=== PATIENT | male | born 1945 | race Caucasian/White ===

== ENCOUNTER 2017-06-24 14:42 | Emergency (ER) | payer MEDICARE, BC ==
[2017-06-24 17:16] LABS: Urine Bacteria Absent (Absent); Urine Bilirubin Negative (Negative); Urine Glucose Negative (Negative); Urine Nitrite Negative (Negative)
--- NOTE | 2017-06-24 17:21 | RAD ---
Indication: Left lower quadrant pain. CT of the abdomen and pelvis was performed without oral or IV contrast administration. Coronal and sagittal reconstructed images were obtained. The lung bases demonstrate pleural thickening in the left lung base with left basilar atelectasis. No alveolar consolidation is noted. Chronic pleural changes likely due to prior lung carcinoma is noted. There is a small nodule in the right middle lobe measuring 3 mm which was present on prior exam of May 23, 2017. The liver is normal in size. Mild diffuse decreased density of the liver is present consistent with hepatic steatosis. More focal hepatic steatosis is noted in the posterior aspect of the medial segment of the left lobe of liver. The gallbladder demonstrates no calcified gallstones. No pericholecystic fluid or wall thickening is identified. The pancreas demonstrates no mass or pancreatic duct dilatation. The spleen is normal in size. No adrenal lesions are noted. The kidneys demonstrates no hydronephrosis. Aorta and inferior vena cava are unremarkable. No dilated loops of bowel are noted. CT of the pelvis demonstrates focal wall thickening at the junction between the descending colon and the sigmoid colon consistent with diverticulitis. Focal wall thickening is noted. Pericolonic infiltration of fat is noted. No evidence of peridiverticular abscess is noted. Urinary bladder is unremarkable. The prostate is otherwise unremarkable. IMPRESSION: DIVERTICULITIS OF THE JUNCTION BETWEEN THE DESCENDING COLON AND SIGMOID COLON WITHOUT EVIDENCE OF PERIDIVERTICULAR ABSCESS. NODULE IN THE RIGHT MIDDLE LOBE IS UNCHANGED FROM PREVIOUS EXAM.
[2017-06-24 17:25] LABS: Hematocrit 38 % (42-52); Hemoglobin 12.9 g/dl (14.0-18.0); Mean Corpuscular HGB Conc 34 g/dl (31-36); Mean Corpuscular Hemoglobin 29 pg (27-31); Mean Corpuscular Volume 87 fL (80-94); Mean Platelet Volume 8 um3 (7.4-10.4); Red Blood Count 4.41 10^6/ul (4.0-5.4); Red Cell Distribution Width 15 % (10.5-15)
[2017-06-24 17:37] LABS: ALT 22 U/L (7-52); AST 21 U/L (13-39); Albumin 4.2 g/dL (3.2-5.2); Alkaline Phosphatase 100 U/L (34-104); Anion Gap 7 mmol/L (2-11); BUN/Creatinine Ratio 11.6 (8-20); Blood Urea Nitrogen 20 mg/dL (6-24); C Reactive Protein 75.42 mg/L (< 5.00); CO2 Carbon Dioxide 29 mmol/L (22-32); Calcium 9.4 mg/dL (8.6-10.3); Chloride 100 mmol/L (101-111); EGFR African American 50.5 (>60); EGFR Non-African American 39.2 (>60); Globulin 2.9 g/dL (2-4); Glucose 114 mg/dL (70-100); Lipase < 10 U/L (11.0-82.0); Potassium 4.1 mmol/L (3.5-5.0); Sodium 136 mmol/L (133-145); Total Protein 7.1 g/dL (6.4-8.9)
[2017-06-24 17:48] VITALS: BP 127/69
--- NOTE | 2017-06-24 22:24 | ED ---
Camilla Novoa Alfonso, scribed for Mike Terrell MD on 06/24/17 at 1614 . Abdominal Pain/Male - HPI Summary HPI Summary: This patient is a 72 year old M presenting to [facility] with a chief complaint of LLQ abdominal pain since yesterday. The patient rates the pain 9/10 in severity. Symptoms aggravated by movement. Symptoms alleviated by nothing. Patient reports loss of appetite. His last BM was at 1100 today. He reports having diverticulitis 30 years ago and these symptoms are similar. - History of Current Complaint Chief Complaint: EDAbdPain Stated Complaint: ABD PAIN Time Seen by Provider: 06/24/17 15:52 Hx Obtained From: Patient Onset/Duration: Sudden Onset, Lasting Days - yesterday, Still Present Timing: Constant Severity Initially: Severe Severity Currently: Severe Pain Intensity: 9 Pain Scale Used: 0-10 Numeric Location: Discrete At: LLQ Aggravating Factor(s): Movement Alleviating Factor(s): Nothing Associated Signs And Symptoms: Positive: Decreased Appetite Similar Episode/Dx As:: diverticulitis 30 years ago - Allergies/Home Medications Allergies/Adverse Reactions: Allergies Allergy/AdvReac Type Severity Reaction Status Date / Time Sulfa Antibiotics Allergy Hives Verified 07/29/16 13:42 PMH/Surg Hx/FS Hx/Imm Hx Endocrine/Hematology History: Denies: Hx Diabetes Cardiovascular History: Reports: Hx Hypertension - ON MEDS Denies: Hx Pacemaker/ICD, Other Cardiovascular Problems/Disorders Respiratory History: Reports: Hx Chronic Obstructive Pulmonary Disease (COPD), Hx Sleep Apnea, Other Respiratory Problems/Disorders - LUNG MASS / COPD ACCORDING TO H&P 1/2 LEFT LUNG REMOVED GI History: Reports: Hx Gastroesophageal Reflux Disease, Hx Hiatal Hernia Denies: Other GI Disorders History: Reports: Other Problems/Disorders - ENLARGE PROSTATE, CONTROL WITH MEDS Denies: Hx Renal Disease Musculoskeletal History: Reports: Hx Arthritis - HANDS Sensory History: Denies: Hx Contacts or Glasses, Hx Hearing Aid Opthamlomology History: Denies: Hx Contacts or Glasses Psychiatric History: Denies: Hx Panic Disorder - Cancer History Cancer Type, Location and Year: lung Hx Chemotherapy: No - Surgical History Surgery Procedure, Year, and Place: 2011 T1, T2 LAMINOTOMY AND EXCISION OF HERNIATED DISC, [facility]. 2016 RIGHT TOE SURGERY, [facility]. LEFT FOOT REMOVED FIBROMATOSIS TUMORS 3084-9150. 1/2 LEFT LUNG REMOVED 05/27/16 Hx Anesthesia Reactions: No Infectious Disease History: No Infectious Disease History: Denies: Traveled Outside the [place] in Last 30 Days - Family History Known Family History: Negative: Cardiac Disease, Diabetes - Social History Alcohol Use: Occasionally Alcohol Amount: SOCIALLY Substance Use Type: Reports: None Smoking Status (MU): Former Smoker Amount Used/How Often: 2 PPD FOR 45 YEARS Have You Smoked in the Last Year: No Review of Systems Negative: Fever Positive: Abdominal Pain - LLQ pain, Other - loss of appetite All Other Systems Reviewed And Are Negative: Yes Physical Exam Triage Information Reviewed: Yes Vital Signs On Initial Exam: Initial Vitals Temp Pulse Resp BP Pulse Ox 98.3 F 107 20 136/94 96 06/24/17 14:46 06/24/17 14:46 06/24/17 14:46 06/24/17 14:46 06/24/17 14:46 Vital Signs Reviewed: Yes Appearance: Positive: Well-Appearing, No Pain Distress Skin: Positive: Warm, Skin Color Reflects Adequate Perfusion, Dry Head/Face: Positive: Normal Head/Face Inspection Eyes: Positive: Normal ENT: Positive: Normal ENT inspection Neck: Positive: Supple, Nontender Cardiovascular: Positive: RRR Abdomen Description: Positive: Soft, Other: - LLQ tenderness Bowel Sounds: Positive: Present Musculoskeletal: Positive: Normal, Strength/ROM Intact Neurological: Positive: Normal, Sensory/Motor Intact, Alert, Oriented to Person Place, Time, CN Intact II-III Psychiatric: Positive: Affect/Mood Appropriate - Kenn Coma Scale Coma Scale Total: 15 Diagnostics - Vital Signs Vital Signs Temp Pulse Resp BP Pulse Ox 06/24/17 16:00 98 93 06/24/17 15:55 98.3 F 109 20 130/65 98 06/24/17 15:51 107 97 06/24/17 15:49 130/65 06/24/17 14:46 98.3 F 107 20 136/94 96 - Laboratory Lab Results: Lab Results 06/24/17 06/24/17 06/24/17 Range/Units 16:54 17:10 17:10 WBC 10.0 (3.5-10.8) 10^3/ul RBC 4.41 (4.0-5.4) 10^6/ul Hgb 12.9 L (14.0-18.0) g/dl Hct 38 L (42-52) % MCV 87 (80-94) fL MCH 29 (27-31) pg MCHC 34 (31-36) g/dl RDW 15 (10.5-15) % Plt Count 166 (150-450) 10^3/ul MPV 8 (7.4-10.4) um3 Neut % (Auto) 75.7 (38-83) % Lymph % (Auto) 10.6 L (25-47) % [place] % (Auto) 12.3 H (1-9) % Eos % (Auto) 0.9 (0-6) % Baso % (Auto) 0.5 (0-2) % Absolute Neuts (auto) 7.5 (1.5-7.7) 10^3/ul Absolute Lymphs (auto) 1.1 (1.0-4.8) 10^3/ul Absolute Monos (auto) 1.2 H (0-0.8) 10^3/ul Absolute Eos (auto) 0.1 (0-0.6) 10^3/ul Absolute Basos (auto) 0.1 (0-0.2) 10^3/ul Absolute Nucleated RBC 0 10^3/ul Nucleated RBC % 0 Sodium 136 (133-145) mmol/L Potassium 4.1 (3.5-5.0) mmol/L Chloride 100 L (101-111) mmol/L Carbon Dioxide 29 (22-32) mmol/L Anion Gap 7 (2-11) mmol/L BUN 20 (6-24) mg/dL Creatinine 1.73 H (0.67-1.17) mg/dL Est GFR ( Amer) 50.5 (>60) Est GFR (Non-Af Amer) 39.2 (>60) BUN/Creatinine Ratio 11.6 (8-20) Glucose 114 H (70-100) mg/dL Lactic Acid (0.5-2.0) mmol/L Calcium 9.4 (8.6-10.3) mg/dL Total Bilirubin 0.80 (0.2-1.0) mg/dL AST 21 (13-39) U/L ALT 22 (7-52) U/L Alkaline Phosphatase 100 (34-104) U/L C-Reactive Protein 75.42 H (< 5.00) mg/L Total Protein 7.1 (6.4-8.9) g/dL Albumin 4.2 (3.2-5.2) g/dL Globulin 2.9 (2-4) g/dL Albumin/Globulin Ratio 1.4 (1-3) Lipase < 10 L (11.0-82.0) U/L Urine Color Yellow Urine Appearance Cloudy Urine pH 5.0 (5-9) Ur Specific [place] 1.020 (1.010-1.030) Urine Protein Negative (Negative) Urine Ketones Negative (Negative) Urine Blood 1+ H (Negative) Urine Nitrate Negative (Negative) Urine Bilirubin Negative (Negative) Urine Urobilinogen Negative (Negative) Ur Leukocyte Esterase Negative (Negative) Urine WBC (Auto) Absent (Absent) Urine RBC (Auto) 1+(3-5/hpf) H (Absent) Urine Bacteria Absent (Absent) Urine Glucose Negative (Negative) 06/24/17 Range/Units 17:10 WBC (3.5-10.8) 10^3/ul RBC (4.0-5.4) 10^6/ul Hgb (14.0-18.0) g/dl Hct (42-52) % MCV (80-94) fL MCH (27-31) pg MCHC (31-36) g/dl RDW (10.5-15) % Plt Count (150-450) 10^3/ul MPV (7.4-10.4) um3 Neut % (Auto) (38-83) % Lymph % (Auto) (25-47) % [place] % (Auto) (1-9) % Eos % (Auto) (0-6) % Baso % (Auto) (0-2) % Absolute Neuts (auto) (1.5-7.7) 10^3/ul Absolute Lymphs (auto) (1.0-4.8) 10^3/ul Absolute Monos (auto) (0-0.8) 10^3/ul Absolute Eos (auto) (0-0.6) 10^3/ul Absolute Basos (auto) (0-0.2) 10^3/ul Absolute Nucleated RBC 10^3/ul Nucleated RBC % Sodium (133-145) mmol/L Potassium (3.5-5.0) mmol/L Chloride (101-111) mmol/L Carbon Dioxide (22-32) mmol/L Anion Gap (2-11) mmol/L BUN (6-24) mg/dL Creatinine (0.67-1.17) mg/dL Est GFR ( Amer) (>60) Est GFR (Non-Af Amer) (>60) BUN/Creatinine Ratio (8-20) Glucose (70-100) mg/dL Lactic Acid 1.0 (0.5-2.0) mmol/L Calcium (8.6-10.3) mg/dL Total Bilirubin (0.2-1.0) mg/dL AST (13-39) U/L ALT (7-52) U/L Alkaline Phosphatase (34-104) U/L C-Reactive Protein (< 5.00) mg/L Total Protein (6.4-8.9) g/dL Albumin (3.2-5.2) g/dL Globulin (2-4) g/dL Albumin/Globulin Ratio (1-3) Lipase (11.0-82.0) U/L Urine Color Urine Appearance Urine pH (5-9) Ur Specific [place] (1.010-1.030) Urine Protein (Negative) Urine Ketones (Negative) Urine Blood (Negative) Urine Nitrate (Negative) Urine Bilirubin (Negative) Urine Urobilinogen (Negative) Ur Leukocyte Esterase (Negative) Urine WBC (Auto) (Absent) Urine RBC (Auto) (Absent) Urine Bacteria (Absent) Urine Glucose (Negative) Result Diagrams: 06/24/17 17:10 06/24/17 17:10 Lab Statement: Any lab studies that have been ordered have been reviewed, and results considered in the medical decision making process. - CT A/P CT Interpretation Completed By: Radiologist - DIVERTICULITIS OF THE JUNCTION BETWEEN THE DESCENDING COLON AND SIGMOID COLON WITHOUT EVIDENCE OF PERIDIVERTICULAR ABSCESS. NODULE IN THE RIGHT MIDDLE LOBE IS UNCHANGED FROM PREVIOUS EXAM. ED physician has reviewed this radiology report and agrees. Abdominal Pain Fem Course/Dx - Course Course Of Treatment: Mr. Pitts presented with LLQ pain and was found to have diverticulitis. - Diagnoses Provider Diagnoses: Diverticulitis Discharge - Discharge Plan Condition: Stable Disposition: HOME Prescriptions: Ciprofloxacin TAB* [Cipro Tab*] 500 mg PO BID #20 tab Metronidazole [Flagyl 500 MG TAB] 500 mg PO TID #30 tab Patient Education Materials: Diverticulitis (ED) Referrals: Mihaela Mota, SITE WORKER [Primary Care Provider] - 1 Week The documentation as recorded by the Camilla bailey Alfonso accurately reflects the service I personally performed and the decisions made by me, Mike Terrell MD.
== END 2017-06-24 18:21 | disposition home or self-care (01) ==
LOC: ED 14:42
DX: K57.92 Diverticulitis of intestine, part unspecified, without perforation or abscess without bleeding (principal); R10.32 Left lower quadrant pain; R63.0 Anorexia
CPT/HCPCS: 36415; 74176; 80053; 81003; 81015; 83605; 83690; 85025; 86140; 99282

== ENCOUNTER 2018-12-28 10:02 | Inpatient (IN) | payer MEDICARE, BC ==
[2018-12-28] MEDS ORDERED: oxyCODONE/Acetamin 5/325 MG* TAB PO PRN (10:35)
[2018-12-28] MEDS ORDERED: Al Hydrox/Mg Hydrox/Simet LIQ* 30 ML UDC PO PRN (10:35)
[2018-12-28] MEDS ORDERED: hydrOXYzine HCL TAB* 25 MG PO PRN (10:40)
--- OUTSIDE RECORDS SUMMARY | 2018-12-28 11:27 | XMS REPORT | Continuity of Care Document ---
:1945 External Reference #:[id number] Author Name Mihaela Mota N.P. Address [address] [place] [address] Care Team Providers Name Role Phone Mihaela Mota N.P. Care Team Information Material Control Analyst Unavailable Payers Date Identification Numbers Payment Provider Subscriber Effective: 2012 Policy Number: [id number] Medicare Xander Pitts Group Name: [facility] [address] PayID: [id number] [place] [address] Policy Number: [id number] [facility] Xander Pitts PayID: [id number] [address] [place] [address] Advance Directives Description No Information Available Problems Date Description Provider Status Onset: 04/20/2007 Peptic reflux disease Mihaela Mota N.PTim Active Onset: 04/20/2007 Allergic rhinitis due to pollen Mihaela Mota N.PTim Active Onset: 05/30/2015 Benign hypertension Mihaela Mota N.PTim Active Onset: 08/29/2015 Osteoarthritis Mihaela Mota, N.PTim Active Onset: 08/10/2016 Primary malignant neoplasm of lung Mihaela Mota, N.PTim Active Onset: 11/22/2016 History of malignant neoplasm of lung Mihaela Mota, N.PTim Active Onset: 02/17/2018 Foot joint pain Mihaela Mota N.Gonzalo Active Family History Date Family Member(s) Observation Comments Father Unknown Mother COPD Number of Siblings Siblings: 3 Order Patient is the oldest of four children Social History Type Date Description Comments Sex Unknown Marital Status Occupation Retired [employer] Tobacco Use Start: Unknown current cigarette smoker 2 ppd Cigarette Use Quit - Age 69 ETOH Use Occasionally consumes alcohol Recreational Drug Use Denies Drug Use Tobacco Use Start: Unknown Patient has never smoked Smoking Status Reviewed: 08/15/18 Patient has never smoked Sun Exposure moderate amount of sun exposure Sun Exposure Does not use sunscreen Seat Belt/Car Seat sometimes uses car seat Allergies, Adverse Reactions, Alerts Date Description Reaction Status Severity Comments Sulfa Active 02/21/2014 Guaifenesin rash Active Medications Medication Date Status Form Strength Qnty SIG Indications Ordering Provider Omeprazole 11/02 Active Capsules 40mg 90caps take one Nakul DR xu Chairez, by mouth N.P. every day Ciprofloxacin 08/29 Active Tablets 500mg 20tabs 1 by Nakul HCL mouth Maskrystinale, twice a N.P. day x 10 days Omeprazole 08/04 Active Capsules 20mg 180caps [address] eulalia Chairez, twice a N.P. day Montelukast 08/04 Active Tablets 10mg 90tabs take one Nakul Sodium tablet by Mascarmita, mouth N.P. every day in the evening Pneumovax 23 08/04 Active Injection 25mcg/0.5 [place] ML Mihaela, N.P. Fluocinonide 07/18 Active Cream 0.05% 30gm apply sparingly Mashelle, to itchy N.P. rash on head three times a day Metoprolol 01/25 Active Tablets ER 50mg 90tabs Take One Nakul, Succinate ER 24HR Tablet By Maskrystinale, Mouth N.P. Every Day Losartan 11/08 Active Tablets 100mg 90tabs Take One Nakul, Potassium Tablet By Mashelle, Mouth N.P. Every Day Cialis 04/13 Active Tablets 20mg 18tabs 1 po as Nakul directed Maskrystinale, N.P. Finasteride 10/26 Active Tablets 5mg 90tabs take one Nakul, tablet by Maskrystinale, mouth N.P. every day Valtrex 05/21 Active Tablets 500mg 90tabs 1 by Nakul mouth Mashelle, every day N.P. Amoxicillin/Clav 07/18 Hx Tablets 875-125mg 20tabs 1 by Nakul ule mouth Mashelle, Potassium - twice a N.P. 08/04 day x days Omeprazole 03/16 Hx Capsules 40mg 90caps take one DR capsule Mihaela, - by mouth N.P. 08/04 every Omeprazole 02/17 Hx Capsules 20mg 30caps Take One DR Capsule Mihaela, - By Mouth N.P. 03/16 Every Amoxicillin/Clav 11/29 Hx Tablets 875-125mg 28tabs 1 by Nakul mouth Mashelle, Potassium - twice a N.P. 12/13 day x days Augmentin 11/22 Hx Tablets 875-125mg 20tabs 1 by Nakul mouth Mashelle, - twice a N.P. 01/25 day x days Symbicort 02/24 Hx Aerosol 160-4.5mc sample inhale 2 g/Act puffs by Mihaela, - mouth 2 N.P. 08/04 times day Fluticasone 01/01 Hx Suspension 50mcg/Act 16units spray 2 sprays in [facility], - each N.P. 01/25 nostr every morning as needed Cefdinir 11/28 Hx Capsules 300mg 28caps 1 by mouth Mashelle, - twice a N.P. 01/04 day x days Diclofenac 11/[address] 50mg 180tabs 1 by Nakul mouth Mashelle, - twice a N.P. Augmentin 07/22 Hx Tablets 875-125mg 28tabs 1 by mouth Mashelle, - twice a N.P. 08/29 day x days Fluocinonide 05/30 Hx Cream 0.05% 30gm apply sparingly Mashelle, - three N.P. 02/24 times day Omeprazole 05/30 Hx Capsules 40mg 90caps take one DR capsule Lucinale, - by mouth N.P. 02/17 every Levocetirizine 01/13 Hx Tablets 5mg 90tabs Take One Nakul Dihydrochloride Tablet By Mihaela, - Mouth N.P. 08/04 Every Celecoxib 10/28 Hx Capsules 200mg 60caps 1 by mouth bid Mihaela, - N.P. 08/29 Omeprazole 10/21 Hx Capsules 20mg 180caps [address] eulalia Chairez, - twice a N.P. Omeprazole 10/11 Hx Capsules 40mg 30caps [address] eulalia Chairez, - every N.P. 10/21 night at bedtime Medrol (Preet) 07/29 Hx Tablets 4mg 1pk as directed Mihaela, - N.P. 12/26 Diflucan 07/29 Hx Tablets 100mg 16tabs 2 tabs on day one Mihaela, - then N.P. 05 every x 14 days Augmentin 07/16 Hx Tablets 875-125mg 28tabs 1 by mouth Mascarmita, - twice a N.P. 07/29 day x days Ciprofloxacin 07/11 Hx Tablets 500mg 20tabs 1 by Nakul, mouth Mihaela, - twice a N.P. 07/16 day x days Cefdinir 02/21 Hx Capsules 300mg 28caps 1 po bid x 14 days Mihaela, - N.P. 04/16 Fluocinolone 10/11 Hx Cream 0.01% 60gm apply to affected Mascarmita, - area bid N.P. 10/11 Fluocinonide 10/11 Hx Cream 0.05% 30gm apply sparingly Mihaela, - three N.P. /05 times day Augmentin 08/23 Hx Tablets 875-125mg 28tabs 1 po bid x 14 days Mihaela, - N.P. 02/21 Axiron 05/16 Hx Solution 30mg/Act 1bottle apply 2 capfuls Mihaela, - (60mg) N.P. 11/08 qd directed Benicar 04/13 Hx Tablets 40mg 90tabs 1 po qd Mashelle, - N.P. 11/08 Fortesta 04/13 Hx Gel 10mg/Act 60gm 1 pump (2%) one thigh Mashelle, - qd as N.P. 05/16 directed x 1 week then 1 pump each thigh qd Metoprolol 04/13 Hx Tablets ER 25mg 90tabs 1 by Nakul, Succinate ER 24HR mouth Mascarmita, - every day N.P. 01/25 Augmentin 12/15 Hx Tablets 875-125mg 28tabs 1 by Nakul mouth Mihaela, - twice a N.P. 07/11 day x days Benicar 08/23 Hx Tablets 20mg 90tabs 1 po qd Nakul Mashelle, - N.P. 04/13 Cipro 07/18 Hx Tablets 500mg 20tabs 1 po bid Nakul x 10 days Lucinale, - N.P. 08/23 Flagyl 07/18 Hx Tablets 500mg 21tabs 1 po tid Nakul x 7 days Mihaela, - N.P. 08/23 Amoxicillin/Clav 06/15 Hx Tablets 875-125mg 28tabs 1 po q 12 tita Mota h for 14 Mascarmita, Potassium - days N.P. 07/18 Celebrex 03/13 Hx Capsules 200mg 90caps 1 by Nakul mouth Mihaela, - every day N.P. 10/28 Oxycodone/Acetam 01/06 Hx Tablets 10-325mg 32tabs 1 po q 6 Nakul inophen hours prn [place], - pain N.P. 02/08 Hydrocodone 05 Hx Tablets 5-300mg 40tabs 1-2 po q Nakul Bitartrate/Aceta 4-6h prn Mascarmita, minophen - pain N.P. 12/26 Hydrocodone/Acet /05 Hx Tablets 5-325mg 40tabs 1-2 po q Nakul 4-6h prn Mashelle, - pain N.P. 01/06 Soma 12/22 Hx Tablets 350mg 40tabs 1 po qid Nakul Mashelle, - N.P. 06/15 Oxycodone HCL 12/22 Hx Tablets 5mg 40tabs 1-2 po q 4 hours Mashelle, - prn pain N.P. 12/26 Celebrex 12/22 Hx Capsules 200mg samples 1 po qd Nakul Mashelle, - N.P. 02/01 Celebrex 12/14 Hx Capsules 200mg 30caps 1 po qd [place] Mashelle, - N.P. 12/14 Mobic 12/14 Hx Tablets 15mg 90tabs 1 po qd Nakul Mashelle, - N.P. 03/13 Naproxen 11/11 Hx Tablets 500mg 60tabs 1 po bid [place] Mashelle, - N.P. 12/14 Vimovo 10/[address] 500-20mg 60tabs 1 po bid Mashelle, - N.P. 11/11 Cialis 10/26 Hx Tablets 10mg samples one as directed Maskrystinale, - N.P. 08/23 Augmentin 06/14 Hx Tablets 875-125mg 28tabs 1 po bid [place] x 14 days Mashelle, - N.P. 10/26 Keflex 06/04 Hx Capsules 500mg 40caps 1 po qid [place] x 10 days Mashelle, - N.P. 06/14 Xyzal 05/21 Hx Tablets 5mg 90tabs 1 by mouth Mashelle, - every day N.P. 05/30 Doxycycline 05/[address] 100mg 31caps 2 po x 1 [place], Part day then Mashelle, - 1 qd x 30 N.P. Keflex 04/28 Hx Capsules 500mg 28caps 1 po qid [place] x 7 days Mashelle, - N.P. 05/21 Biaxin XL 02/02 Hx Tablets ER 500mg 10tabs 1 po qd x [place] 24HR 10 days Maskrystinale, - N.P. 04/28 Cardura 01/21 Hx Tablets 1mg 30tabs 1 po qam Nakul, Mashelle, - N.P. 01/21 Avodart 01/21 Hx Capsules 0.5mg 90caps 1 po qd [place], Mashelle, - N.P. 10/26 Cardura 01/21 Hx Tablets 1mg 30tabs 1 po qam Nakul, Mashelle, - N.P. 09/14 Augmentin 01/21 Hx Tablets 875-125mg 20tabs 1 po bid Nakul, x 10 days Mashelle, - N.P. 02/02 Prednisone 01/21 Hx Tablets 50mg 3tabs 1 po qd x Nakul 3 days Maskrystinale, - N.P. 05/21 Augmentin 10/12 Hx Tablets 875-125mg 20tabs 1 po bid [place] x 10 days Maskrystinale, - N.P. 01/21 Princess-D 12 09/21 Hx Tablets ER 60-120mg 90tabs 1 po qd [place], 12HR Maskrystinale, - N.P. 05/21 Avelox 09/21 Hx Tablets 400mg samples 1 po qd x Nakul 10 days Maskrystinale, - N.P. 10/12 Clarinex-D 24 08/12 Hx Tablets ER 5-240mg 30tabs 1 po qd Nakul, 24HR Maskrystinale, - N.P. 09/21 Cipro 07/20 Hx Tablets 500mg 28tabs 1 po bid Nakul x 14 days Maskrystinale, - N.P. 09/21 Princess-D 24 07/20 Hx Tablets ER 180-240mg samples 1 po q am Nakul, 24HR Maskrystinale, - N.P. 08/12 Celebrex 04/20 Hx Capsules 200mg 90caps 1 po qd [place] Mashelle, - N.P. 10/26 Cipro 02/24 Hx Tablets 500mg 20tabs 1 po bid x 10 days Maskrystinale, - N.P. 07/20 Anaprox DS 11/25 Hx Tablets 550mg 60tabs 1 po q 12 hr with Mascarmita, - food N.P. 02/24 Valtrex 17 Hx Tablets 1gm 90tabs 1 po qd as Mihaela, - directed N.P. 09/21 Valtrex 09/09 Hx Tablets 1gm 90tabs 1 po qd [place], Maskrystinale, - N.P. 05/21 Zovirax 09/09 Hx Ointment 5% [facility]gm [facility] day to N.P. 02/17 sor Diflucan 09/03 Hx Tablets 100mg 7tabs 1 tabs qd x 7 days Mihaela, - N.P. 06/15 Cipro 08/19 Hx Tablets 750mg 20tabs 1 bid x , 10 days Maskrystinale, - N.P. 09/03 Princess 08/12 Hx Tablets 180mg 30tabs 1 po qd , Mihaela, - N.P. 09/21 Augmentin 02/26 Hx Tablets 875mg 20tabs 1 po q [address] [facility] 08/12 Xyzal 02/26 Hx Tablets 5mg samples 1 po qd , Maskrystinale, - N.P. 08/12 Omnicef 01/28 Hx Capsules 300mg 20caps 1 po bid , x 10 days Maskrystinale, - N.P. 02/26 Cipro 01/20 Hx Tablets 750mg 20tabs 1 bid x , 10 days Maskrystinale, - N.P. 01/28 Omeprazole 09/16 Hx Capsules 20mg 90caps [address] Chairez, - N.P. 10/11 Proscar 09/16 Hx Tablets 5mg 90tabs 1 po qd [place], /2008 Mashelle, - N.P. 10/26 Keflex 09/06 Hx Capsules 500mg 28caps 1 PO qid X 7 Days Mashelle, - N.P. 01/20 Avelox 07/23 Hx Tablets 400mg 14tabs 1 PO qd X Nakul 14 Days Mashelle, - N.P. 01/20 Guaifenesin-Pseu 01/09 Hx Tablets ER 12HR 462 [place], doephedrine 12HR Susan Farmer RN MS 01/09 Guaifenesin/Pseu 01/09 Hx Tablets ER 1200/120 60tabs 1 tab bid 2 [place], doephed 12HR Susan Farmer RN MS 08/12 Avelox 01/09 Hx Tablets 400mg 10tabs 1 po qd 2 Susan Farmer RN MS 01/29 No Work 01/09 Hx D/T out of [facility] work rest Susan - of week . Darian RN MS 08/12 return on tuesday01/15/08 to full duty. Prednisone 12/25 Hx Tablets 20mg 26tabs 2 po qd x 5, 1 1/2 Mashelle, - po qd x N.P. 01/20 5, 1 po qd x 5, 1/2 po qd x 5 Diflucan 12/25 Hx Tablets 200mg 1 po qd x [place] 3 days Mashelle, - N.P. 01/09 Duratuss GP 12/21 Hx Tablets ER 25-1200 60tabs 1 po 12 12HR hours Elaine Banegas MD 01/09 Avelox 12/21 Hx Tablets 400mg 14tabs 1 PO qd Trabout Elaine Banegas MD 01/09 Omnicef 10/30 Hx Capsules 300mg 28caps 1 PO bid X 14 Days Maskrystinale, - N.P. 12/21 Lidex-E 10/20 Hx Cream 0.05% 60gm apply sparingly Mashelle, - bid N.P. 10/20 Lidex 10/20 Hx Cream 0.05% 60gm Apply Sparingly Mashelle, - bid N.P. 06/15 Avelox 09/04 Hx Tablets 400mg 10tabs 1 PO qd X 10 Mashelle, - N.P. 10/30 Augmentin 08/07 Hx Tablets 875mg 20tabs 1 PO Q 12H With Bassam, - Food X 10 MD Diflucan 03/07 Hx Tablets 100mg 7tabs 1 tabs qd x 7 days Maskrystinale, - N.P. 07/13 Lotrisone 03/07 Hx Cream 60G apply bid x 14 days Mashelle, - N.P. 08/12 Ambien CR 02/03 Hx 12.5mg 30units 1 po q hs Mascarmita, - N.P. 07/13 Ibuprofen 02/03 Hx Tablets 800mg 40tabs 1 po qid with food Mihaela, - x 10 days N.P. 03/07 Physical Therapy 02/03 Hx iontophor Nakul, esis R Mihaela, - wrist N.P. 07/13 dx: tendoniti s Work Excuse 02/03 Hx no work 02/06-02/12 Mihaela, - N.P. 07/13 for medical reasons Ambien 01/17 Hx Tablets 5mg 60tabs 1-2 po q hs prn Mihaela, - N.P. 02/03 Singulair 01/05 Hx Tabs 5mg 30tabs 1 po q pm Elaine Banegas MD 07/13 Avelox 01/05 Hx Tablets 400mg 21tabs 1 PO qd Elaine Banegas MD 01/15 Medrol Dose Preet 01/05 Hx Tablets 4mg 1tabs as directete Elaine Banegas MD 02/03 Omnicef 12/23 Hx Capsules 300mg 20caps 1 po bid Nakul x 10 days Mashelle, - N.P. 01/02 Flagyl 09/27 Hx Tablets 500mg 30tabs 1 po tid Nakul x 10 days Mashelle, - N.P. 07/13 Zyrtec 09/19 Hx Tablets 10mg 90tabs 1 po qd Nakul Mashelle, - N.P. 01/09 Medrol Dose Preet 09/19 Hx Tablets 4mg 1PK as directed Mashelle, - N.P. 12/23 Lidex 09/19 Hx Cream 0.05% 60gm apply bid Nakul x 10 days Mashelle, - N.P. 07/13 Keflex 09/09 Hx Capsules 500mg 28caps 1 po qid [place] x 7 days Mashelle, - N.P. 09/19 Avodart 08/25 Hx Capsules 0.5mg 90caps 1 po qd Nakul Mashelle, - N.P. 09/16 Augmentin 08/18 Hx Tablets 875mg 28tabs 1 po q x 14 days Mashelle, - N.P. 09/01 Cipro 07/28 Hx Tablets 750mg 28tabs 1 bid X Nakul 14 Days Mashelle, - N.P. 08/11 Duratuss GP 07/28 Hx Tablets 1200mg;12 30tabs 1 po q 0 mg h Maskrystinale, - N.P. 12/21 Lab Request 07/28 Hx cbc, cm, lipids, Mas, - vit b12, N.P. 07/13 acid dx: fatigue, glossitis Princess 04/12 Hx Tablets 180mg 90tabs 1 po qd [place] Mashelle, - N.P. 09/19 Keflex 12/14 Hx Capsules 500mg 40caps 1 po qid [place] x 10 days Mashelle, - N.P. 04/12 Cipro 11/11 Hx Tablets 500mg 20tabs 1 po bid Nakul x 10 days Mihaela, - N.P. 04/12 Duratuss GP 11/11 Hx Tablets 1200mg;12 24tabs 1 po q 12 Nakul 0 mg h Mihaela, - N.P. 04/12 Nasonex 11/11 Hx Suspension 50mcg 1units 2 Sprays Nakul, Intranasal Blue Grass Ea Mihaela, - Nostril N.P. 07/13 qd Flomax 09/21 Hx Capsules 0.4mg 90caps one po qd [place] 30 Maskrystinale, - minutes N.P. 09/27 after meal Clarinex 03/19 Hx Tablets 5mg 90tabs 1 po qd Nakul prn Mihaela, - N.P. 04/12 Nexium 03/19 Hx Capsules 40mg 90caps 1 po [place] 1/2hour Mihaela, - prior to N.P. 09/16 dinner Celebrex 01/26 Hx Capsules 200mg 180caps 1 po bid [place] Mascarmita, - N.P. 11/25 Avelox 12/14 Hx Tablets 400mg 7tabs 1 po qd [place], Mihaela, - N.P. 11/11 Zithromax Z-preet 11/11 Hx Tablets 250mg take as Trabout directed Elaine Banegas MD 09/21 Singulair 00 Hx Tablets 10mg 90tabs Take One [place], /0000 Tablet By Mihaela, - Mouth N.P. 08/04 Every In The Evening Immunizations CPT Code Status Date Vaccine Lot # [id number] Given 08/15/2018 Pneumococcal 23 Immunization Adult Or Immunosuppressed Patient 00626 Given 08/04/2018 Influenza Vac, Quadrivalent, Split, 0.5mL Dosage, [id number] Im Use 02221 Given 07/18/2017 Influenza Vac, Quadrivalent, Split, 0.5mL Dosage, [id number] Im Use 31525 Given 07/26/2016 Influenza Vac, Quadrivalent, Split, 0.5mL Dosage, [id number] Im Use 13914 Given 08/08/2015 Influenza Vac, Quadrivalent, Split, 0.5mL Dosage, [id number] Im Use Q2038 Given 07/29/2014 Fluzone Trivalent Immunization [id number] Q2038 Given 10/12/2012 Fluzone Trivalent Immunization [id number] Q2038 Given 09/28/2011 Fluzone Trivalent Immunization [id number] Given 04/28/2011 Tdap (Adacel) Ages 7 And Above Only [id number] 20250 Given 08/21/2007 Afluria Or Fluvirin Flu Vac Intramuscular [id number] Vital Signs Date Vital Result Comment 12/11/2018 1:32pm Body Temperature 97.8 F Weight 234.00 lb Heart Rate 92 /min BP Systolic 130 mmHg BP Diastolic 76 mmHg O2 % BldC Oximetry 98 % 08/29/2018 11:52am Body Temperature 98.8 F Weight 237.38 lb Heart Rate 93 /min BP Systolic 118 mmHg BP Diastolic 66 mmHg O2 % BldC Oximetry 94 % 08/04/2018 9:28am Body Temperature 98.6 F Weight 238.38 lb Heart Rate 84 /min BP Systolic 158 mmHg manual BP Diastolic 90 mmHg manual O2 % BldC Oximetry 96 % 07/18/2018 9:46am Body Temperature 98.2 F Weight 241.00 lb Heart Rate 86 /min BP Systolic 120 mmHg BP Diastolic 84 mmHg O2 % BldC Oximetry 95 % 02/17/2018 10:04am Body Temperature 98.2 F Weight 247.12 lb Heart Rate 84 /min BP Systolic 152 mmHg BP Diastolic 88 mmHg O2 % BldC Oximetry 97 % 12/13/2017 1:21pm Body Temperature 98.1 F Weight 240.00 lb Heart Rate 102 /min BP Systolic 136 mmHg BP Diastolic 76 mmHg O2 % BldC Oximetry 96 % 11/29/2017 12:25pm Body Temperature 97.5 F Weight 244.00 lb Heart Rate 97 /min BP Systolic 140 mmHg BP Diastolic 92 mmHg Height 72 inches 6'0" O2 % BldC Oximetry 94 % BMI (Body Mass Index) 33.1 kg/m2 07/18/2017 10:30am Body Temperature 98.8 F Weight 230.38 lb Heart Rate 85 /min BP Systolic 117 mmHg BP Diastolic 70 mmHg O2 % BldC Oximetry 97 % 01/25/2017 9:57am Body Temperature 98.4 F Weight 235.12 lb Heart Rate 98 /min BP Systolic 128 mmHg BP Diastolic 77 mmHg Height 72 inches 6'0" O2 % BldC Oximetry 95 % BMI (Body Mass Index) 31.9 kg/m2 11/22/2016 2:04pm Body Temperature 98.1 F Weight 228.00 lb Heart Rate 94 /min BP Systolic 144 mmHg BP Diastolic 82 mmHg Height 74 inches 6'2" O2 % BldC Oximetry 96 % BMI (Body Mass Index) 29.3 kg/m2 08/10/2016 3:17pm Body Temperature 97.9 F Weight 229.38 lb Heart Rate 83 /min BP Systolic 154 mmHg BP Diastolic 78 mmHg O2 % BldC Oximetry 94 % 02/25/2016 9:21am Body Temperature 98.8 F Weight 247.00 lb with boot Heart Rate 103 /min BP Systolic 140 mmHg BP Diastolic 76 mmHg O2 % BldC Oximetry 95 % 01/05/2016 10:30am Body Temperature 97.7 F Weight 248.00 lb Heart Rate 103 /min BP Systolic 136 mmHg BP Diastolic 78 mmHg O2 % BldC Oximetry 97 % 12/03/2015 8:29am Body Temperature 97.9 F Weight 246.38 lb Heart Rate 85 /min BP Systolic 143 mmHg BP Diastolic 78 mmHg O2 % BldC Oximetry 97 % 11/13/2015 9:18am Body Temperature 98.6 F Weight 246.25 lb Heart Rate 84 /min BP Systolic 153 mmHg BP Diastolic 84 mmHg O2 % BldC Oximetry 96 % 10/06/2015 9:45am Body Temperature 98.6 F Weight 242.38 lb Heart Rate 86 /min BP Systolic 120 mmHg BP Diastolic 80 mmHg O2 % BldC Oximetry 95 % 08/29/2015 8:06am Body Temperature 98.4 F Weight 241.00 lb Heart Rate 88 /min BP Systolic 120 mmHg BP Diastolic 74 mmHg O2 % BldC Oximetry 96 % 07/22/2015 2:42pm Body Temperature 98.8 F Weight 236.38 lb Heart Rate 84 /min BP Systolic 128 mmHg BP Diastolic 69 mmHg O2 % BldC Oximetry 95 % 05/30/2015 8:23am Body Temperature 97.7 F Weight 236.25 lb Heart Rate 79 /min BP Systolic 128 mmHg BP Diastolic 68 mmHg O2 % BldC Oximetry 96 % 12/26/2014 8:27am Body Temperature 96.9 F Weight 245.00 lb Heart Rate 76 /min BP Systolic 143 mmHg BP Diastolic 88 mmHg Respiratory Rate 20 /min 07/29/2014 1:36pm Body Temperature 97.6 F Weight 227.00 lb Heart Rate 78 /min BP Systolic 130 mmHg BP Diastolic 76 mmHg O2 % BldC Oximetry 96 % 07/11/2014 1:43pm Body Temperature 98.4 F Weight 231.12 lb Heart Rate 73 /min BP Systolic 143 mmHg BP Diastolic 82 mmHg O2 % BldC Oximetry 97 % 04/16/2014 2:31pm Body Temperature 98.3 F Weight 231.25 lb Heart Rate 79 /min BP Systolic 140 mmHg BP Diastolic 70 mmHg O2 % BldC Oximetry 95 % 02/21/2014 2:14pm Body Temperature 98.2 F Weight 236.12 lb Heart Rate 85 /min BP Systolic 132 mmHg BP Diastolic 84 mmHg O2 % BldC Oximetry 98 % 01/08/2014 1:30pm Body Temperature 97.8 F Weight 238.50 lb Heart Rate 70 /min BP Systolic 140 mmHg BP Diastolic 80 mmHg O2 % BldC Oximetry 97 % 11/08/2013 8:07am Body Temperature 98.8 F Weight 233.00 lb Heart Rate 99 /min BP Systolic 138 mmHg BP Diastolic 72 mmHg O2 % BldC Oximetry 96 % 08/23/2013 1:19pm Body Temperature 98.4 F Weight 228.31 lb Heart Rate 81 /min BP Systolic 120 mmHg BP Diastolic 74 mmHg O2 % BldC Oximetry 96 % 05/16/2013 8:21am Body Temperature 96.1 F Weight 226.00 lb Heart Rate 80 /min BP Systolic 124 mmHg BP Diastolic 66 mmHg O2 % BldC Oximetry 97 % 04/13/2013 10:02am Body Temperature 98.4 F Weight 226.25 lb Heart Rate 69 /min BP Systolic 128 mmHg BP Diastolic 62 mmHg O2 % BldC Oximetry 94 % 02/08/2013 8:14am Body Temperature 98.3 F Weight 228.12 lb Heart Rate 83 /min BP Systolic 124 mmHg BP Diastolic 62 mmHg O2 % BldC Oximetry 98 % 12/15/2012 9:03am Body Temperature 96.7 F Weight 233.25 lb Heart Rate 78 /min BP Systolic 148 mmHg BP Diastolic 84 mmHg O2 % BldC Oximetry 96 % 08/23/2012 2:41pm Body Temperature 97.2 F Weight 229.12 lb Heart Rate 86 /min BP Systolic 158 mmHg BP Diastolic 90 mmHg 07/18/2012 10:41am Body Temperature 97.9 F Weight 229.00 lb Heart Rate 86 /min BP Systolic 150 mmHg BP Diastolic 80 mmHg O2 % BldC Oximetry 97 % 06/15/2012 10:18am Body Temperature 97.5 F Weight 227.12 lb Heart Rate 80 /min BP Systolic 138 mmHg BP Diastolic 72 mmHg 01/07/2012 9:34am Body Temperature 97.1 F Weight 226.00 lb Heart Rate 56 /min BP Systolic 178 mmHg BP Diastolic 91 mmHg O2 Saturation Level with Exercise 94 % 12/23/2011 8:45am Body Temperature 97.8 F Weight 228.00 lb Heart Rate 77 /min BP Systolic 163 mmHg BP Diastolic 92 mmHg O2 % BldC Oximetry 97 % 10/26/2011 10:11am Body Temperature 97.5 F Weight 228.00 lb Heart Rate 81 /min BP Systolic 146 mmHg BP Diastolic 87 mmHg O2 Saturation Level with Exercise 95 % 09/14/2011 10:25am Body Temperature 97.6 F Weight 218.00 lb Heart Rate 84 /min BP Systolic 153 mmHg BP Diastolic 89 mmHg O2 % BldC Oximetry 97 % 06/14/2011 10:15am Body Temperature 98.7 F Weight 214.00 lb Heart Rate 88 /min BP Systolic 138 mmHg BP Diastolic 78 mmHg O2 % BldC Oximetry 98 % 05/21/2011 11:42am Body Temperature 98.0 F Weight 209.00 lb Heart Rate 98 /min BP Systolic 126 mmHg BP Diastolic 72 mmHg O2 % BldC Oximetry 94 % 04/28/2011 1:04pm Weight 211.00 lb Heart Rate 105 /min BP Systolic 140 mmHg BP Diastolic 70 mmHg O2 % BldC Oximetry 97 % 01/21/2011 9:04am Body Temperature 97.7 F Weight 225.00 lb Heart Rate 101 /min BP Systolic 140 mmHg BP Diastolic 78 mmHg O2 % BldC Oximetry 99 % 09/21/2010 3:10pm Body Temperature 98.4 F Weight 210.00 lb Heart Rate 92 /min BP Systolic 132 mmHg BP Diastolic 80 mmHg Respiratory Rate 20 /min O2 % BldC Oximetry 98 % 07/20/2010 11:32am Body Temperature 98.4 F Weight 206.00 lb Heart Rate 79 /min BP Systolic 144 mmHg BP Diastolic 78 mmHg Height 71.50 inches 5'11.50" O2 % BldC Oximetry 97 % BMI (Body Mass Index) 28.3 kg/m2 02/24/2010 9:26am Body Temperature 98.4 F Weight 202.00 lb Heart Rate 77 /min BP Systolic 132 mmHg BP Diastolic 68 mmHg Height 71.50 inches 5'11.50" O2 % BldC Oximetry 96 % BMI (Body Mass Index) 27.8 kg/m2 11/25/2009 8:42am Body Temperature 98.3 F Weight 205.00 lb Heart Rate 80 /min BP Systolic 148 mmHg BP Diastolic 72 mmHg Height 71.50 inches 5'11.50" O2 % BldC Oximetry 98 % BMI (Body Mass Index) 28.2 kg/m2 10/06/2009 8:57am Body Temperature 98.6 F Weight 208.00 lb Heart Rate 88 /min BP Systolic 160 mmHg BP Diastolic 78 mmHg 09/09/2009 9:22am Body Temperature 97.7 F Weight 204.00 lb Heart Rate 78 /min BP Systolic 158 mmHg BP Diastolic 78 mmHg 09/03/2009 1:49pm Body Temperature 97.8 F Weight 205.00 lb Heart Rate 90 /min BP Systolic 152 mmHg BP Diastolic 88 mmHg Height 71.5 inches 5'11.50" BMI (Body Mass Index) 28.2 kg/m2 Left Visual Acuity Distance 97 08/12/2009 8:21am Body Temperature 98.5 F Weight 205.00 lb Heart Rate 70 /min BP Systolic 128 mmHg BP Diastolic 76 mmHg 02/26/2009 2:24pm Body Temperature 98.6 F Weight 229.00 lb Heart Rate 92 /min BP Systolic 152 mmHg BP Diastolic 80 mmHg O2 % BldC Oximetry 95 % 01/20/2009 10:54am Body Temperature 98.3 F Weight 234.00 lb Heart Rate 85 /min BP Systolic 158 mmHg BP Diastolic 72 mmHg Height 71.5 inches 5'11.50" O2 % BldC Oximetry 95 % BMI (Body Mass Index) 32.2 kg/m2 07/23/2008 2:46pm Body Temperature 98.0 F Weight 220.00 lb Heart Rate 91 /min BP Systolic 118 mmHg BP Diastolic 69 mmHg Height 71.5 inches 5'11.50" BMI (Body Mass Index) 30.3 kg/m2 01/30/2008 1:42pm Body Temperature 97.7 F Weight 229.00 lb Heart Rate 107 /min BP Systolic 135 mmHg BP Diastolic 77 mmHg Height 71.5 inches 5'11.50" BMI (Body Mass Index) 31.5 kg/m2 01/10/2008 11:29am Weight 233.00 lb Heart Rate 106 /min BP Systolic 153 mmHg BP Diastolic 96 mmHg Height 71.5 inches 5'11.50" BMI (Body Mass Index) 32.0 kg/m2 12/26/2007 1:42pm Body Temperature 97.6 F Weight 238.00 lb Heart Rate 94 /min BP Systolic 144 mmHg BP Diastolic 85 mmHg Height 71.5 inches 5'11.50" BMI (Body Mass Index) 32.7 kg/m2 12/21/2007 1:48pm Body Temperature 97.0 F Weight 224.00 lb Heart Rate 79 /min BP Systolic 138 mmHg BP Diastolic 81 mmHg Height 71.5 inches 5'11.50" BMI (Body Mass Index) 30.8 kg/m2 10/30/2007 1:40pm Body Temperature 98.2 F Weight 230.00 lb Heart Rate 101 /min BP Systolic 139 mmHg BP Diastolic 83 mmHg Height 71.5 inches 5'11.50" BMI (Body Mass Index) 31.6 kg/m2 08/21/2007 10:24am Body Temperature 97.0 F Weight 226.00 lb Heart Rate 93 /min BP Systolic 144 mmHg BP Diastolic 90 mmHg Height 71.5 inches 5'11.50" BMI (Body Mass Index) 31.1 kg/m2 07/13/2007 1:17pm Weight 228.00 lb Heart Rate 100 /min BP Systolic 142 mmHg BP Diastolic 87 mmHg Height 71.5 inches 5'11.50" BMI (Body Mass Index) 31.4 kg/m2 Urine Dipstick - Blood NEGATIVE Urine Dipstick - Protein NEGATIVE Urine Dipstick - Glucose NEGATIVE 03/07/2007 11:15am Body Temperature 98.1 F Weight 228.00 lb Heart Rate 100 /min BP Systolic 136 mmHg BP Diastolic 86 mmHg 02/03/2007 8:18am Weight 230.00 lb Heart Rate 84 /min BP Systolic 134 mmHg BP Diastolic 80 mmHg 01/17/2007 1:49pm Body Temperature 97.7 F Weight 232.00 lb Heart Rate 92 /min BP Systolic 142 mmHg BP Diastolic 74 mmHg 01/05/2007 3:32pm Body Temperature 98.2 F Weight 235.00 lb Heart Rate 88 /min BP Systolic 150 mmHg BP Diastolic 86 mmHg 12/23/2006 9:54am Weight 233.00 lb Heart Rate 80 /min BP Systolic 160 mmHg BP Diastolic 84 mmHg 09/27/2006 2:08pm Body Temperature 98.1 F Weight 230.00 lb Heart Rate 88 /min BP Systolic 128 mmHg BP Diastolic 74 mmHg 09/19/2006 10:08am Body Temperature 97.9 F Weight 227.00 lb Heart Rate 80 /min BP Systolic 140 mmHg BP Diastolic 80 mmHg 09/09/2006 8:47am Weight 229.00 lb Heart Rate 80 /min BP Systolic 140 mmHg BP Diastolic 78 mmHg 08/18/2006 2:16pm Body Temperature 97.3 F Weight 226.00 lb Heart Rate 80 /min BP Systolic 130 mmHg BP Diastolic 70 mmHg 07/28/2006 3:46pm Body Temperature 97.8 F Weight 228.00 lb Heart Rate 76 /min BP Systolic 130 mmHg BP Diastolic 80 mmHg 04/12/2006 3:56pm Weight 226.00 lb Heart Rate 74 /min BP Systolic 130 mmHg BP Diastolic 80 mmHg 10/05/2005 3:52pm Body Temperature 98.0 F Weight 226.00 lb Heart Rate 88 /min BP Systolic 130 mmHg BP Diastolic 78 mmHg 09/21/2005 2:57pm Body Temperature 99.2 F Weight 224.00 lb Heart Rate 88 /min BP Systolic 122 mmHg BP Diastolic 70 mmHg 01/26/2005 3:35pm Body Temperature 97.8 F Weight 226.00 lb Heart Rate 92 /min BP Systolic 122 mmHg BP Diastolic 74 mmHg Results Test Date Facility Test Result H/L Range Note Throat PO Culture 08/18/2018 [facility] Th[facility]at PO Culture SEE NOTE 1 -RL Laboratory test 12/30/2017 [facility] PSA 0.490 ng/mL 0.000-4.000 2 finding Lipid 12/30/2017 [facility] Cholesterol 179 mg/dL 50-199 Triglycerides 245 mg/dL High 30-200 HDL 33 mg/dL 29-71 3 Chol/ HDL Ratio 5.4 ratio 4.0-6.7 VLDL 49 mg/dL High 2-29 LDL (Calc) 97 mg/dL 20-99 4 Comprehensive Met Panel-[facility] 12/30/2017 [facility] Sodium 139 mmol/L 135- 146 5 Potassium 4.7 mmol/L 3.5-5.2 Chloride# 103 mmol/L 97-110 6 Carbon Dioxide 26 mmol/L 24-34 Glucose 104 mg/dL 70-105 BUN 22 mg/dL 6-26 Creatinine 1.6 mg/dL High 0.5-1.4 Calcium 9.3 mg/dL 8.5-10.2 Total Protein 6.5 g/dL 6.0-8.0 Albumin 4.5 g/dL 3.6-4.9 Globulin 2.0 g/dL 2.0-3.5 A/G Ratio 2.3 Ratio High 1.0-2.2 Total Bilirubin 0.6 mg/dL 0.1-1.3 Alkaline Phosphatase 115 U/L 24-140 Alt 35 U/L 3-42 Ast 26 U/L 8-42 Cat Egfr 51 Low >60 7 Non Cat Egfr 43 Low >60 8 Anion Gap 10 mmol/L 5-15 9 Lipid 07/18/2017 [facility] Cholesterol 159 mg/dL 50-199 10 Triglycerides 237 mg/dL High 30-200 HDL 32 mg/dL 29-71 11 Chol/ HDL Ratio 4.9 ratio 4.0-6.7 VLDL 47 mg/dL High 2-29 LDL (Calc) 79 mg/dL 20-99 12 Laboratory test 07/18/2017 [facility] Hepatitis C 0.10 NONREACTIVE Nonreactive 13 finding Virus Antibody S/CORatio([facility] Laboratory test 01/05/2016 [facility] Throat PO SEE NOTE 14 finding Culture Laboratory test 09/09/2015 [facility] Uric Acid 5.2 mg/dL 2.6-8.4 15 finding CRP (C-Reactive) 0.28 mg/dL 0.00-0.75 Comprehensive Metabolic (CMP) 05/30/2015 [facility] Sodium 138 mmol/L 134- 142 16 Potassium 5.5 No visible h <SEE NOTE> mmol/L High 3.5-5.2 17 Chloride 102 mmol/L 97-109 Carbon Dioxide 33 mmol/L 24-34 Glucose 122 mg/dL High 70-105 BUN 25 mg/dL 6-26 Creatinine 1.1 mg/dL 0.5-1.4 Calcium 9.6 mg/dL 8.5-10.2 Total Protein 6.4 g/dL 6.0-8.0 Albumin 4.3 g/dL 3.6-4.9 Globulin 2.1 g/dL 2.0-3.5 A/G Ratio 2.0 Ratio 1.0-2.2 Total Bilirubin 0.6 mg/dL 0.1-1.3 Alkaline Phosphatase 97 U/L 24-140 Alt 23 U/L 3-42 Ast 22 U/L 8-42 Anion Gap 9 mmol/L 6-14 Cat Egfr >60 >60 18 Non Cat Egfr >60 >60 19 Laboratory test finding 12/26/2014 [facility] Hemoglobin A1c 5.6 % 4.1-5.9 20 TSH 2.53 uIU/mL 0.34-5.60 Comprehensive Metabolic (CMP) 12/26/2014 [facility] Sodium 138 mmol/L 134- 142 Potassium 4.5 mmol/L 3.5-5.2 Chloride 102 mmol/L 97-109 Carbon Dioxide 30 mmol/L 24-34 Glucose 93 mg/dL 70-105 BUN 20 mg/dL 6-26 Creatinine 1.0 mg/dL 0.5-1.4 Calcium 9.6 mg/dL 8.5-10.2 Total Protein 6.6 g/dL 6.0-8.0 Albumin 4.5 g/dL 3.6-4.9 Globulin 2.1 g/dL 2.0-3.5 A/G Ratio 2.1 Ratio 1.0-2.2 Total Bilirubin 0.5 mg/dL 0.1-1.3 Alkaline Phosphatase 95 U/L 24-140 Alt 32 U/L 3-42 Ast 21 U/L 8-42 Anion Gap 11 mmol/L 6-14 Cat Egfr >60 >60 21 Non Cat Egfr >60 >60 22 CBC With Auto Diff 12/26/2014 [facility] WBC 6.5 K/uL 4.1-11.0 RBC 5.14 M/uL 4.60-6.10 Hemoglobin 14.8 gm/dL 13.5-18.0 Hematocrit 44.6 % 41.0-53.0 MCV 86.6 fL 80.0-97.0 MCH 28.8 pg 27.0-32.0 MCHC 33.3 g/dL 32.0-36.0 RDW 13.9 % 11.5-14.5 PLT Count 183 K/ul 140-400 Neutrophil 43.9 % 35.0-75.0 Lymphocyte 41.0 % 16.0-52.0 Monocyte 10.6 % High 2.0-10.0 Eosinophil 3.7 % 0.0-5.0 Basophil 0.8 % 0.0-4.0 Abs Neutrophils 2.9 K/uL 2.1-8.0 Abs Lymphocytes 2.7 K/uL 0.8-5.5 Abmon 0.7 K/uL 0.1-1.0 Abs Eosinophils 0.2 K/uL 0.0-0.5 Abs Basophils 0.1 K/uL 0.0-0.3 Testosterone,Free & 05/16/2013 [facility] Testosterone Total 382 ng/dL 285- 650 Total-Male Adult Male Sex Hormone Binding Globulin 25.4 nmol/L 13.3-89.5 Testosterone Free Adult Male 89 pg/mL 50-247 Testosterone Percent Free 2.3 % 1.8-3.2 Laboratory test finding 05/16/2013 [facility] Hemoglobin A1c 5.6 % 4.1-5.9 Basic (BMP) 03/14/2013 [facility] Sodium 138 mmol/L 134-142 Potassium 4.3 mmol/L 3.5-5.2 Chloride 105 mmol/L 97-109 Carbon Dioxide 27 mmol/L 24-34 Glucose 127 mg/dL High 70-105 BUN 22 mg/dL 6-26 Creatinine 0.9 mg/dL 0.5-1.4 Calcium 9.1 mg/dL 8.5-10.2 Anion Gap 10 mmol/L 6-14 Non Cat Egfr >60 >60 23 Cat Egfr >60 >60 24 Laboratory test finding 02/08/2013 [facility] TSH 1.02 uIU/mL 0.34-5.60 CBC With Auto Diff 02/08/2013 [facility] WBC 5.3 K/uL 4.1-11.0 RBC 4.74 M/uL 4.60-6.10 Hemoglobin 14.8 gm/dL 13.5-18.0 Hematocrit 42.8 % 41.0-53.0 MCV 90.3 fL 80.0-97.0 MCH 31.1 pg 27.0-32.0 MCHC 34.5 g/dL 32.0-36.0 RDW 13.5 % 11.5-14.5 PLT Count 188 K/ul 140-400 Neutrophil 49.7 % 35.0-75.0 Lymphocyte 30.5 % 16.0-52.0 Monocyte 10.5 % High 2.0-10.0 Eosinophil 8.3 % High 0.0-5.0 Basophil 1.0 % 0.0-4.0 Abs Neutrophils 2.6 K/uL 2.1-8.0 Abs Lymphocytes 1.6 K/uL 0.8-5.5 Abs Monocytes 0.6 K/uL 0.1-1.0 Abs Eosinophils 0.4 K/uL 0.0-0.5 Abs Basophils 0.1 K/uL 0.0-0.3 Laboratory test finding 02/08/2013 [facility] Vitamin B12 287 pg/mL 180- 914 Folate >25.6 ng/ml High 5.9-24.8 Vit D,25 Hydroxy 35 ng/mL 31-100 Comprehensive Metabolic (CMP) 02/08/2013 [facility] Sodium 140 mmol/L 134- 142 Potassium 4.3 mmol/L 3.5-5.2 Chloride 104 mmol/L 97-109 Carbon Dioxide 29 mmol/L 24-34 Glucose 110 mg/dL High 70-105 BUN 21 mg/dL 6-26 Creatinine 0.9 mg/dL 0.5-1.4 Calcium 9.3 mg/dL 8.5-10.2 Total Protein 6.5 g/dL 6.0-8.0 Albumin 4.5 g/dL 3.6-4.9 Globulin 2.0 g/dL 2.0-3.5 A/G Ratio 2.3 Ratio High 1.0-2.2 Total Bilirubin 0.6 mg/dL 0.1-1.3 Alkaline Phosphatase 95 U/L 24-140 Alt 26 U/L 3-42 Ast 20 U/L 8-42 Anion Gap 11 mmol/L 6-14 Cat Egfr >60 >60 25 Non Cat Egfr >60 >60 26 Lipid 02/08/2013 [facility] Cholesterol 152 mg/dL 50-199 Triglycerides 141 mg/dL 30-200 HDL 40 mg/dL 29-71 27 Chol/ HDL Ratio 3.8 ratio Low 4.0-6.7 VLDL 28 mg/dL 2-29 LDL (Calc) 84 mg/dL 20-129 28 Testosterone,Free & 02/08/2013 [facility] Testosterone Total 190 ng/dL Low 285-650 Total-Male Adult Male Sex Hormone Binding Globulin 23.2 nmol/L 13.3-89.5 Testosterone Free Adult Male 43 pg/mL Low 50-247 Testosterone Percent Free 2.2 % 1.8-3.2 CBC With Auto Diff 01/07/2012 [facility] WBC 7.1 K/uL 4.1-11.0 29 RBC 5.18 M/uL 4.60-6.10 Hemoglobin 15.6 gm/dL 13.5-18.0 Hematocrit 44.9 % 41.0-53.0 MCV 86.5 fL 80.0-97.0 MCH 30.1 pg 27.0-32.0 MCHC 34.7 g/dL 32.0-36.0 RDW 13.5 % 11.5-14.5 PLT Count 204 K/ul 140-400 Neutrophil 43.1 % 35.0-75.0 Lymphocyte 39.2 % 16.0-52.0 Monocyte 12.3 % High 2.0-10.0 Eosinophil 4.6 % 0.0-5.0 Basophil 0.8 % 0.0-4.0 Abs Neutrophils 3.0 K/uL 2.1-8.0 Abs Lymphocytes 2.8 K/uL 0.8-5.5 Abs Monocytes 0.9 K/uL 0.1-1.0 Abs Eosinophils 0.3 K/uL 0.0-0.5 Abs Basophils 0.1 K/uL 0.0-0.3 Comprehensive Metabolic (CMP) 01/07/2012 [facility] Sodium 140 mmol/L 134- 142 Potassium 4.8 mmol/L 3.5-5.2 Chloride 100 mmol/L 97-109 Carbon Dioxide 34 mmol/L 24-34 Glucose 106 mg/dL High 70-105 BUN 23 mg/dL 6-26 Creatinine 0.9 mg/dL 0.5-1.4 Calcium 9.6 mg/dL 8.5-10.2 BUN/CR 27 ratio High 12-20 Total Protein 6.7 g/dL 6.0-8.0 Albumin 4.6 g/dL 3.6-4.9 Globulin 2.1 g/dL 2.0-3.5 A/G Ratio 2.2 Ratio 1.0-2.2 Total Bilirubin 0.5 mg/dL 0.1-1.3 Alkaline Phosphatase 89 U/L 24-140 Alt 24 U/L 3-42 Ast 16 U/L 8-42 Anion Gap 11 mmol/L 6-14 Cat Egfr >60 >60 30 Non Cat Egfr >60 >60 31 Laboratory test 09/03/2009 [facility] HSV Culture SPECIMEN 32 finding [phone] DESCRIP <SEE NOTE> Laboratory test 09/03/2009 [facility] (Do not Use) Herpes Viral (SEE NOTE ) 33 finding [facility] Culture ([place] [address] Iraz)-PA [phone] Laboratory test 01/24/2009 [facility] (Do not Use) Hemoglobin A1c 5.8 % 4.1-6 34 finding [facility] .[address] [place] [address] [phone] Lipid Panel 01/20/2009 [facility] (Do not Use) Cholesterol 196 mg/dL 50 -19 35 [facility] [address] [place] [address] [phone] Triglycerides 368 mg/dL High 10-150 36 HDL 32 mg/dL 29-71 37 Chol/HDL Ratio 6.1 Ratio 4.0-6.7 38 VLDL 74 mg/dL High 2-29 LDL (Calc) Triglyceride roosevelt <SEE NOTE> mg/dL 39 CBC With Auto Diff 01/20/2009 [facility] (Do not Use) WBC 6.3 K/ul 4.0- 10.9 [facility] [place] [address] [phone] RBC 5.26 M/ul 4.70-6.10 Hemoglobin 16.0 GM/dl 13.5-18.0 Hematocrit 46.2 % 42.0-52.0 MCV 87.9 FL 80.0-97.0 MCH 30.5 pg 27.0-31.0 MCHC 34.7 g/dL 32.0-36.0 RDW 13.2 % 11.5-14.5 Platelet Count 235 K/ul 140-440 Neutrophils 47.8 % Low 50-70 Lymphocytes 34.8 % 20-44 Monocytes 11.9 % High 2-9 Eosinophil 4.6 % High 0-4 Basophil 0.9 % 0-2 Absolute Neutrophils 3.0 K/ul 2.05-7.63 Absolute Lymphocytes 2.2 K/ul 0.8-4.8 Absolute Monocytes 0.7 K/ul 0.1-1.0 Absolute Eosinophils 0.3 K/ul 0.1-0.5 Absolute Basophils 0.1 K/ul 0.0-0.3 Hematology Comment (Comm2) N/A Laboratory test 01/20/2009 [facility] (Do not Use) PSA 0.70 ng/ml 0.00- 4.00 40 finding [facility] [place] [address] [phone] Vitamin D, 25 Hydroxy 21 ng/mL Low 31-100 Direct LDL 129 mg/dL 20-129 [facility] 01/20/2009 [facility] (Do not Use) Sodium 142 mmol/L 135-144 [facility] [place] [address] [phone] Potassium 4.4 mmol/L 3.6-5.2 41 Chloride 105 mmol/L 97-110 Carbon Dioxide 27 mmol/L 23-33 Glucose 120 mg/dL High 70-105 BUN 13 mg/dL 6-22 Creatinine 0.9 mg/dL 0.5-1.3 BUN/CR 14 Ratio 12.0-20.0 Calcium 9.9 mg/dL 8.6-10.2 42 Total Protein 6.4 g/dL 5.8-7.8 Albumin 4.3 g/dL 3.5-4.8 Globulin 2.1 g/dL 2.0-3.5 A/G Ratio 2.1 Ratio 1.0-2.2 Total Bilirubin 0.6 mg/dL 0.3-1.2 Alkaline Phosphatase 96 U/L 24-140 Alt 44 U/L 4-45 Ast 30 U/L 12-40 Anion Gap 14 mmol/L 8-16 GFR Calculation > 60 mL/min 60-175 43 GFR For > 60 mL/min 60-175 44 [facility] 07/13/2007 [facility] (Do not Use) Sodium 138 mmol/L 135-144 [facility] [place] [address] [phone] Potassium 3.8 mmol/L 3.6-5.2 Chloride 102 mmol/L 97-110 Carbon Dioxide 28 mmol/L 23-33 Glucose 113 mg/dL High 70-105 BUN 15 mg/dL 6-22 Creatinine 1.0 mg/dL 0.5-1.3 BUN/CR 15 Ratio 12.0-20.0 Calcium 9.2 mg/dL 8.6-10.2 Total Protein 6.5 g/dL 5.8-7.8 Albumin 4.2 g/dL 3.5-4.8 Globulin 2.3 g/dL 2.0-3.5 A/G Ratio 1.8 Ratio 1.0-2.2 Total Bilirubin 0.6 mg/dL 0.3-1.2 Alkaline Phosphatase 97 U/L 24-140 Alt 31 U/L 4-45 Ast 29 U/L 12-40 Anion Gap 12 mmol/L 8-16 GFR Calculation > 60 mL/min 45 GFR For > 60 mL/min 46 CBC With Auto Diff 07/13/2007 [facility] (Do not Use) WBC 8.9 K/ul 4.0- 10.9 [facility] [place] [address] [phone] RBC 4.62 M/ul Low 4.70-6.10 Hemoglobin 14.5 GM/dl 13.5-18.0 Hematocrit 42.2 % 42.0-52.0 MCV 91.3 FL 80.0-97.0 MCH 31.3 pg High 27.0-31.0 MCHC 34.3 g/dL 32.0-36.0 RDW 12.1 % 11.5-14.5 Platelet Count 311 K/ul 140-440 Neutrophils N/A % 50-70 Lymphocytes N/A % 20-44 Monocytes N/A % 2-9 Eosinophil N/A % 0-4 Basophil N/A % 0-2 Absolute Neutrophils N/A K/ul 2.05-7.63 Absolute Lymphocytes N/A K/ul 0.8-4.8 Absolute Monocytes N/A K/ul 0.1-1.0 Absolute Eosinophils N/A K/ul 0.1-0.5 Absolute Basophils N/A K/ul 0.1-0.3 Lipid Panel 07/13/2007 [facility] (Do not Use) Cholesterol 192 mg/dL 50 -199 [place] [address] [phone] Triglycerides 276 mg/dL High 10-150 HDL 36 mg/dL Abnormal (>40) Chol/HDL Ratio 5.3 Ratio VLDL 55 mg/dL LDL (Calc) 101 mg/dL 20-129 Laboratory test 07/13/2007 [facility] (Do not Use) PSA 0.64 ng/ml 0.00- 4.00 47 finding [facility] [place] [address] [phone] TSH 0.95 uIU/ml 0.34-5.60 Diff For Manual CBC 07/13/2007 [facility] (Do not Use) Blast N/A % [place] [address] [phone] Promyelocyte N/A % Myelocyte N/A % Metamyelocyte N/A % Band 2 % 2-6 Neutrophil 65 % 50-70 Lymphocyte 25 % 20-44 Monocyte 6 % 2-9 Eosinophil 2 % 0-4 Basophil N/A % 0-2 Platelet Estimate NORMAL RBC Morphology NORMAL Anisocytosis N/A Poikilocytosis N/A Macrocytosis N/A Microcytosis N/A Hypochromasia N/A Atypical Lymphs N/A % Hyperchromia N/A Polychromasia N/A Abnormal Cells N/A Laboratory test 09/21/2005 [facility] (Do not Use) PSA 1.33 ng/ml 0.00- 4.00 48, 49 finding [facility] [place] [address] [phone] SPECIMEN DESCRIPTION THROAT SWAB CULTURE RESULTS NORMAL THROAT JENNIFER NEGATIVE FOR BETA HEMOLYTIC STREPTOCOCCI GROUPS A,C OR G. REPORT STATUS FINAL 08/20/2018 Unless otherwise specified, testing performed by [facility] [address] [place] [id number] 2 Beginning 12/19/06 PSA values assayed at [facility] uses chemiluminescence methodology manufactured by [employer] for use on the DXI analyzer. Values obtained with different assay methods or kits can not be used interchangeably. Serum PSA measurement is not an absolute test for malignancy. The PSA value should be used in conjunction with information available from clinical evaluation and other diagnostic procedures. 3 Per NCEP ATP III Guidelines: Results lower than 40 mg/dL are suggestive of increased risk for coronary artery disease. Results > or=to 60 mg/dL are considered a negative risk factor. 4 Per NCEP ATP III Guidelines: Normal Population <130 Patients with medical conditions: CHD/DM Optimal: <100 Borderline high: 130-159 High: 160-189 Very high: >189 5 Updated reference range on new analyzer 6 Updated reference range on new analyzer 7 Concerning GFR Guidelines for Americans: Normal function or mild renal disease, if clinically at risk: >/=60 mL/min Moderately decreased: 30-59 Severely decreased: 15-29 Renal failure: <15 8 Concerning GFR Guidelines: Normal function or mild renal disease, if clinically at risk: >/=60 mL/min Moderately decreased: 30-59 Severely decreased: 15-29 Renal failure: <15 Glomerular Filtration Rate (GFR) is estimated based on the MDRD equation, which assumes a steady state for creatinine as recommended by the National Kidney Disease Education Program in conjunction with the National Institutes of Health and the National Kidney Foundation. Clinical conditions in which it may be necessary to measure GFR by using clearance methods include extremes of age and body size, severe malnutrition or obesity, diseases of skeletal muscle, paraplegia or quadriplegia, vegetarian diet, rapidly changing kidney function, and calculation of the dose of potentially toxic drugs that are excreted by the kidneys. 9 Updated Reference Range -2017 10 This sample is drawn by: NIGEL ZAFAR 11 Per NCEP ATP III Guidelines: Results lower than 40 mg/dL are suggestive of increased risk for coronary artery disease. Results > or=to 60 mg/dL are considered a negative risk factor. 12 Per NCEP ATP III Guidelines: Normal Population <130 Patients with medical conditions: CHD/DM Optimal: <100 Borderline high: 130-159 High: 160-189 Very high: >189 13 0.10 NONREACTIVE S/CO Ratio >/=1.0 is REACTIVE. S/CO <5.0 is Low Reactive. S/CO >/= 5.0 is High Reactive. Effective Jun 17, 2017 all anti-HCV reactive samples are sent for quantitative PCR confirmation. 14 SPECIMEN DESCRIPTION THROAT SWAB CULTURE RESULTS NORMAL THROAT JENNIFER NO BETA HEMOLYTIC STREPTOCOCCI ISOLATED REPORT STATUS FINAL 01/07/2016 Unless otherwise specified, testing performed by [facility] [address] [place] [id number] 15 This sample is drawn by:[email or web address]/vy 16 This sample is drawn by:MARLA/VY 17 5.5 No visible hemolysis. 18 Concerning GFR Guidelines for Americans: Normal function or mild renal disease, if clinically at risk: >/=60 mL/min Moderately decreased: 30-59 Severely decreased: 15-29 Renal failure: <15 19 Concerning GFR Guidelines: Normal function or mild renal disease, if clinically at risk: >/=60 mL/min Moderately decreased: 30-59 Severely decreased: 15-29 Renal failure: <15 Glomerular Filtration Rate (GFR) is estimated based on the MDRD equation, which assumes a steady state for creatinine as recommended by the National Kidney Disease Education Program in conjunction with the National Institutes of Health and the National Kidney Foundation. Clinical conditions in which it may be necessary to measure GFR by using clearance methods include extremes of age and body size, severe malnutrition or obesity, diseases of skeletal muscle, paraplegia or quadriplegia, vegetarian diet, rapidly changing kidney function, and calculation of the dose of potentially toxic drugs that are excreted by the kidneys. 20 This sample is drawn by:TISH/TYESHA 21 Concerning GFR Guidelines for Americans: Normal function or mild renal disease, if clinically at risk: >/=60 mL/min Moderately decreased: 30-59 Severely decreased: 15-29 Renal failure: <15 22 Concerning GFR Guidelines: Normal function or mild renal disease, if clinically at risk: >/=60 mL/min Moderately decreased: 30-59 Severely decreased: 15-29 Renal failure: <15 Glomerular Filtration Rate (GFR) is estimated based on the MDRD equation, which assumes a steady state for creatinine as recommended by the National Kidney Disease Education Program in conjunction with the National Institutes of Health and the National Kidney Foundation. Clinical conditions in which it may be necessary to measure GFR by using clearance methods include extremes of age and body size, severe malnutrition or obesity, diseases of skeletal muscle, paraplegia or quadriplegia, vegetarian diet, rapidly changing kidney function, and calculation of the dose of potentially toxic drugs that are excreted by the kidneys. 23 Concerning GFR Guidelines: Normal function or mild renal disease, if clinically at risk: >/=60 mL/min Moderately decreased: 30-59 Severely decreased: 15-29 Renal failure: <15 Glomerular Filtration Rate (GFR) is estimated based on the MDRD equation, which assumes a steady state for creatinine as recommended by the National Kidney Disease Education Program in conjunction with the National Institutes of Health and the National Kidney Foundation. Clinical conditions in which it may be necessary to measure GFR by using clearance methods include extremes of age and body size, severe malnutrition or obesity, diseases of skeletal muscle, paraplegia or quadriplegia, vegetarian diet, rapidly changing kidney function, and calculation of the dose of potentially toxic drugs that are excreted by the kidneys. 24 Concerning GFR Guidelines for Americans: Normal function or mild renal disease, if clinically at risk: >/=60 mL/min Moderately decreased: 30-59 Severely decreased: 15-29 Renal failure: <15 25 Concerning GFR Guidelines for Americans: Normal function or mild renal disease, if clinically at risk: >/=60 mL/min Moderately decreased: 30-59 Severely decreased: 15-29 Renal failure: <15 26 Concerning GFR Guidelines: Normal function or mild renal disease, if clinically at risk: >/=60 mL/min Moderately decreased: 30-59 Severely decreased: 15-29 Renal failure: <15 Glomerular Filtration Rate (GFR) is estimated based on the MDRD equation, which assumes a steady state for creatinine as recommended by the National Kidney Disease Education Program in conjunction with the National Institutes of Health and the National Kidney Foundation. Clinical conditions in which it may be necessary to measure GFR by using clearance methods include extremes of age and body size, severe malnutrition or obesity, diseases of skeletal muscle, paraplegia or quadriplegia, vegetarian diet, rapidly changing kidney function, and calculation of the dose of potentially toxic drugs that are excreted by the kidneys. 27 Per NCEP ATP III Guidelines: Results lower than 40 mg/dL are suggestive of increased risk for coronary artery disease. Results > or=to 60 mg/dL are considered a negative risk factor. 28 Per NCEP ATP III Guidelines: Optimal: <100 Near optimal: 100-129 Borderline high: 130-159 High: 160-189 Very high: >189 29 This sample is drawn by:MARLA/VY 30 Concerning GFR Guidelines for Americans: Normal function or mild renal disease, if clinically at risk: >/=60 mL/min Moderately decreased: 30-59 Severely decreased: 15-29 Renal failure: <15 31 Concerning GFR Guidelines: Normal function or mild renal disease, if clinically at risk: >/=60 mL/min Moderately decreased: 30-59 Severely decreased: 15-29 Renal failure: <15 Glomerular Filtration Rate (GFR) is estimated based on the MDRD equation, which assumes a steady state for creatinine as recommended by the National Kidney Disease Education Program in conjunction with the National Institutes of Health and the National Kidney Foundation. Clinical conditions in which it may be necessary to measure GFR by using clearance methods include extremes of age and body size, severe malnutrition or obesity, diseases of skeletal muscle, paraplegia or quadriplegia, vegetarian diet, rapidly changing kidney function, and calculation of the dose of potentially toxic drugs that are excreted by the kidneys. 32 SPECIMEN DESCRIPTION LEFT GROIN SPECIAL REQUESTS NONE CULTURE RESULTS HERPES SIMPLEX VIRUS TYPE 2 ISOLATED, IDENTIFIE D BY IMMUNOFLUORESCENCE. CULTURE [place]IGINALLY [place] ON 09/05/09 [place] [id number] REPORT STATUS FINAL 04/30/2010 33 SPECIMEN DESCRIPTION LEFT GROIN AREA SPECIAL REQUESTS NONE Unless otherwise specified, testing performed by [facility] [address] [place] [id number] 34 LAB DRAW [place] 35 FASTING This sample is drawn by:TYESHA LUCIO 36 SPECIMEN SLIGHTLY LIPEMIC 37 PER NCEP ATP III GUIDELINES: RESULTS LOWER THAN 40 MG/DL ARE SUGGESTIVE OF INCREASED RISK FOR CORONARY ARTERY DISEASE. RESULTS > OR=TO 60 MG/DL ARE CONSIDERED A NEGATIVE RISK FACTOR. 38 INTERPRETATION OF CHOL-HDL RATIO CHD RISK FEMALE MALE VERY HIGH >8.3 >14.3 HIGH 5.6 - 8.3 6.7 - 14.3 AVERAGE 3.7 - 5.6 4.0 - 6.7 BELOW AVERAGE 2.5 - 3.7 2.7 - 4.0 PROTECTED <2.5 <2.7 39 Triglyceride value>300mg/dl, see Direct LDL result PER NCEP ATP III GUIDELINES: OPTIMAL: <100 NEAR OPTIMAL: 100 - 129 BORDERLINE HIGH: 130 - 159 HIGH: 160 - 189 VERY HIGH: >189 40 BEGINNING 12/19/06, PSA VALUES ASSAYED AT [facility] USES AN EIA METHODOLOGY MANUFACTURED BY [employer] FOR USE ON THE DXI ANALYZER. VALUES OBTAINED WITH DIFFERENT ASSAY METHODS OR KITS CAN NOT BE USED INTERCHANGEABLY. SERUM PSA MEASUREMENT IS NOT AN ABSOLUTE TEST FOR MALIGNANCY, THE PSA VALUE SHOULD BE USED IN CONJUNCTION WITH INFORMATION AVAILABLE FROM CLINICAL EVALUATION AND OTHER DIAGNOSTIC PROCEDURES. 41 The difference between the most recent result of 3.8 and the current result of 4.4 exceeds the absolute delta value of 0.5 as defined for this test. 42 The difference between the most recent result of 9.2 and the current result of 9.9 exceeds the absolute delta value of 0.3 as defined for this test. 43 Concerning GFR GUIDELINES: Normal Function or Mild Renal Disease, if clinically at risk: >/=60mL/min Moderately decreased: 30-59 Severely decreased: 15-29 Renal Failure: <15 Glomerular Filtration Rate (GFR) is estimated based on the MDRD equation, which assumes a steady state for creatinine as recommended by the National Kidney Disease Education Program in conjunction with the National Institutes of Health and the National Kidney Foundation. Clinical conditions in which it may be necessary to measure GFR by using clearance methods include extremes of age and body size, severe malnutrition or obesity, diseases of skeletal muscle, paraplegia or quadriplegia, vegetarian diet, rapidly changing kidney function, and calculation of the dose of potentially toxic drugs that are excreted by the kidneys. 44 Concerning GFR GUIDELINES: Normal Function or Mild Renal Disease, if clinically at risk: >/=60mL/min Moderately decreased: 30-59 Severely decreased: 15-29 Renal Failure: <15 45 Concerning GFR GUIDELINES: Normal Function or Mild Renal Disease, if clinically at risk: >/=60mL/min Moderately decreased: 30-59 Severely decreased: 15-29 Renal Failure: <15 Glomerular Filtration Rate (GFR) is estimated based on the MDRD equation, which assumes a steady state for creatinine as recommended by the National Kidney Disease Education Program in conjunction with the National Institutes of Health and the National Kidney Foundation. Clinical conditions in which it may be necessary to measure GFR by using clearance methods include extremes of age and body size, severe malnutrition or obesity, diseases of skeletal muscle, paraplegia or quadriplegia, vegetarian diet, rapidly changing kidney function, and calculation of the dose of potentially toxic drugs that are excreted by the kidneys. 46 Concerning GFR GUIDELINES: Normal Function or Mild Renal Disease, if clinically at risk: >/=60mL/min Moderately decreased: 30-59 Severely decreased: 15-29 Renal Failure: <15 47 BEGINNING 12/19/06, PSA VALUES ASSAYED AT [facility] USES AN EIA METHODOLOGY MANUFACTURED BY [employer] FOR USE ON THE DXI ANALYZER. VALUES OBTAINED WITH DIFFERENT ASSAY METHODS OR KITS CAN NOT BE USED INTERCHANGEABLY. SERUM PSA MEASUREMENT IS NOT AN ABSOLUTE TEST FOR MALIGNANCY, THE PSA VALUE SHOULD BE USED IN CONJUNCTION WITH INFORMATION AVAILABLE FROM CLINICAL EVALUATION AND OTHER DIAGNOSTIC PROCEDURES. 48 SERG 645 49 PSA VALUES ASSAYED AT [facility] USES AN EIA METHODOLOGY MANUFACTURED BY [employer], [employer] FOR USE ON THE NEXIA ANALYZER. VALUES OBTAINED WITH DIFFERENT ASSAY METHODS OR KITS CAN NOT BE USED INT ERCHANGEABLY. SERUM PSA MEASUREMENT IS NOT AN ABSOLUTE TEST FOR MALIGNANCY, THE PSA VALUE SHOULD BE USED IN CONJUNCTION WITH INFORMATION AVAILABLE FROM CLINICAL EVALUATION AND OTHER DIAGNOSTIC PROCEDURES. Procedures Date Code Description Status 08/04/2018 61245 Admin Of Inj (Therapeutic Phrophylactic Or Diagnostic Completed Subq Inj 08/16/2017 [id number] Colonoscopy Completed 02/25/2016 35968 Measure Blood Oxygen Level Single Determination Completed 01/05/2016 31766 Measure Blood Oxygen Level Single Determination Completed 12/03/2015 52790 Measure Blood Oxygen Level Single Determination Completed 08/23/2012 14169 Electrocardiogram Complete Completed 01/07/2012 71131 Electrocardiogram Complete Completed 12/23/2011 01842 Electrocardiogram Complete Completed 09/14/2011 30704 Measure Blood Oxygen Level Single Determination Completed 08/07/2010 31505396 Colonoscopy Completed 07/20/2010 74496 Measure Blood Oxygen Level Single Determination Completed 07/13/2007 03935 Electrocardiogram Complete Completed 11/17/2004 27807 Measure Blood Oxygen Level Single Determination Completed 11/17/2004 13968 Airway Inhalation Treatment Completed Encounters Type Date Location Provider Dx Diagnosis Office Visit 08/29/2018 Mihaela Ferraro R05 Cough 11:45a N.P. Office Visit 08/04/2018 Mihaela Ferraro, K21.9 Gastro-esophageal 9:45a N.P. reflux disease without esophagitis J30.89 Other allergic rhinitis J32.9 Chronic sinusitis, unspecified Z23 Encounter for immunization Z00.00 Encntr for general adult medical exam w/o abnormal findings Office Visit 07/18/2018 9:45a Vicki Ferraro1.9 Gastro-esophageal reflux Mihaela, N.P. disease without esophagitis J01.00 Acute maxillary sinusitis, unspecified Z28.21 Immunization not carried out because of patient refusal Office Visit 02/17/2018 10:00a Mihaela Ferraro, R20.2 Paresthesia of skin N.P. K21.9 Gastro-esophageal reflux disease without esophagitis Office Visit 12/13/2017 1:45p Mihaela Ferraro J30.89 Other allergic N.P. rhinitis Office Visit 11/29/2017 12:30p Mihaela Ferraro, J01.00 Acute maxillary N.P. sinusitis, unspecified Office Visit 07/18/2017 10:15a Mihaela Ferraro, Z13.220 Encounter for N.P. screening for lipoid disorders Z11.59 Encounter for screening for other viral diseases Z00.8 Encounter for other general examination B35.9 Dermatophytosis, unspecified Z23 Encounter for immunization Z72.89 Other problems related to lifestyle Office Visit 01/25/2017 10:00a Mihaela Ferraro Z01.818 Encounter for other N.P. preprocedural examination Office Visit 11/22/2016 2:15p Mihaela Ferraro, J01.00 Acute maxillary N.P. sinusitis, unspecified Office Visit 08/10/2016 3:30p Mihaela Ferraro J30.1 Allergic rhinitis due N.P. to pollen Office Visit 02/25/2016 9:30a Mihaela Ferraro, R05 Cough N.P. J32.9 Chronic sinusitis, unspecified Office Visit 01/05/2016 10:45a Mihaela Ferraro, N.P. R05 Cough J32.9 Chronic sinusitis, unspecified J01.00 Acute maxillary sinusitis, unspecified Office Visit 12/03/2015 8:45a Mihaela Ferraro, J01.00 Acute maxillary N.P. sinusitis, unspecified R05 Cough Office Visit 11/13/2015 9:30a Mihaela Ferraro, Z01.818 Encounter for other N.P. preprocedural examination Office Visit 10/06/2015 9:45a Mihaela Ferraro, H93.11 Tinnitus, RIGHT ear N.P. Office Visit 08/29/2015 8:15a Mihaela Ferraro, M19.90 Unspecified N.P. osteoarthritis, unspecified site Office Visit 07/22/2015 3:15p Mihaela Ferraro, J01.00 Acute maxillary N.P. sinusitis, unspecified M19.91 Primary osteoarthritis, unspecified site Office Visit 05/30/2015 8:45a Mihaela Ferraro, 401.1 Hypertension Benign N.P. 054.79 Herpes Simplex Other 719.46 Pain Joint Lower Leg Office Visit 12/26/2014 8:15a Mihaela Ferraro, 401.1 Hypertension Benign N.P. 780.79 Malaise And Fatigue Other 790.6 Abnormal Blood Chemistry Other Office Visit 07/29/2014 1:45p Mihaela Ferraro, 461.0 Sinusitis Acute N.P. Maxillary V04.81 Need For Prophylactic Vaccination & Inoculation/Influenza Office Visit 07/11/2014 1:45p Mihaela Ferraro, 461.0 Sinusitis Acute N.P. Maxillary Office Visit 04/16/2014 2:45p Mihaela Ferraro, 461.0 Sinusitis Acute N.P. Maxillary Office Visit 02/21/2014 2:30p Mihaela Ferraro, 461.0 Sinusitis Acute N.P. Maxillary Office Visit 01/08/2014 1:45p Mihaela Ferraro, 461.0 Sinusitis Acute N.P. Maxillary Office Visit 11/08/2013 8:15a Mihaela Ferraro, 461.0 Sinusitis Acute N.P. Maxillary 401.1 Hypertension Benign Office Visit 08/23/2013 1:15p Mihaela Ferraro, 461.0 Sinusitis Acute N.P. 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 Hypofunction Other 790.6 Abnormal Blood Chemistry Other Office Visit 04/13/2013 10:00a Mihaela Ferraro, 401.1 Hypertension Benign N.P. 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 Maxillary Office Visit 08/23/2012 2:45p Mihaela Ferraro, 786.50 Pain Chest Unspec N.P. Office Visit 07/18/2012 10:45a Mihaela Ferraro, 562.11 Diverticulitis Colon N.P. W/O Hemorrhage Office Visit 06/15/2012 10:30a Mihaela Ferraro, 461.0 Sinusitis Acute N.P. Maxillary Office Visit 01/07/2012 9:45a Mihaela Ferraro, 723.1 Cervicalgia N.P. V72.84 Examination Preoperative Unspec Office Visit 12/23/2011 8:30a Mihaela Ferraro, 723.1 Cervicalgia N.P. Office Visit 10/26/2011 10:15a Mihaela Ferraro, 600.00 Hypertrophy Prostate N.P. W/O Urinary Obstruction & Other Luts 782.3 Edema 302.72 Psychosexual Dysfunction W/ Inhibited Sexual Excitement Office Visit 09/14/2011 10:45a Mihaela Ferraro, 461.0 Sinusitis Acute N.P. Maxillary 786.2 Cough Office Visit 06/14/2011 10:00a Mihaela Ferraro, 461.0 Sinusitis Acute N.P. Maxillary Office Visit 05/21/2011 11:45a Mihaela Ferraro, 054.79 Herpes Simplex N.P. Other 461.0 Sinusitis Acute Maxillary 995.3 Allergy Unspec Office Visit 04/28/2011 1:00p Mihaela Ferraro, 883.0 Open Wound Finger(S) N.P. W/O Complication Office Visit 01/21/2011 9:00a Mihaela Ferraro, 461.0 Sinusitis Acute N.P. Maxillary 600.00 Hypertrophy Prostate W/O Urinary Obstruction & Other Luts Office Visit 09/21/2010 3:15p Mihaela Ferraro, 461.0 Sinusitis Acute N.P. Maxillary Office Visit 07/20/2010 11:15a Mihaela Ferraro, 461.0 Sinusitis Acute N.P. Maxillary Office Visit 02/24/2010 9:30a Mihaela Ferraro, 461.0 Sinusitis Acute N.P. Maxillary Office Visit 11/25/2009 8:30a Mihaela Ferraro, 054.79 Herpes Simplex N.P. 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 Other 530.11 Esophagitis Reflux Office Visit 09/09/2009 9:30a Mihaela Ferraro, 054.79 Herpes Simplex Other N.P. Office Visit 09/03/2009 1:45p Mihaela Ferraro, 782.9 Skin & Integumentary N.P. Tissue Other Symptoms Office Visit 08/12/2009 8:15a Mihaela Ferraro, 477.0 Rhinitis Allergic Due N.P. To Pollen Office Visit 02/26/2009 2:15p Mihaela Ferraro, 461.0 Sinusitis Acute N.P. Maxillary Office Visit 01/20/2009 11:00a Mihaela Ferraro, 461.0 Sinusitis Acute N.P. Maxillary 381.01 Otitis Media Serous Acute V77.91 Screening For Lipoid Disorders V76.44 Screening For Malig Caleb Prostate Office Visit 07/23/2008 3:00p Mihaela Ferraro, 461.0 Sinusitis Acute N.P. Maxillary Office Visit 01/30/2008 1:45p Mihaela Ferraro, 473.9 Sinusitis Chronic N.P. Unspec 530.81 Esophageal Reflux Office Visit 01/10/2008 11:30a Susan Nguyen, RN MS 462 Pharyngitis Acute PI/[employer] 465.9 URI Upper Respiratory Infections Acute Unspec Sites Office Visit 12/26/2007 1:30p Mihaela Ferraro, 461.0 Sinusitis Acute N.P. Maxillary Office Visit 12/21/2007 1:55p Bassam Felix, 462 Pharyngitis Acute MD Office Visit 10/30/2007 1:30p Mihaela Ferraro, 461.0 Sinusitis Acute N.P. Maxillary 782.9 Skin & Integumentary Tissue Other Symptoms Office Visit 08/21/2007 Dolores Mota, v04.81 Need For Prophylactic 10:15a Mihaela N.P. 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 Site Office Visit 02/03/2007 8:00a Mihaela Ferraro, 727.05 Tenosynovitis Hand & N.P. Wrist Other Office Visit 01/17/2007 1:45p Mihaela Ferraro, 465.8 Upper Respiratory N.P. Infections Acute Other Multiple Sites 307.49 Sleep Disorder Other Office Visit 01/05/2007 3:25p Dolores Villalobos, 461.0 Sinusitis Acute MD Bassam Maxillary Office Visit 12/23/2006 9:45a Mihaela Ferraro, 461.0 Sinusitis Acute N.P. Maxillary Office Visit 09/27/2006 2:00p Mihaela Ferraro, 562.11 Diverticulitis Colon N.P. W/O Hemorrhage Office Visit 09/19/2006 10:45a Mihaela Ferraro, 782.9 Skin & Integumentary N.P. Tissue Other Symptoms Office Visit 09/09/2006 9:00a Mihaela Ferraro, 600.00 Hypertrophy Prostate N.P. W/O Urinary Obstruction & Other Luts 782.9 Skin & Integumentary Tissue Other Symptoms Office Visit 08/18/2006 2:15p Mihaela Ferraro, 461.0 Sinusitis Acute N.P. Maxillary 477.0 Rhinitis Allergic Due To Pollen 529.0 Glossitis Tongue Office Visit 07/28/2006 3:45p Mihaela Ferraro, N.P. 529.0 Glossitis Tongue 461.0 Sinusitis Acute Maxillary Office Visit 04/12/2006 4:15p Mihaela Ferraro, 477.0 Rhinitis Allergic N.P. Due To Pollen 715.10 Osteoarthrosis Localized Prim Site Unspec 600.00 Hypertrophy Prostate W/O Urinary Obstruction & Other Luts Office Visit 11/11/2005 1:30p Mihaela Ferraro, 461.0 Sinusitis Acute N.P. Maxillary Office Visit 10/05/2005 4:00p Mihaela Ferraro, 600.00 Hypertrophy Prostate N.P. W/O Urinary Obstruction & Other Luts Office Visit 09/21/2005 2:45p Mihaela Ferraro, 788.41 Urinary Frequency N.P. 599.7 Hematuria Office Visit 01/26/2005 3:15p Mihaela Ferraro, 477.0 Rhinitis Allergic N.P. Due To Pollen 715.10 Osteoarthrosis Localized Prim Site Unspec 780.79 Malaise And Fatigue Other Office Visit 11/17/2004 10:45a Mihaela Ferraro, N.P. 466.0 Bronchitis Acute 786.2 Cough 780.6 Fever 461.0 Sinusitis Acute Maxillary Office Visit 11/11/2004 1:45p Sara Mcmahon MD 466.0 Bronchitis Acute 487.1 Influenza W/ Other Respiratory Manifestations Office Visit 11/02/2004 1:30p Mihaela Ferraro, 995.2 Adverse Effect Of N.P. Drug Medicinal & Biological Substance Unsp Office Visit 10/22/2004 2:30p Mihaela Ferraro, 789.00 Pain Abdominal N.P. Unspec Site 461.0 Sinusitis Acute Maxillary Office Visit 09/30/2004 10:45a Mihaela Ferraro N.P. 786.2 Cough 461.0 Sinusitis Acute Maxillary Office Visit 02/24/2004 1:30p Mihaela Ferraro, N.P. 462 Pharyngitis Acute 461.0 Sinusitis Acute Maxillary Office Visit 06/25/2003 2:30p Mihaela Ferraro, 461.0 Sinusitis Acute N.P. Maxillary 382.00 Otitis Media Suppurative Acute Office Visit 08/01/2002 3:45p Mihaela Ferraro, 461.0 Sinusitis Acute N.P. Maxillary Plan of Treatment 12/11/2018 - Mihaela Mota N.PTimJ01.00 Acute maxillary sinusitis, unspecifiedComments:ciproOTC mucinex,sudafed, increase fluids, rest, ibuprofen
--- OUTSIDE RECORDS SUMMARY | 2018-12-28 11:28 | XMS REPORT | Continuity of Care Document ---
:1945 External Reference #:[id number] Author Name Alaina Huitron Care Team Providers Name Role Phone Mihaela Mota NP Primary Care Physician Unavailable Payers Date Identification Numbers Payment Provider Subscriber Policy Number: [id number] Medicare Xander Irving PayID: [id number] [address] [place] [address] Policy Number: [id number] [facility] Xander Irving Group Name: [id number] [address] PayID: [id number] [place] [address] Advance Directives Description No Information Available Problems Date Description Provider Status Onset: 05/30/2018 Cervical disc disorder Saúl Coley MD Active Onset: 05/30/2018 Idiopathic peripheral neuropathy Saúl Coley MD Active Onset: 04/28/2016 Chronic obstructive lung disease Lizy Bennett MD Active Onset: 04/28/2016 Malignant neoplasm of lower lobe, 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 Onset: 03/23/2016 Obesity Lizy Bennett MD Active Onset: 03/23/2016 Disorder of lung Lizy Bennett MD Active Onset: 03/16/2016 Encounter for screening for malignant Lizy Bennett MD Active neoplasm of respiratory organs Onset: 03/16/2016 Disturbance in sleep behavior Lizy Bennett MD Active Onset: 03/16/2016 Allergic rhinitis Lizy Bennett MD Active Onset: 03/16/2016 Gastroesophageal reflux disease Lizy Bennett MD Active Onset: 03/16/2016 Cough Lizy Bennett MD Active Onset: 03/16/2016 Dyspnea Lizy Bennett MD Active Family History Date Family Member(s) Observation Comments General noncontribitory Social History Type Date Description Comments Sex Unknown Occupation Retired [employer] Hand Dominance Right-handed Cigarette Use Quit 2 Years Ago ETOH Use Occasionally consumes alcohol Tobacco Use Start: Unknown Patient is a former End: Unknown smoker Smoking Status Reviewed: 11/29/18 Patient is a former smoker Exercise Does not exercise Type/Frequency Allergies, Adverse Reactions, Alerts Date Description Reaction Status Severity Comments 03/16/2016 Sulfa Antibiotics Active Medications Medication Date Status Form Strength Qnty SIG Indications Ordering Provider Nebulizer 04/07/20 Active Kit 1unit use as R06.02 Lizy Compressor/Dualf 16 s directed keven Bennett/7' Tubing/Aerosol T/Mthpiece Omeprazole 03/30/20 Active Capsules 40mg [address] mouth every day Losartan 03/30/20 Active Tablets 100mg 1 by Unknown Potassium 16 mouth every day Finasteride 01/28/20 Active Tablets 5mg 1 by Unknown 16 mouth every day Levocetirizine 01/27/20 Active Tablets 5mg 1 by Unknown Dihydrochloride 16 mouth every day Metoprolol Active Tablets ER 50mg 1 by Unknown Succinate ER 00 24HR mouth every day Multi For Him Active Capsules 1 by Unknown 00 mouth every day Krill Oil Active Capsules 350mg take one Unknown [place]-3 00 capsule/t ablet daily by mouth Move Free Joint Active Tablets once Unknown Health Advanced 00 daily glucosami ne-condro itinn Levaquin 06/08/20 Hx Tablets 500mg 7tabs 1 by R06.02 Lizy 16 - mouth Donald, Unknown every day Amiodarone HCL 06/07/20 Hx Tablets 100mg 1 by Unknown 16 - mouth Unknown every day Duoneb 04/07/20 Hx Solution 0.5-2.5(3 2unit 1 unit R06.02 Lizy 16 - )mg/3ML s nebl Donald, Unknown every 6 MD hours as needed Benzonatate 04/02/20 Hx Capsules 100mg 120ca 1 capsule Lizy 16 - ps 2-3 times Donald, 05/30/20 a day as MD 18 needed Prednisone 04/02/20 Hx Tablets 20mg 30tab 3 tabs Lizy 16 - s daily for Donald, 06/07/20 3 days, 2 MD 16 tabs daily for 3 days, 1 tab daily for 7 days, 1/2 tab for 14 days Symbicort 03/30/20 Hx Aerosol 160-4.5mc 2 puff Unknown 16 - g/Act twice a Unknown day ( Not Using ) Fluticasone 03/30/20 Hx Suspension 50mcg/Act 2 sprays Unknown Propionate 16 - each Unknown nostril daily as needed Azelastine HCL 03/25/20 Hx Solution 0.1% 60ml 1 spray Lizy (Nasal) 16 - both Donald, Unknown nostrils twice daily Montelukast 03/25/20 Hx Tablets 10mg 90tab 1 by Lizy Sodium 16 - s mouth Donald, 05/30/20 every day MD Desai Dymista 03/23/20 Hx Suspension 137-50mcg 46gm 1-2 spray Lizy 16 - /Act twice a Donald, Unknown day MD Naik 03/23/20 Hx Tablets 10mg 90tab 1 by Lizy 16 - s mouth Donald, 07/11/20 every day MD Desai Cialis 02/25/20 Hx Tablets 20mg one tab Unknown 16 - 30 Unknown minutes prior to intercour se Diclofenac 01/27/[address] 50mg take one Unknown Sodium 16 - tablet by Unknown mouth twice a day as needed Valtrex 01/27/20 Hx Tablets 500mg 1 by Unknown 16 - mouth Unknown twice a day Zovirax 01/27/20 Hx Cream 5% apply 5 Unknown 16 - times Unknown daily prn Metoprolol 03/06/20 Hx Tablets ER 25mg 90tab 1 tab by Neptali Succinate ER 13 - 24HR s mouth Stefek, Unknown every day M.D., [facility] Benicar 03/06/20 Hx Tablets 40mg 90tab 1 tab by Neptali 13 - s mouth Stefek, Unknown every day M.D., [facility] Percocet 12/30/19 Hx Tablets 5-325mg 40tab 1-2 po Ruben MTim 12 - s q4h prn Zupruk, 01/06/20 pain M.D. 12 Medrol Dosepak 12/30/19 Hx Tablets 4mg 1tabs follow Ruben MTim 12 - package Zupruk, 06/07/20 direction M.DTim 16 s take with food Percocet 12/30/19 Hx Tablets 10-325mg 40tab 1 po q Ruben MTim 12 - s 4hrs prn Zupruk, Unknown pain M.DTim Osteo Bi-Flex Hx Tablets 250-200mg 1 by Unknown Regular Strength 00 - mouth 11/27/19 every day 19 [place] 3 500 Hx Capsules 2 by Unknown 00 - mouth two 07/11/20 times a 18 day Medications Administered in Office Medication Date Status Form Strength Qnty SIG Indications Ordering Provider Technetium TC Administered Injection Neptali 99M 013 Ezekiel Keita M.D., FACC, Per Unit Dose FSCAI Up To 40 Millicuries Inj, Administered Injection Mark Howard Regadenoson, 012 Ac Cohen 0.1 MG Thallium Administered Injection Mark Howard 012 Ac Cohen Technetium TC Administered Injection Mark Howard 99M 012 Ac Cohen Tetrofsherylin, Per Unit Dose Up To 40 Millicuries Immunizations Description No Information Available Vital Signs Date Vital Result Comment 11/29/2018 10:09am Height 69 inches 5'9" Weight 236.00 lb Heart Rate 91 /min BP Systolic Sitting 138 mmHg large adult cuff left arm BP Diastolic Sitting 82 mmHg large adult cuff left arm Respiratory Rate 16 /min O2 % BldC Oximetry 98 % at rest on room air BMI (Body Mass Index) 34.8 kg/m2 07/11/2018 9:59am Height 69 inches 5'9" Weight 243.00 lb Heart Rate 84 /min BP Systolic Sitting 110 mmHg BP Diastolic Sitting 78 mmHg BMI (Body Mass Index) 35.9 kg/m2 05/30/2018 8:15am Height 69 inches 5'9" Weight 242.00 lb Heart Rate 84 /min BP Systolic Sitting 114 mmHg BP Diastolic Sitting 70 mmHg BMI (Body Mass Index) 35.7 kg/m2 12/15/2016 2:28pm Heart Rate 84 /min BP Systolic 136 mmHg BP Diastolic 84 mmHg Respiratory Rate 18 /min Body Temperature 98.7 F 07/28/2016 3:29pm Height 72 inches 6'0" Weight 230.00 lb Heart Rate 88 /min BP Systolic 142 mmHg BP Diastolic 78 mmHg Respiratory Rate 18 /min Body Temperature 98.6 F BMI (Body Mass Index) 31.2 kg/m2 06/08/2016 1:54pm Height 72 inches 6'0" Weight 240.00 lb Heart Rate 104 /min BP Systolic 108 mmHg BP Diastolic 70 mmHg Respiratory Rate 18 /min O2 % BldC Oximetry 94 % BMI (Body Mass Index) 32.5 kg/m2 04/28/2016 10:04am Height 72 inches 6'0" Weight 240.00 lb Heart Rate 112 /min BP Systolic 134 mmHg BP Diastolic 68 mmHg Respiratory Rate 14 /min O2 % BldC Oximetry 98 % BMI (Body Mass Index) 32.5 kg/m2 04/07/2016 11:54am Height 72 inches 6'0" Weight 240.00 lb Heart Rate 104 /min BP Systolic Sitting 152 mmHg BP Diastolic Sitting 89 mmHg Respiratory Rate 16 /min O2 % BldC Oximetry 98 % BMI (Body Mass Index) 32.5 kg/m2 03/31/2016 9:06am Height 72 inches 6'0" Weight 240.00 lb Heart Rate 102 /min BP Systolic Sitting 142 mmHg BP Diastolic Sitting 84 mmHg Respiratory Rate 18 /min O2 % BldC Oximetry 95 % BMI (Body Mass Index) 32.5 kg/m2 03/23/2016 11:29am Height 72 inches 6'0" Weight 240.00 lb Heart Rate 111 /min BP Systolic Sitting 144 mmHg BP Diastolic Sitting 84 mmHg Respiratory Rate 14 /min O2 % BldC Oximetry 96 % BMI (Body Mass Index) 32.5 kg/m2 03/16/2016 8:27am Height 72 inches 6'0" Weight 240.00 lb Heart Rate 76 /min Respiratory Rate 14 /min O2 % BldC Oximetry 98 % BMI (Body Mass Index) 32.5 kg/m2 Neck Circumference in inches 18 Results Test Date Facility Test Result H/L Range Note Laboratory test 07/11/2018 [facility] Vitamin B12 662 pg/mL N 180-914 [address] [place] [address] [phone] Folic Acid (Folate) > 20.00 ng/mL >3.99 Hemoglobin A1c (Glyco HGB) 5.7 % High 4.0-5.6 2 Protein 07/11/2018 [facility] Total 6.7 g/dL 6.3 - Electrophoresis [address] Protein(Pep) 7.9 [place] [address] [phone] Albumin 3.5 g/dL 3.4-4.7 Alpha-1 Globulin 0.3 g/dL 0.1-0.3 Alpha-2 Globulin 1.0 g/dL 0.6-1.0 Beta Globulin 0.8 g/dL 0.7-1.2 Gamma Globulin 1.2 g/dL 0.6-1.6 Albumin/Globulin Ratio 1.09 Impression See Comment 3 Laboratory test 07/11/2018 [facility] TSH (Thyroid Stim 1.57 N 0.34-5.[address] Horm) mcIU/mL [place] [address] [phone] Paraneoplastic 07/11/2018 [facility] Paraneoplastic Ab See [address] Interp Comment [place] [address] [phone] Anti-Neuronal Nuclear Ab Type1 Negative titer <1:240 Reflex Added None. 5 Anti-Neuronal Nuclear Ab Type2 Negative titer <1:240 6 Anti-Neuronal Nuclear Ab Type3 Negative titer <1:240 7 Anti-Glial/Neuronal Nuc Ab-1 A Negative titer <1:240 8 Purkinje Cell Cytoplasm Type 1 Negative titer <1:240 9 Purkinje Cell Cytoplasm Type 2 Negative titer <1:240 10 Purkinje Cell Cytoplasm Typ Tr Negative titer <1:240 11 Amphiphysin Antibody Negative titer <1:240 12 CRMP-5 IgG Antibody Negative titer <1:240 13 Anti-Striated Muscle Antibody Negative titer <1:120 14 Calcium Channel Binding Ab P/Q 0.00 nmol/L <=0.02 15 N Type Calcium Channel Binding 0.00 nmol/L <=0.03 16 ACh Receptor Muscle Binding Ab 0.00 nmol/L <=0.02 17 AChR Ganglionic Neuronal Ab 0.00 nmol/L <=0.02 18 Voltage-Gated Potassium Chann 0.00 nmol/L <=0.02 19 Laboratory test 07/11/2018 [facility] Manganese 1.2 ng/mL < 2.[address] [place] [address] [phone] CBC Auto Diff 06/08/2016 [facility] White Blood 15.5 High 3.5- 10.8 DRIVE Count 10^3/uL [place] [address] [phone] Red Blood Count 4.15 10^6/uL N 4.0-5.4 Hemoglobin 11.9 g/dL Low 14.0-18.0 Hematocrit 35 % Low 42-52 Mean Corpuscular Volume 85 fL N 80-94 Mean Corpuscular Hemoglobin 29 pg N 27-31 Mean Corpuscular HGB Conc 34 g/dL N 31-36 Red Cell Distribution Width 15 % N 10.5-15 Platelet Count 436 10^3/uL N 150-450 Mean Platelet Volume 8 um3 N 7.4-10.4 Abs Neutrophils 11.8 10^3/uL High 1.5-7.7 21 Abs Lymphocytes 1.5 10^3/uL N 1.0-4.8 Abs Monocytes 2.0 10^3/uL High 0-0.8 22 Abs Eosinophils 0.1 10^3/uL N 0-0.6 Abs Basophils 0.1 10^3/uL N 0-0.2 Abs Nucleated RBC 0 10^3/uL N Granulocyte % 75.9 % N 38-83 Lymphocyte % 9.8 % Low 25-47 Monocyte % 12.9 % High 1-9 Eosinophil % 0.5 % N 0-6 Basophil % 0.9 % N 0-2 Nucleated Red Blood Cells % 0 N Comp Metabolic Panel 06/08/2016 [facility] Sodium 132 mmol/L Low 133-[address] [place], [place] [id number] [phone] Potassium 3.8 mmol/L N 3.5-5.0 Chloride 93 mmol/L Low 101-111 Co2 Carbon Dioxide 30 mmol/L N 22-32 Anion Gap 9 mmol/L N 2-11 Glucose 166 mg/dL High 70-100 Blood Urea Nitrogen 9 mg/dL N 6-24 Creatinine 0.89 mg/dL N 0.67-1.17 BUN/Creatinine Ratio 10.1 N 8-20 Calcium 8.5 mg/dL Low 8.6-10.3 Total Protein 5.4 g/dL Low 6.4-8.9 Albumin 2.8 g/dL Low 3.2-5.2 Globulin 2.6 g/dL N 2-4 Albumin/Globulin Ratio 1.1 N 1-3 Total Bilirubin 0.80 mg/dL N 0.2-1.0 Alkaline Phosphatase 103 U/L N 34-104 Alt 46 U/L N 7-52 Ast 42 U/L High 13-39 Egfr Non- 84.8 N >60 Egfr 109.0 N >60 23 Body Fluid C&S 04/02/2016 [facility] Body Fluid Cult SEE RESULT 24, [address] [place] [address] [phone] Laboratory test 04/02/2016 [facility] Surgical SEE RESULT [address] [place] [address] [phone] Laboratory test 04/02/2016 [facility] Fungal Cult SEE RESULT [address] [place] [address] [phone] Mycobacterial Culture See Comment N 28 Laboratory test 04/02/2016 [facility] Cytology SEE RESULT [address] Non-Resource [employer] Teacher BELOW [place], [place] [address] [phone] Fungal Cult Other Sources SEE RESULT BELOW 30 Laboratory test 03/29/2016 [facility] Point of Care 98 mg/dL N 74-106 [address] [place] [address] [phone] Surgical 01/18/2012 [facility] Surgical -------- [address] Pathology -------- [place] [address] <OJG [phone] NOTE> International 01/12/2012 [facility] Inr 0.85 Low 0.88-1.13 33 , Normalized Ratio [address] 34 [place] [address] [phone] Protime 10.0 SEC Low 10.3-13.5 35 Laboratory test 01/12/2012 [facility] PTT (Aptt) 27.8 SEC 25.1-38.[address] [place], [place] [id number] [phone] Type And Screen 01/12/2012 [facility] Patient O POSITIVE (Pre-Adm) [address] [place] [address] [phone] Antibody Screen NEGATIVE Specimen Discard Date 01/26/12 36 1 Normal Range 180 to 914 Indeterminate Range 145 to 180 Deficient Range <145 2 Therapeutic target for the treatment of diabetes mellitus patients is <7% HBA1C, and in selective patients <6.0%. Please refer to [place] [employer] diabetic care guidelines for further information. 3 RESULT: No apparent monoclonal protein on serum electrophoresis. Test Performed by: [facility] - [address] [address] 4 No informative autoantibodies were detected in the Paraneoplastic Evaluation. However, a negative result does not exclude neurological autoimmunity with or without associated neoplasia. Sensitivity and specificity of antibody testing are enhanced by testing both serum and CSF. 5 ADDITIONAL INFORMATION This test was developed and its performance characteristics determined by [facility] in a manner consistent with CLIA requirements. This test has not been cleared or approved by the U.S. Food and Drug Administration. 6 ADDITIONAL INFORMATION This test was developed and its performance characteristics determined by [facility] in a manner consistent with CLIA requirements. This test has not been cleared or approved by the U.S. Food and Drug Administration. 7 ADDITIONAL INFORMATION This test was developed and its performance characteristics determined by [facility] in a manner consistent with CLIA requirements. This test has not been cleared or approved by the U.S. Food and Drug Administration. 8 ADDITIONAL INFORMATION This test was developed and its performance characteristics determined by [facility] in a manner consistent with CLIA requirements. This test has not been cleared or approved by the U.S. Food and Drug Administration. 9 ADDITIONAL INFORMATION This test was developed and its performance characteristics determined by [facility] in a manner consistent with CLIA requirements. This test has not been cleared or approved by the U.S. Food and Drug Administration. 10 ADDITIONAL INFORMATION This test was developed and its performance characteristics determined by [facility] in a manner consistent with CLIA requirements. This test has not been cleared or approved by the U.S. Food and Drug Administration. 11 ADDITIONAL INFORMATION This test was developed and its performance characteristics determined by [facility] in a manner consistent with CLIA requirements. This test has not been cleared or approved by the U.S. Food and Drug Administration. 12 ADDITIONAL INFORMATION This test was developed and its performance characteristics determined by [facility] in a manner consistent with CLIA requirements. This test has not been cleared or approved by the U.S. Food and Drug Administration. 13 ADDITIONAL INFORMATION This test was developed and its performance characteristics determined by [facility] in a manner consistent with CLIA requirements. This test has not been cleared or approved by the U.S. Food and Drug Administration. 14 ADDITIONAL INFORMATION This test was developed and its performance characteristics determined by [facility] in a manner consistent with CLIA requirements. This test has not been cleared or approved by the U.S. Food and Drug Administration. 15 ADDITIONAL INFORMATION This test was developed and its performance characteristics determined by [facility] in a manner consistent with CLIA requirements. This test has not been cleared or approved by the U.S. Food and Drug Administration. 16 ADDITIONAL INFORMATION This test was developed and its performance characteristics determined by [facility] in a manner consistent with CLIA requirements. This test has not been cleared or approved by the U.S. Food and Drug Administration. 17 ADDITIONAL INFORMATION This test was developed and its performance characteristics determined by [facility] in a manner consistent with CLIA requirements. This test has not been cleared or approved by the U.S. Food and Drug Administration. 18 ADDITIONAL INFORMATION This test was developed and its performance characteristics determined by [facility] in a manner consistent with CLIA requirements. This test has not been cleared or approved by the U.S. Food and Drug Administration. 19 ADDITIONAL INFORMATION This test was developed and its performance characteristics determined by [facility] in a manner consistent with CLIA requirements. This test has not been cleared or approved by the U.S. Food and Drug Administration. Test Performed by: [facility] [employer] - [address] [address] 20 ADDITIONAL INFORMATION This test was developed and its performance characteristics determined by [facility] in a manner consistent with CLIA requirements. This test has not been cleared or approved by the U.S. Food and Drug Administration. Test Performed by: [facility] [employer] - [facility] [address] [place] [address] 21 Consistent with previous results on 06/06/16. 22 Consistent with previous results on 06/06/16. 23 Because ethnic data is not always readily available, this report includes an eGFR for both -Americans and non- Americans. The National Kidney Disease Education Program (NKDEP) does not endorse the use of the MDRD equation for patients that are not between the ages of 18 and 70, are , have extremes of body size, muscle mass, or nutritional status, or are non- or non-. According to the National Kidney Foundation, irrespective of diagnosis, the stage of the disease is based on the level of kidney function: Stage Description GFR(mL/min/1.73 m(2)) 1 Kidney damage with normal or decreased GFR 90 2 Kidney damage with mild decrease in GFR 60-89 3 Moderate decrease in GFR 30-59 4 Severe decrease in GFR 15-29 5 Kidney failure <15 (or dialysis) 24 LEFT LOWER LOBE 25 SEE RESULT BELOW Name: XANDER IVRING : [address]: Lizy Bennett MD Acct: [id number] Unit: [id number] AGE: 70 Location: OR Re04/02/16 SEX: M Status: REG SDC SPEC: [id number] JESUS: 04/02/16-1432 [facility] DR: Lizy Bennett MD REQ: [id number] RECD: 04/02/16 STATUS: ALYSA OAKLEY DR: Mihaela Mota OPERATIONS SUPERVISOR 2ND SHIFT _ SOURCE: BODY FLUID SPDESC:BRONCH WAS ORDERED: BF Cult/GS, AFB Cult Smear COMMENTS: LEFT LOWER LOBE Procedure Result Reported Site Body Fluid Gram Stain Final 04/02/16- 1616 ML 4+ Neutrophils No Organisms Seen Preparation By Cytospin Smear Body Fluid Culture Final 04/06/16- 44 ML Organism 1 NORMAL JENNIFER Quantity 1+ Acid Fast Stain - Direct Final 04/02/16- 1616 ML AFB Smear Result No Acid Fast Bacillus Present (Negative) Preparation By Cytospin Smear Due to limited sensitivity of the smear, results should be used as an adjunct in evaluating the patient's status and cultural examination is highly recommended for diagnosis. * ML - MAIN LAB ([facility]) . END OF REPORT * ML=Testing performed at Main Lab DEPARTMENT OF PATHOLOGY, [address] [place] [address] Abilio Smith M.D. Director [facility] # [id number] 26 SEE RESULT BELOW Name: XANDER IRVING : [address]: Lizy Bennett MD Acct: [id number] Unit: [id number] AGE: 70 Location: OR Re04/02/16 SEX: M Status: REG [facility] [place]C: [id number] JESUS: 04/02/16-1348 [facility] DR: Lizy Bennett MD REQ: [id number] RECD: 04/02/161516 STATUS: SOUT _ ORDERED: LEVEL IV FINAL DIAGNOSIS Lung, left lower lobe, biopsy: -- Benign pulmonary respiratory mucosa and alveolar parenchyma with nonspecific reactive changes. -- No evidence of neoplasia identified. CLINICAL HISTORY Smoker with cough, hemoptysis, lung mass PRE-OPERATIVE DIAGNOSIS Lung mass on left side GROSS DESCRIPTION The specimen is received in formalin labeled, Left Lower Lobe Biopsy, and consists of a 0.8 x 0.6 x 0.1 cm aggregate of eugene-pink irregular soft tissue fragments, which is submitted entirely in one cassette. Signed (signature on file) Abilio Smith MD 0951 END OF REPORT * ML=Testing performed at Main Lab DEPARTMENT OF PATHOLOGY, [address] [place] [address] Abilio Smith M.D. Director [facility] # [id number] 27 SEE RESULT BELOW Name: XANDER IRVING : [address]: Lizy Bennett MD Acct: [id number] Unit: [id number] AGE: 71 Location: OR Re04/02/16 SEX: M Status: REG SDC SPEC: [id number] JESUS: 04/02/16-1432 [facility] DR: Lizy Bennett MD REQ: [id number] RECD: 04/02/16643 STATUS: ALYSA OAKLEY DR: Mihaela Mota OPERATIONS SUPERVISOR 2ND SHIFT _ SOURCE: RESP SPDESC:BRONCH WAS ORDERED: Fungal - Other COMMENTS: LEFT LOWER LOBE Procedure Result Reported Site Fungal Cult - Other Sources Final 05/03/16- 923 ML Fungal Culture No Growth of Mycotic Organisms 4 weeks * ML - MAIN LAB ([facility]) . END OF REPORT * ML=Testing performed at Main Lab DEPARTMENT OF PATHOLOGY, [address] [place] [address] Abilio Smith M.D. Director [facility] # [id number] 28 SOURCE: BRONCHIAL WASHING, BRONCIAL WASHING MYCOBACTERIAL CULTURE FINAL No growth after 60 days of incubation. Test Performed by: [address] [address] Communications Programmer: Sanchez Palomares II, M.D., Ph.D. 29 SEE RESULT BELOW Name: XANDER IRVING : [address]: Lizy Bennett MD Acct: [id number] Unit: [id number] AGE: 70 Location: OR Re04/02/16 SEX: M Status: REG SDC SPEC: [id number] JESUS: 04/02/16-1432 [facility] DR: Lizy Bennett MD REQ: [id number] RECD: 04/02/16 STATUS: SOUT _ ORDERED: LEVEL IV, THIN PREP NON G FINAL DIAGNOSIS Bronchial lavage, left lower lobe: --Benign -ciliated bronchial cells, lymphocytes and macrophages. A cell block was prepared in the evaluation of this specimen. Smears and cell block reveal similar findings. BRONCHIAL LAVAGE LEFT - LEFT LOWER LOBE BRONCHIAL LAVAGE CLINICAL HISTORY Lung mass, smoker. GROSS DESCRIPTION 15 mls of cloudy blood red lavage fluid. Signed (signature on file) Abilio Smiht MD 1420 END OF REPORT * ML=Testing performed at Main Lab DEPARTMENT OF PATHOLOGY, [address] [place] [address] Abilio Smith M.D. Director [facility] # [id number] 30 SEE RESULT BELOW Name: XANDER IRVING : [address]: Lizy Bennett MD Acct: [id number] Unit: [id number] AGE: 70 Location: OR Re04/02/16 SEX: M Status: REG SDC SPEC: [id number] JESUS: 04/02/16-[address]: Lizy Bennett MD REQ: [id number] RECD: 04/02/16-1518 STATUS: RES CELE DR: Mihaela Mota OPERATIONS SUPERVISOR 2ND SHIFT _ SOURCE: RESP SPDESC:BRONCH WAS ORDERED: Fungal - Other COMMENTS: LEFT LOWER LOBE Procedure Result Reported Site Fungal Cult - Other Sources Preliminary 04/11/16- 1243 ML No Growth Week 1 * ML - [facility] ([facility]) . END OF REPORT * ML=Testing performed at Main Lab DEPARTMENT OF PATHOLOGY, [address] [place] [address] Abilio Smith M.D. Director [facility] # [id number] 31 Real Estate Transaction Coordinator: [id number] CHELLE CASTILLO 32 ---- RUN DATE: 01/20/12 [facility] NMI LIVE PAGE 1 RUN TIME: 1441 Specimen Inquiry RUN USER: INTERFACE -- Name: XANDER IRVING Status: [facility] Re01/18/12 Age/Sex: 66/M Unit#: [id number] Location: [facility] : 47 -- Specimen: [id number] SOUT Spec Date:01/18/12- Subm Dr: Ruben holm MD Spec Type: SURGICAL P Received:01/19/12 Copies to: SPECIMEN T1-T2 DISC HISTORY PRE-OP DIAGNOSIS: Left T1-T2 disc herniation GROSS DESCRIPTION The specimen is received in formalin labelled Xander Madrigaly, T1-2 Disc, and consists of a eugene-moran fibrous connective tissue fragments measuring 1.4 x 1.0 x 0.3 cm. in aggregate. Submitted entirely, one cassette. 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 Signed Electronically by: ABILIO SMITH MD 01/20/12 1442 -- -- DEPARTMENT OF PATHOLOGY, [address] [place] [address] [facility] Permit #[id number] Abilio Smith M.D. Director Connie Jauregui M.D. Mine Environmental Engineer Dir heltonor -- 33 SDS 01/17 34 Recommended INR for Patients on Oral Anticoagulants Prophylaxis 2.0 - 3.0 Treatment of thrombosis 2.0 - 3.0 Prevention of embolism 2.0 - 3.0 Prevention of embolism from prosthetic heart valves 2.5 - 3.5 35 DIAGNOSIS,TREATMENT,AND THERAPY MUST BE BASED ON THE INR VALUE ALONE. 36 PREADMISSION TESTING SAMPLES FOR BLOOD BANK WILL BE HELD FOR 14 DAYS FROM THE DATE OF COLLECTION *IF* THE FOLLOWING CRITERIA ARE MET: 1) THE PATIENT HAS *NOT* BEEN IN THE LAST 3 MONTHS. 2) THE PATIENT HAS *NOT* BEEN TRANSFUSED IN THE LAST 3 MONTHS. PREADMISSION TESTING SAMPLES WILL *NOT* BE HELD FOR 14 DAYS FROM PATIENTS WHO IN THE LAST 3 MONTHS: 1) HAVE BEEN 2) HAVE BEEN TRANSFUSED THESE PATIENTS *MUST* BE COLLECTED WITHIN 3 DAYS OF THE SURGERY DATE. Procedures Date Code Description Status 07/04/2018 98028 Nerve Conduction 07-03 Studies Completed 07/04/2018 27402 Needle Electromyography Complete, Five Or More Muscles Completed Studied 12/15/2016 81675 Removal Tunneled Central Venous Access Dev W/Sub Port/Pump Completed 08/02/2016 37944 Fluoroscopic Guidance For Cent Completed 08/02/2016 05785 Insertion Tunneled Cent Venous Cathr W Subcut Port 5 Yrs Completed Or Oldr 05/11/2016 93886 Sleep Study Unattended,HRT Rate,Oxygen Sat,Resp Completed Effort/Airflow 04/08/2016 22395 Diffusing Capacity Completed 04/08/2016 18753 Plethysmography Determination Lung Volumes & Per Airway Completed Resist 04/08/2016 87282 Pulmonary Function><Bronchodil Completed 04/02/2016 39048 Bronchoscopy With Bronchial Alveolar Lavage Completed 04/02/2016 76110 Bronchoscopy W/Transbronchial Lung Biopsy Completed 03/26/2013 95953 ECHO Transthoracic, Real-Time 2D With Doppler And Color Completed Flow 02/20/2013 54465 Stress Test Completed 02/20/2013 73947 Myocardial Perfusion Imaging Tomographic (Spect) Multiple Completed Studies 02/15/2013 67975 EKG Tracing & Interpretation Completed 09/01/2012 62174 Stress Test Completed 09/01/2012 87612 Myocardial Perfusion Imaging Tomographic (Spect) Multiple Completed Studies 01/18/2012 02861 Carrillo/Facet/Foraminotomy;Vertical Segement; Thoracic Completed Encounters Type Date Location Provider Dx Diagnosis Office Visit 07/11/2018 [facility] Sa[facility]l Coley, 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, unspecified M50.90 Cervical disc disorder, unsp, unspecified cervical region Office Visit 05/30/2018 Neurohospitalist Saúl G60.9 Hereditary and 8:30a Clinic MD Brijesh idiopathic neuropathy, unspecified M50.90 Cervical disc disorder, unsp, unspecified cervical region R20.0 Anesthesia of skin Office Visit 07/28/2016 2:45p Surgical Joao STim 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, left bronchus or lung Office Visit 06/08/2016 2:15p Pulmonology And Lizy Donald C34.32 [facility] neoplasm of Estimate Clerk lower lobe, left bronchus or lung R06.02 Shortness of breath Office Visit 04/28/2016 11:45a Pulmonology And Lizy C34.32 [facility] MD Donald neoplasm of Estimate Clerk lower lobe, left bronchus or lung J44.9 Chronic obstructive pulmonary disease, unspecified J30.9 Allergic rhinitis, unspecified K21.9 Gastro-esophageal reflux disease without esophagitis Office Visit 04/07/2016 12:00p Pulmonology And Lizy J98.4 Other disorders [facility] MD Donald of lung [facility] R06.02 Shortness of breath K21.9 Gastro-esophageal reflux disease without esophagitis G47.9 Sleep disorder, unspecified Office Visit 03/31/2016 9:15a Pulmonology And Lizy J98.4 Other disorders [facility] MD Donald of lung [facility] R06.02 Shortness of breath R05 Cough Office Visit 03/23/2016 12:00p Pulmonology And Lizy J98.4 Other disorders [facility] MD Donald of lung [facility] R06.02 Shortness of breath R05 Cough K21.9 Gastro-esophageal reflux disease without esophagitis J30.9 Allergic rhinitis, unspecified E66.09 Other obesity due to excess calories Office Visit 03/16/2016 8:00a Pulmonology And Lizy R06.02 Shortness of [facility] MD Donald breath [facility] R05 Cough K21.9 Gastro-esophageal reflux disease without esophagitis J30.9 Allergic rhinitis, unspecified G47.9 Sleep disorder, unspecified Z12.2 Encntr screen for malignant neoplasm of respiratory organs Office Visit 03/27/2013 2:15p [facility] Neptali Keita, 401.9 Hypertension Of Anu Shen, FACC, Unspec FSCAI Office Visit 03/06/2013 8:45a [facility] Neptali Keita, 401.9 Hypertension Of Anu Shen, FACC, Unspec FSCAI Office Visit 02/15/2013 11:00a [facility] Neptali Keita, 786.50 Pain Chest Unspec Of Anu Shen, FACC, FSCAI 401.9 Hypertension Unspec Office Visit 01/06/2012 Neurosurgery Ruben Cadena 722.11 Intervertebral Disc 1:00p Services Of Anu Echavarria M.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 Recommended a right afo but he is declining adn he says he is not in danger of falling. Reviewed blood work with him- no serologic etiology on blood work. Most likely much of his neuropathy was related to his chemotherapy.Follow up:1 YEAR
--- OUTSIDE RECORDS SUMMARY | 2018-12-28 11:28 | XMS REPORT | Continuity of Care Document ---
:1945 External Reference #:[id number] Author Name Mihaela Mota N.P. Address [address] [place] [address] Care Team Providers Name Role Phone Mihaela Mota N.P. Care Team Information Certified Nurse Unavailable Payers Date Identification Numbers Payment Provider Subscriber Effective: 2012 Policy Number: [id number] Medicare Xander Pitts Group Name: [facility] [address] PayID: [id number] [place] [address] Policy Number: [id number] [facility] Xander Pitts PayID: [id number] [address] [place] [address] Advance Directives Description No Information Available Problems [...] evening Pneumovax 23 08/04 Active Injection 25mcg/0.5 [place] ML Mihaela, N.P. Fluocinonide 07/18 Active Cream [...] Suspension 50mcg/Act 16units spray 2 sprays in [facility], - each N.P. 01/25 nostr [...] Hx Capsules 200mg 30caps 1 po qd [place] Mashelle, - N.P. 12/14 Mobic 12/14 Hx Tablets 15mg 90tabs 1 po qd Nakul Mashelle, - N.P. 03/13 Naproxen 11/11 Hx Tablets 500mg 60tabs 1 po bid [place] Mashelle, - N.P. 12/14 Vimovo 10/[address] 500-20mg 60tabs 1 po bid Mashelle, - N.P. 11/11 Cialis 10/26 Hx Tablets 10mg samples one as directed Maskrystinale, - N.P. 08/23 Augmentin 06/14 Hx Tablets 875-125mg 28tabs 1 po bid [place] x 14 days Mashelle, - N.P. 10/26 Keflex 06/04 Hx Capsules 500mg 40caps 1 po qid [place] x 10 days Mashelle, - N.P. 06/14 Xyzal 05/21 Hx Tablets 5mg 90tabs 1 by mouth Mashelle, - every day N.P. 05/30 Doxycycline 05/[address] 100mg 31caps 2 po x 1 [place], Part day then Mashelle, - 1 qd x 30 N.P. Keflex 04/28 Hx Capsules 500mg 28caps 1 po qid [place] x 7 days Mashelle, - N.P. 05/21 Biaxin XL 02/02 Hx Tablets ER 500mg 10tabs 1 po qd x [place] 24HR 10 days Maskrystinale, - N.P. 04/28 Cardura 01/21 Hx Tablets 1mg 30tabs 1 po qam Nakul, Mashelle, - N.P. 01/21 Avodart 01/21 Hx Capsules 0.5mg 90caps 1 po qd [place], Mashelle, - N.P. 10/26 Cardura 01/21 Hx Tablets 1mg 30tabs 1 po qam Nakul, Mashelle, - N.P. 09/14 Augmentin 01/21 Hx Tablets 875-125mg 20tabs 1 po bid Nakul, x 10 days Mashelle, - N.P. 02/02 Prednisone 01/21 Hx Tablets 50mg 3tabs 1 po qd x Nakul 3 days Maskrystinale, - N.P. 05/21 Augmentin 10/12 Hx Tablets 875-125mg 20tabs 1 po bid [place] x 10 days Maskrystinale, - N.P. 01/21 Princess-D 12 09/21 Hx Tablets ER 60-120mg 90tabs 1 po qd [place], 12HR Maskrystinale, - N.P. 05/21 Avelox 09/21 [...] Hx Capsules 200mg 90caps 1 po qd [place] Mashelle, - N.P. 10/26 Cipro 02/24 Hx Tablets 500mg 20tabs 1 po bid x 10 days Maskrystinale, - N.P. 07/20 Anaprox DS 11/25 Hx Tablets 550mg 60tabs 1 po q 12 hr with Mascarmita, - food N.P. 02/24 Valtrex 17 Hx Tablets 1gm 90tabs 1 po qd as Mihaela, - directed N.P. 09/21 Valtrex 09/09 Hx Tablets 1gm 90tabs 1 po qd [place], Maskrystinale, - N.P. 05/21 Zovirax 09/09 Hx Ointment 5% 15gm [facility] day to N.P. 02/17 sor Diflucan [...] 1 po q 12 hrs x [facility] 08/12 Xyzal 02/26 Hx [...] Hx Tablets 5mg 90tabs 1 po qd [place], /2008 Mashelle, - N.P. 10/26 Keflex 09/06 Hx Capsules 500mg 28caps 1 PO qid X 7 Days Mashelle, - N.P. 01/20 Avelox 07/23 Hx Tablets 400mg 14tabs 1 PO qd X Nakul 14 Days Mashelle, - N.P. 01/20 Guaifenesin-Pseu 01/09 Hx Tablets ER 12HR 462 [place], doephedrine 12HR Susan Farmer RN MS 01/09 Guaifenesin/Pseu 01/09 Hx Tablets ER 1200/120 60tabs 1 tab bid 2 [place], doephed 12HR Susan Farmer RN MS 08/12 [...] Hx Tablets 200mg 1 po qd x [place] 3 days Mashelle, - N.P. 01/09 Duratuss [...] Hx Capsules 500mg 28caps 1 po qid [place] x 7 days Mashelle, - N.P. 09/19 [...] Hx Tablets 180mg 90tabs 1 po qd [place] Mashelle, - N.P. 09/19 Keflex 12/14 Hx Capsules 500mg 40caps 1 po qid [place] x 10 days Mashelle, - N.P. 04/12 Cipro 11/11 Hx Tablets 500mg 20tabs 1 po bid Nakul x 10 days Mihaela, - N.P. 04/12 Duratuss GP 11/11 Hx Tablets 1200mg;12 24tabs 1 po q 12 Nakul 0 mg h Mihaela, - N.P. 04/12 Nasonex 11/11 Hx Suspension 50mcg 1units 2 Sprays Nakul, Intranasal [place] Ea Mihaela, - Nostril N.P. 07/13 qd Flomax 09/21 Hx Capsules 0.4mg 90caps one po qd [place] 30 Maskrystinale, - minutes N.P. 09/27 after meal Clarinex 03/19 Hx Tablets 5mg 90tabs 1 po qd Nakul prn Mihaela, - N.P. 04/12 Nexium 03/19 Hx Capsules 40mg 90caps 1 po [place] 1/2hour Mihaela, - prior to N.P. 09/16 dinner Celebrex 01/26 Hx Capsules 200mg 180caps 1 po bid [place] Mascarmita, - N.P. 11/25 Avelox 12/14 Hx Tablets 400mg 7tabs 1 po qd [place], Mihaela, - N.P. 11/11 Zithromax Z-preet 11/11 Hx Tablets 250mg take as Trabout directed Elaine Banegas MD 09/21 Singulair 00 Hx Tablets 10mg 90tabs Take One [place], /0000 Tablet By Mihaela, - Mouth N.P. 08/04 Every In The Evening Immunizations CPT Code Status Date Vaccine Lot # [id number] Given 08/15/2018 Pneumococcal 23 Immunization Adult Or Immunosuppressed Patient 82195 Given 08/04/2018 Influenza Vac, Quadrivalent, Split, 0.5mL Dosage, [id number] Im Use 83204 Given 07/18/2017 Influenza Vac, Quadrivalent, Split, 0.5mL Dosage, [id number] Im Use 42511 Given 07/26/2016 Influenza Vac, Quadrivalent, Split, 0.5mL Dosage, [id number] Im Use 04355 Given 08/08/2015 Influenza Vac, Quadrivalent, Split, 0.5mL Dosage, [id number] Im Use Q2038 Given 07/29/2014 Fluzone Trivalent Immunization [id number] Q2038 Given 10/12/2012 Fluzone Trivalent Immunization [id number] Q2038 Given 09/28/2011 Fluzone Trivalent Immunization [id number] 49639 Given 04/28/2011 Tdap (Adacel) Ages 7 And Above Only [id number] 87348 Given 08/21/2007 Afluria Or Fluvirin Flu Vac Intramuscular [id number] Vital Signs Date Vital Result Comment 12/11/2018 [...] 0.10 NONREACTIVE Nonreactive 13 finding Virus Antibody S/CORatio([facility] Laboratory test 01/05/2016 [place] Th[facility]at PO [...] >60 >60 31 Laboratory test 09/03/2009 [facility] HSV Culture SPECIMEN 32 finding [phone] DESCRIP <SEE NOTE> Laboratory test 09/03/2009 [facility] (Do not Use) Herpes Viral (SEE NOTE ) 33 finding [facility] Culture ([place] [address] Riaz)-[place] [phone] Laboratory test 01/24/2009 [facility] (Do not Use) Hemoglobin A1c 5.8 % 4.1-6 34 finding [facility] .[address] [place] [address] [phone] Lipid Panel 01/20/2009 [facility] (Do not Use) Cholesterol 196 mg/dL 50 -19 35 [facility] [address] [place] [address] [phone] Triglycerides 368 mg/dL High 10-150 36 HDL 32 mg/dL 29-71 37 Chol/HDL Ratio 6.1 Ratio 4.0-6.7 38 VLDL 74 mg/dL High 2-29 LDL (Calc) Triglyceride roosevelt <SEE NOTE> mg/dL 39 CBC With Auto Diff 01/20/2009 [facility] (Do not Use) WBC 6.3 K/ul 4.0- 10.9 [facility] [place] [address] [phone] RBC 5.26 M/ul 4.70-6.10 Hemoglobin 16.0 GM/dl [...] PSA 0.70 ng/ml 0.00- 4.00 40 finding [facility] [place] [address] [phone] Vitamin D, 25 Hydroxy 21 ng/mL Low 31-100 Direct LDL 129 mg/dL 20-129 [facility] 01/20/2009 [facility] (Do not Use) Sodium 142 mmol/L 135-144 [facility] [place] [address] [phone] Potassium 4.4 mmol/L 3.6-5.2 41 Chloride 105 [...] GFR For > 60 mL/min 60-175 44 [facility] 07/13/2007 [facility] (Do not Use) Sodium 138 mmol/L 135-144 [facility] [place] [address] [phone] Potassium 3.8 mmol/L 3.6-5.2 Chloride 102 mmol/L [...] not Use) WBC 8.9 K/ul 4.0- 10.9 [facility] [place] [address] [phone] RBC 4.62 M/ul Low 4.70-6.10 Hemoglobin 14.5 [...] not Use) Cholesterol 192 mg/dL 50 -199 [place] [address] [phone] Triglycerides 276 mg/dL High 10-150 HDL 36 mg/dL Abnormal (>40) Chol/HDL Ratio 5.3 Ratio VLDL 55 mg/dL LDL (Calc) 101 mg/dL 20-129 Laboratory test 07/13/2007 [facility] (Do not Use) PSA 0.64 ng/ml 0.00- 4.00 47 finding [facility] [place] [address] [phone] TSH 0.95 uIU/ml 0.34-5.60 Diff For Manual CBC 07/13/2007 [facility] (Do not Use) Blast N/A % [place] [address] [phone] Promyelocyte N/A % Myelocyte N/A % Metamyelocyte [...] 1.33 ng/ml 0.00- 4.00 48, 49 finding [facility] [place] [place] [address] [phone] 1 SPECIMEN DESCRIPTION THROAT SWAB CULTURE RESULTS NORMAL THROAT JENNIFER NEGATIVE FOR BETA HEMOLYTIC STREPTOCOCCI GROUPS A,C OR G. REPORT STATUS FINAL 08/20/2018 Unless otherwise specified, testing performed by [facility] [address] [place] [address] 11151 2 Beginning 12/19/06 PSA values assayed at [facility] uses chemiluminescence methodology manufactured by [employer] for use on the DXI analyzer. Values [...] Unless otherwise specified, testing performed by [facility] [address] [place] [address] 20039 15 This sample is drawn by:marla/vy 16 [...] IMMUNOFLUORESCENCE. CULTURE ORIGINALLY FINALED ON 09/05/09 [place] [address] REPORT STATUS FINAL 04/30/2010 33 SPECIMEN DESCRIPTION LEFT GROIN AREA SPECIAL REQUESTS NONE Unless otherwise specified, testing performed by [facility] [address] [place] [address] 14901 34 LAB DRAW KS 35 FASTING This [...] 40 BEGINNING 12/19/06, PSA VALUES ASSAYED AT [facility] USES AN EIA METHODOLOGY MANUFACTURED BY [employer] FOR USE ON THE DXI ANALYZER. VALUES [...] 47 BEGINNING 12/19/06, PSA VALUES ASSAYED AT [facility] USES AN EIA METHODOLOGY MANUFACTURED BY [employer] FOR USE ON THE DXI ANALYZER. VALUES OBTAINED WITH DIFFERENT ASSAY METHODS OR KITS CAN NOT BE USED INTERCHANGEABLY. SERUM PSA MEASUREMENT IS NOT AN ABSOLUTE TEST FOR MALIGNANCY, THE PSA VALUE SHOULD BE USED IN CONJUNCTION WITH INFORMATION AVAILABLE FROM CLINICAL EVALUATION AND OTHER DIAGNOSTIC PROCEDURES. 48 SERG 645 49 PSA VALUES ASSAYED AT [facility] USES AN EIA METHODOLOGY MANUFACTURED BY [employer] FOR USE ON THE NEXIA ANALYZER. VALUES OBTAINED WITH DIFFERENT ASSAY METHODS OR KITS CAN NOT BE USED INT ERCHANGEABLY. SERUM PSA MEASUREMENT IS NOT AN ABSOLUTE TEST FOR MALIGNANCY, THE PSA VALUE SHOULD BE USED IN CONJUNCTION WITH INFORMATION AVAILABLE FROM CLINICAL EVALUATION AND OTHER DIAGNOSTIC PROCEDURES. Procedures Date Code Description Status 08/04/2018 60061 Admin Of Inj (Therapeutic Phrophylactic Or Diagnostic Completed Subq Inj 08/16/2017 [id number] Colonoscopy Completed 02/25/2016 76716 Measure Blood Oxygen Level Single Determination Completed 01/05/2016 97628 Measure Blood Oxygen Level Single Determination Completed 12/03/2015 98441 Measure Blood Oxygen Level Single Determination Completed 08/23/2012 90914 Electrocardiogram Complete Completed 01/07/2012 68013 Electrocardiogram Complete Completed 12/23/2011 13591 Electrocardiogram Complete Completed 09/14/2011 98847 Measure Blood Oxygen Level Single Determination Completed 08/07/2010 68678454 Colonoscopy Completed 07/20/2010 28500 Measure Blood Oxygen Level Single Determination Completed 07/13/2007 41803 Electrocardiogram Complete Completed 11/17/2004 48119 Measure Blood Oxygen Level Single Determination Completed 11/17/2004 35370 Airway Inhalation Treatment Completed Encounters Type Date [...] allergic N.P. rhinitis Office Visit 11/29/2017 12:30p Miahela Ferraro, J01.00 Acute maxillary N.P. sinusitis, unspecified [...] Susan Nguyen, RN MS 462 Pharyngitis Acute FOREIGN DIPLOMAT 465.9 URI Upper Respiratory Infections Acute Unspec [...]
[2018-12-28] MEDS: Enoxaparin(*) 40 MG/0.4 ML SYR SUBCUT SCH (13:02)
[2018-12-28] MEDS: NS 0.9% 1000 ML** 1,000 ML IV SCH ×2 (13:03→21:50)
[2018-12-28 14:08] LABS: INR 1.01 (0.77-1.02)
[2018-12-28 14:17] LABS: Albumin 3.3 g/dL (3.2-5.2); Albumin/Globulin Ratio 1.4 (1-3); BUN/Creatinine Ratio 19.7 (8-20); Calcium 9.2 mg/dL (8.6-10.3); EGFR African American 40.5 (>60); EGFR Non-African American 33.5 (>60); Globulin 2.4 g/dL (2-4); Potassium 4.4 mmol/L (3.5-5.0); Total Protein 5.7 g/dL (6.4-8.9); Troponin I 0.03 ng/mL (<0.04)
[2018-12-28 14:20] LABS: Total Bilirubin 17.5 mg/dL (0.2-1.0)
[2018-12-29 06:19] LABS: Hematocrit 38 % (42-52); Hemoglobin 12.9 g/dl (14.0-18.0); Mean Corpuscular HGB Conc 34 g/dl (31-36); Mean Corpuscular Hemoglobin 30 pg (27-31); Mean Corpuscular Volume 90 fL (80-94); Mean Platelet Volume 9.2 fL (7.4-10.4); Platelet Count 213 10^3/ul (150-450); Red Blood Count 4.24 10^6/ul (4.00-5.40); Red Cell Distribution Width 16 % (10.5-15); White Blood Count 6.2 10^3/ul (3.5-10.8)
[2018-12-29 06:27] LABS: ALT 137 U/L (7-52); Albumin 3.3 g/dL (3.2-5.2); Albumin/Globulin Ratio 1.4 (1-3); Alkaline Phosphatase 503 U/L (34-104); BUN/Creatinine Ratio 19.1 (8-20); Blood Urea Nitrogen 31 mg/dL (6-24); CO2 Carbon Dioxide 22 mmol/L (22-32); Chloride 104 mmol/L (101-111); EGFR African American 51.1 (>60); EGFR Non-African American 42.2 (>60); Globulin 2.4 g/dL (2-4); Glucose 100 mg/dL (70-100); Sodium 136 mmol/L (135-145); Total Protein 5.7 g/dL (6.4-8.9)
[2018-12-29 06:47] LABS: Anion Gap 10 mmol/L (2-11)
[2018-12-29 06:53] LABS: ABS Basophils 0.1 10^3/ul (0-0.2); ABS Eosinophils 0.1 10^3/ul (0-0.6); ABS Lymphocytes 2.5 10^3/ul (1.0-4.8); ABS Monocytes 0.7 10^3/ul (0-0.8); ABS Neutrophils 2.8 10^3/ul (1.5-7.7); ABS Nucleated RBC 0 10^3/ul; Eosinophil % 0.8 %; Lymphocyte % 40.2 %; Nucleated Red Blood Cells % 0.1
[2018-12-29] MEDS: NS 0.9% 1000 ML** 1,000 ML IV SCH (07:11)
[2018-12-29] MEDS ORDERED: Finasteride TAB* 5 MG PO SCH (09:00)
[2018-12-29] MEDS ORDERED: Pantoprazole TAB * 40 MG TAB PO SCH (09:00)
[2018-12-29 09:13] VITALS: BP 94/81
[2018-12-29] MEDS: Enoxaparin(*) 40 MG/0.4 ML SYR SUBCUT SCH (11:04)
--- NOTE | 2018-12-29 23:43 | DS ---
CC: Mihaela Mota NP; Dr. Ceron, [facility] * DISCHARGE SUMMARY: DATE OF ADMISSION: 12/28/18 DATE OF DISCHARGE: 12/29/18 PRIMARY CARE PROVIDER: Mihaela Mota NP PRIMARY ONCOLOGIST AND ATTENDING PHYSICIAN: Dr. Jan Ramos.* (DICTATED BY RENETTA TALLEY) DISCHARGING PROVIDER: RENETTA Talley CONSULTING GASTROENTEROLOGY INTERVENTIONALIST: Dr. Ceron at [facility]. PRIMARY DISCHARGE DIAGNOSIS: Jaundice secondary to large central obstructing liver mass representing carcinoma of unclear origin, but radiologically consistent with a primary cholangiocarcinoma. DISCHARGE MEDICATIONS: 1. Finasteride 5 mg p.o. daily. 2. Hydroxyzine 25 mg p.o. 4 times daily as needed for itching. 3. Singulair 10 mg p.o. daily. 4. Omeprazole 40 mg p.o. daily. HOSPITAL IMAGING: MRCP, 12/28/18. Findings consistent with type 4 cholangiocarcinoma, large hepatic lesion with nonspecific imaging characteristics, and distal colonic diverticulosis per radiology report. HOSPITAL COURSE: This is a 73-year-old gentleman with a history of lung cancer , status post resection, who had a recent discovery of a new liver mass and progressive hyperbilirubinemia, who presented to the oncology office for routine followup and subsequently directly admitted to the hospital. The patient had undergone outpatient biopsy on 12/25/18 and MRCP had been ordered, but not yet scheduled at the time that he saw Dr. Ramos. The patient's bilirubin had climbed from 9.9 measured on to 17.5 when measured on 12/28/18 and of note was normal at 0.70 on 12/06/18. The patient was obviously jaundiced with complaints of fatigue, nausea, and progressive pruritus. The patient subsequently received IV hydration and underwent MRCP for further characterization of the liver mass. Primary reason for MRCP was to determine whether there appeared to be a significant obstructive component which would explain his rise in bilirubin or was his rise in bilirubin more consistent with generalized liver failure secondary to metastatic disease. MRCP revealed a large central mass with imaging characteristics consistent with a cholangiocarcinoma. The mass measuring approximately 6.5 cm in diameter centrally at the confluence of the right and left hepatic duct. Secondary radiology review with Dr. Cunningham, who reported that the left hepatic ducts were severely dilated with mild to moderate dilation of the right hepatic duct and collapse of the proximal common bile duct and normal caliber more distally consistent with an obstructive process. Case was briefly reviewed with district resource officer, Dr. Aguilera, to discuss possible ERCP and subsequent biliary stenting. Dr. Aguilera suggested the case should handled at a tertiary facility. Primary oncologist, Dr. Ramos, had been in touch with interventional district resource officer, Dr. Ceron, at [place] regarding this case earlier this week. Contacted Dr. Ceron regarding MRCP findings who agreed that the patient should be evaluated for urgent stent and/or percutaneous drain. Following IV hydration , the patient reported that he was generally feeling well. He had no abdominal pain, nausea, or vomiting. His labs did not demonstrate any evidence of synthetic liver dysfunction with normal INR of 1.0, normal platelets, and normal albumin. Ammonia was just slightly elevated at 54, but the patient had no encephalopathy symptoms. Seeing this patient was asymptomatic, he elected for discharge to home and the discs for his MRCP was overnighted to [facility] for review by Dr. Ceron for appropriate intervention. DISPOSITION AND FOLLOWUP PLAN: The patient is being discharged to home in stable condition where he lives with his . Dr. Ceron will review imaging and plan will be for the patient to present to [facility] on an outpatient basis early next week for ERCP with biliary stenting versus percutaneous drainage. The patient will subsequently follow up with Dr. Ramos following the procedure for further review of final pathology and treatment recommendations at that time. RENETTA TALLEY [id number]/[facility] #: [id number] [facility]ENTER[facility]
== END 2018-12-29 13:24 | disposition home or self-care (01) | DRG 436 ==
LOC: MEDTELE 11:23
PROVIDERS: ADMIT Internal Medicine Hematology & Oncology; ATTEND Internal Medicine Hematology & Oncology
DX: C22.1 Intrahepatic bile duct carcinoma (principal); C79.9 Secondary malignant neoplasm of unspecified site; K72.90 Hepatic failure, unspecified without coma; N40.0 Benign prostatic hyperplasia without lower urinary tract symptoms; K21.9 Gastro-esophageal reflux disease without esophagitis; I10 Essential (primary) hypertension; Z66 Do not resuscitate; Z51.5 Encounter for palliative care; K57.30 Diverticulosis of large intestine without perforation or abscess without bleeding; G47.30 Sleep apnea, unspecified; Z85.46 Personal history of malignant neoplasm of prostate; Z88.2 Allergy status to sulfonamides; Z87.891 Personal history of nicotine dependence; Z72.89 Other problems related to lifestyle; Z90.2 Acquired absence of lung [part of]; Z85.118 Personal history of other malignant neoplasm of bronchus and lung; Z92.3 Personal history of irradiation; Z92.21 Personal history of antineoplastic chemotherapy
CPT/HCPCS: 36415; 74181; 76376; 80053; 82140; 84484; 85025; 85610; 99223; 99239; A9270-GY; J1650

== ENCOUNTER 2019-01-04 15:20 | Inpatient (IN) | payer MEDICARE, BC ==
--- NOTE | 2019-01-04 15:51 | ED ---
HPI Febrile Illness - HPI Summary HPI Summary: A 73 y/o M presents to ED with fever of 104 F which has since resolved after taking Tylenol. Patient had 3 biliary stents placed on 01/02/[address] Ceron at [facility]. 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 Patient's lab work on 01/02 showed LFT: 21.8, AP: 395, AST: 104, ALT: 100. Associated sx: chills, abd pain. Patient states that might be due to a muscle strain. He lifted a 40 lb suitcase after surgery. - History of Current Complaint Chief Complaint: EDGeneral Time Seen by Provider: 01/04/19 15:40 Hx Obtained From: Patient, Family/Loom Starter, Medical Records Onset/Duration: Resolved Temperature: 104 F - resolved Initial Severity: Moderate Current Severity: Moderate Pain Intensity: 6 Pain Scale Used: 0-10 Numeric Alleviating Factors: OTC Medicine - Tylenol Associated Signs and Symptoms: Chills, Recent Surgery, Other: - pos: abd pain - Allergy/Home Medications Allergies/Adverse Reactions: Allergies Allergy/AdvReac Type Severity Reaction Status Date / Time Sulfa (Sulfonamide Allergy Hives Verified 01/04/19 15:30 Antibiotics) Home Medications: Home Medications LevoCETirizine TAB (NF) [Xyzal TAB (NF)] 5 mg PO DAILY 01/04/19 [History Confirmed 01/04/19] Omeprazole CAP (NF) [Prilosec CAP* 20 MG] 20 mg PO BID 01/04/19 [History Confirmed 01/04/19] PMH/Surg Hx/FS Hx/Imm Hx Previously Healthy: No Endocrine/Hematology History: Denies: Hx Diabetes Cardiovascular History: Reports: Hx Hypertension - ON MEDS Denies: Hx Pacemaker/ICD, Other Cardiovascular Problems/Disorders Respiratory History: Reports: Hx Chronic Obstructive Pulmonary Disease (COPD), Hx Sleep Apnea, Other Respiratory Problems/Disorders - LUNG MASS / COPD ACCORDING TO H&P 1/2 LEFT LUNG REMOVED GI History: Reports: Hx Gastroesophageal Reflux Disease, Hx Hiatal Hernia Denies: Other GI Disorders History: Reports: Other Problems/Disorders - ENLARGE PROSTATE, CONTROL WITH MEDS Denies: Hx Renal Disease Musculoskeletal History: Reports: Hx Arthritis - HANDS Sensory History: Reports: Hx Contacts or Glasses Denies: Hx Hearing Aid Opthamlomology History: Reports: Hx Contacts or Glasses Psychiatric History: Denies: Hx Panic Disorder - Cancer History Cancer Type, Location and Year: lung - Lt LOWER LOBE REMOVED Hx Chemotherapy: Yes - ENDED 08/2016 Hx Radiation Therapy: Yes - ENDED 08/2016 - Surgical History Surgery Procedure, Year, and Place: 2011 T1, T2 LAMINOTOMY AND EXCISION OF HERNIATED DISC, [facility]. 2015 RIGHT TOE SURGERY, [facility]. LEFT FOOT REMOVED FIBROMATOSIS TUMORS [id number]. 10/25 LEFT LUNG REMOVED 05/27/16 Hx Anesthesia Reactions: No Infectious Disease History: No Infectious Disease History: Denies: Traveled Outside the [place] in Last 30 Days - Family History Known Family History: Negative: Cardiac Disease, Diabetes - Social History Occupation: Retired Lives: With Family Alcohol Use: None Alcohol Amount: SOCIALLY Hx Substance Use: No Substance Use Type: Reports: None Hx Tobacco Use: Yes Smoking Status (MU): Former Smoker Amount Used/How Often: 2 PPD FOR 45 YEARS Have You Smoked in the Last Year: No Review of Systems Positive: Fever - resolved, Chills Positive: Abdominal Pain Skin: Other - pos: jaundiced All Other Systems Reviewed And Are Negative: Yes Physical Exam - Summary Physical Exam Summary: Appearance: The patient is well-nourished in no acute distress and in no acute pain. Skin: The skin is warm and dry and jaundiced. HEENT: The head is normocephalic and atraumatic. The pupils are equal and reactive. The conjunctivae are icteric and without drainage. Nares are patent and without drainage. Mouth reveals moist mucous membranes and the throat is without erythema and exudate. The external ears are intact. The ear canals are patent and without drainage. The tympanic membranes are intact. Neck: the neck is supple with full range of motion and non-tender. There are no carotid bruits. There is no neck vein distension. Respiratory: Chest is non-tender. Lungs are clear to auscultation and breath sounds are symmetrical and equal. Cardiovascular: Heart is regular rate and rhythm. There is no murmur or rub auscultated. There is no peripheral edema and pulses are symmetrical and equal. Abdomen: The abdomen is soft and mildly tender in RUQ. There are normal bowel sounds heard in all four quadrants and there is no organomegaly palpated. Musculoskeletal: There is no back tenderness noted. Extremities are non-tender with full range of motion. There is good capillary refill. There is no peripheral edema or calf tenderness elicited. Neurological: Patient is alert and oriented to person, place and time. The patient has symmetrical motor strength in all four extremities. Cranial nerves are grossly intact. Deep tendon reflexes are symmetrical and equal in all four extremities. Psychiatric: The patient has an appropriate affect and does not exhibit any anxiety or depression. Triage Information Reviewed: Yes Vital Signs On Initial Exam: Initial Vitals Temp Pulse Resp BP Pulse Ox 97.6 F 128 16 94/63 96 01/04/19 15:23 01/04/19 15:23 01/04/19 15:23 01/04/19 15:23 01/04/19 15:23 Vital Signs Reviewed: Yes Diagnostics - Vital Signs Vital Signs Temp Pulse Resp BP Pulse Ox 01/04/19 15:23 97.6 F 128 16 94/63 96 - Laboratory Result Diagrams: 01/05/19 06:41 01/05/19 06:41 Lab Statement: Any lab studies that have been ordered have been reviewed, and results considered in the medical decision making process. - Radiology CXR Radiology Interpretation Completed By: Radiologist Summary of Radiographic Findings: IMPRESSION: LEFT LUNG INFILTRATE RECOMMEND FOLLOW-UP CHEST X-RAYS TO RESOLUTION. ED provider has reviewed this report. Re-Evaluation - Re-Evaluation 1 Re-Evaluation Time: 17:13 Change: Unchanged Comment: Discussing results with pt and plans for admission. Course/Dx - Course Course Of Treatment: Mr. Pitts presented 2 days after 3 biliary stents were placed to relieve biliary obstruction from a small liver mass. He was doing fine until today when he developed increased right upper quadrant pain and fever. His feels that his jaundice has improved after the procedure. His bilirubin was 21 reportedly just prior to the procedure. He presents obviously jaundiced, afebrile and tachycardic. He was given IV fluids while labs were obtained. His white count was 11.5. I spoke with Dr. Ramos who came in and admitted him to the hospital. At no point did he meet sepsis criteria however he was given Zosyn IV. - Diagnoses Provider Diagnoses: Post-op pain - Provider Notifications Discussed Care Of Patient With: Jan Ramos - oncology Time Discussed With Above Provider: 17:11 Instructed by Provider To: Admit As Inpatient Discharge - Sign-Out/Discharge Documenting (check all that apply): Patient Departure - ADMIT All imaging exams completed and their final reports reviewed: No Studies Patient Received Moderate/Deep Sedation with Procedure: No - Discharge Plan Condition: Stable Disposition: ADMITTED TO [facility] - Billing Disposition and Condition Condition: STABLE Disposition: Admitted to [facility] - Attestation Statements Document Initiated by Patrickibe: Yes Documenting Scribe: Caitlyn Pace Provider For Whom Rhoda is Documenting (Include Credential): Dr. Mike Terrell MD Scribe Attestation: Caitlyn Novoa, scribed for Dr. Mike Terrell MD on 01/05/19 at 0959. Scribe Documentation Reviewed: Yes Provider Attestation: The documentation as recorded by the Caitlyn bailey accurately reflects the service I personally performed and the decisions made by , Dr. Mike Terrell MD Status of Scribe Document: Viewed
[2019-01-04 16:22] LABS: INR 1.29 (0.77-1.02)
[2019-01-04] MEDS: NS 0.9% 1000 ML** 2,000 ML IV ONE (16:24)
[2019-01-04 16:30] LABS: Hematocrit 35 % (36-46); Mean Corpuscular HGB Conc 34 g/dL (31-36); Mean Corpuscular Hemoglobin 30 pg (27-31); Mean Corpuscular Volume 89 fL (80-94); Mean Platelet Volume 9.5 fL (7.4-10.4); Platelet Count 207 10^3/uL (150-450); Red Blood Count 3.99 10^6 /uL (4.18-5.48); Red Cell Distribution Width 17 % (10.5-15); White Blood Count 11.5 10^3/uL (3.5-10.8)
[2019-01-04 16:34] LABS: ALT 77 U/L (7-52); AST 86 U/L (13-39); Albumin 3.1 g/dL (3.2-5.2); Albumin/Globulin Ratio 1.3 (1-3); Alkaline Phosphatase 349 U/L (34-104); Anion Gap 13 mmol/L (2-11); BUN/Creatinine Ratio 17.8 (8-20); Blood Urea Nitrogen 34 mg/dL (6-24); CO2 Carbon Dioxide 22 mmol/L (22-32); Calcium 8.6 mg/dL (8.6-10.3); Chloride 95 mmol/L (101-111); EGFR African American 42.2 (>60); EGFR Non-African American 34.9 (>60); Globulin 2.3 g/dL (2-4); Glucose 116 mg/dL (70-100); Potassium 3.2 mmol/L (3.5-5.0); Sodium 130 mmol/L (135-145); Total Protein 5.4 g/dL (6.4-8.9)
[2019-01-04 16:38] LABS: Troponin I 0.09 ng/mL (<0.04)
[2019-01-04 17:03] LABS: Immature Granulocytes 8 % (0-9); Lymphocytes % 4 %; Monocytes % 6 %; Neutrophil % 80 %
[2019-01-04] MEDS ORDERED: Piperacillin/Tazobac ADVAN(*) 3.375 GM in NS 0.9% 100 ML* 100 ML IVPB ONE ×2 (17:13→19:11)
[2019-01-04 17:16] LABS: ABS Basophils 0.1 10^3/ul (0-0.2); ABS Eosinophils 0.1 10^3/ul (0-0.6); ABS Neutrophils 10.1 10^3/ul (1.5-7.7)
[2019-01-04 17:17] LABS: ABS Nucleated RBC 0 10^3/ul; Nucleated Red Blood Cells % 0
[2019-01-04] MEDS ORDERED: oxyCODONE/Acetamin 5/325 MG* TAB PO PRN (19:09)
[2019-01-04] MEDS ORDERED: Piperacillin/Tazobac (*) 3.375 GM BAG ONE (19:31)
[2019-01-04 19:34] LABS: Urine Appearance Cloudy; Urine Bacteria Absent (Absent); Urine Bilirubin 2+ (Negative); Urine Blood 1+ (Negative); Urine Color Amber; Urine Glucose Negative (Negative); Urine Ketones Negative (Negative); Urine Nitrite Negative (Negative); Urine Protein Negative (Negative); Urine Red Blood Cell Trace(0-2/hpf) (Absent); Urine Urobilinogen Positive (Negative); Urine White Blood Cell 1+(6-10/hpf) (Absent)
[2019-01-04] MEDS ORDERED: Zosyn per Pharmacy* NOTE FOLLOW UP SCH (20:00)
--- NOTE | 2019-01-04 21:08 | HP ---
HISTORY AND PHYSICAL: DATE OF ADMISSION: 01/04/19 REASON FOR ADMISSION: Fever, status post biliary stents. HISTORY OF PRESENT ILLNESS: Mr. Pitts is a 73-year-old male with recently recurrent squamous cell lung cancer and a large central liver lesion. He presented with marked increase in his bilirubin and on MRCP was found to be obstructed. He was seen by Dr. Ceron at [facility] and had ERCP with bilateral biliary stents placed on 01/02/19. He had a 7-Pu[place] x 5 cm long double-pigtail plastic biliary stent passed into the left, a 7-[place] x 15 cm long duodenal plastic biliary stent into the straight right segment, and a 7-[place]ican x 7 cm long double-pigtail plastic biliary stent into the angulated right. Procedure went without complications. procedure, he felt reasonably well. [place] like his tests were improving. He has had right-sided pain since having the stents placed. Yesterday, he did fine during the day. Last night, he developed chills. He had 5 more episodes of chills through last night and this morning. The shaking would be so bad that he could not use the phone or hold anything. He vomited times once around midnight, but has not vomited since, he has not been eating much. This afternoon, he had a temperature of 100.4 and called [facility] and was instructed to come to the emergency room. Since being in the emergency room, he has had a temperature low at 97.6, he does say he took Tylenol. He was tachycardic on presentation, pulse rate of 128, blood pressure was 87/57, O2 sat 97%, respirations 27. He received 1 dose of Zosyn antibiotics and IV fluids. At this time, his blood pressure is 113/73 and his pulse is 98. He had blood cultures sent twice. Blood work shows a white count 11.5 which is elevated, hemoglobin 12, platelets 207,000, and he has a left shift. His bilirubin is 23.5, increased by 20 from 21.8 at the time of the procedure 2 days ago. His creatinine is 1.91, which is slightly increased from his baseline. He had a chest x-ray that showed left lung infiltrate. PAST MEDICAL HISTORY: 1. Non-small cell lung cancer. Squamous cell cancer diagnosed in 2004 after he presented with 4 months of a cough. On PET scan, a solitary lesion and it was biopsied up at [facility]. He had a lobectomy on 05/27/[address] Paredes at [facility]. Pathology showed a 2.3 cm squamous cell cancer, moderately differentiated with 1 of 2 peribronchial nodes and negative mediastinal lymph nodes. He received adjuvant radiation followed by chemotherapy with cisplatin and etoposide. Completed adjuvant chemotherapy in August 2016. Followup PET scan in November 2016 was negative. Came into clinic in November 2018 with new increase in LFTs. CT scan showed large central liver lesion. 2. Biliary obstruction. He had a bilirubin that was normal 12/06/18, then 9.9 on 12/22/18, rising to 19.3 on 12/29/18 and 23.5 today. Alkaline phosphatase was mildly elevated at 320 on 12/06/18, then jose elias up to 503 on 12/29/18 and is now 349, similar with AST and ALT. Stents placed 2 days ago. 3. Chronic renal insufficiency. 4. Disk disease, status post surgery. 5. Enlarged prostate. 6. GERD. 7. Hypertension. 8. History of prostate cancer. 9. Sleep apnea. PAST SURGICAL HISTORY: He had the lobectomy done in 2015. He had surgery on his foot and herniated disk in 2012. MEDICATIONS: 1. Finasteride 5 mg a day. 2. Hydroxyzine 25 mg q.6 p.r.n. 3. Singulair 10 mg daily. 4. Omeprazole 20 mg b.i.d. 5. Levocetirizine 5 mg daily. ALLERGIES: SULFA. FAMILY HISTORY: No cancer. SOCIAL HISTORY: Quit smoking almost 3 years ago, but had over a [id number] history. Retired from [employer]. He has 3 children and 2 grandchildren. REVIEW OF SYSTEMS: General: Fevers, chills at home. HEENT: Jaundice. Lungs : He has sternal chest pain since the procedure, but no shortness of breath. Cardiac: Negative. GI: Eating some since the procedure, not in the last 12 hours. Some right upper quadrant pain. Bowel movements were yellow to white and now they are brown. : Urinating a lot. Musculoskeletal: No complaints. Skin: Jaundice, otherwise negative. Neurologic: Alert and oriented. PHYSICAL EXAMINATION VITAL SIGNS: BP 113/73, pulse 98, respirations 22, O2 sat 96% on room air, last temperature was about 97.6. HEENT: Markedly jaundiced, slightly edematous. No oral lesions. No lymphadenopathy. LUNGS: Clear to auscultation bilaterally. HEART: Regular rate and rhythm. S1, S2. Tachycardic. ABDOMEN: No tenderness to palpation. Good bowel sounds. I cannot palpate his liver or spleen. He is obese. EXTREMITIES: +2 edema bilaterally. NEUROLOGIC: Alert and oriented x3. Grossly nonfocal. DIAGNOSTIC STUDIES/LAB DATA: Labs as noted above. Chest x-ray shows a questionable left lower lobe infiltrate. ASSESSMENT AND PLAN: A 73-year-old male 2 days status post placement of 3 biliary stents at [facility], who presents with shaking chills and a temperature of 100.4 at home. Differential diagnosis includes ascending cholangitis, aspiration during the procedure with developing pneumonia, urinary tract infection from decreased urine output, could be tumor fevers or just late effect of anesthesia. 1. Blood cultures are pending. We will admit him overnight with IV Zosyn. If no fevers or chills overnight, culture negative and he is feeling well in the morning, potential discharge on Augmentin. 2. Normal saline at 100 cc per hour. 3. We will recheck chest x-ray in the morning and send a UA now. 4. Continue most of his home medications, hold the Singulair. 5. High risk, DVT prophylaxis. 6. We will repeat bilirubin in the morning, I would consider it stable today from his procedure and time will tell if he improves. 7. He is asking about treatment of the cancer. I reaffirmed that it is not clear that there would be any treatment, we will need to follow the bilirubin. 8. He remains full code at this time. [id number]/CPS #: [id number] [facility]
[2019-01-04] MEDS: Pantoprazole TAB * 40 MG TAB PO SCH (21:53)
[2019-01-04] MEDS: hydrOXYzine HCL TAB* 25 MG PO PRN (21:54)
[2019-01-04] MEDS: NS 0.9% 1000 ML** 1,000 ML IV SCH (22:08)
[2019-01-04] MEDS: ZOSYN 3.375 GM Q8H per EXTENDED INFUSION IVPB SCH ×2 (22:13)
[2019-01-05] MEDS: hydrOXYzine HCL TAB* 25 MG PO PRN ×3 (03:47→20:21)
[2019-01-05] MEDS: ZOSYN 3.375 GM Q8H per EXTENDED INFUSION IVPB SCH ×6 (05:33→21:59)
[2019-01-05 07:06] LABS: ALT 62 U/L (7-52); AST 71 U/L (13-39); Albumin 2.6 g/dL (3.2-5.2); Albumin/Globulin Ratio 1.4 (1-3); Alkaline Phosphatase 253 U/L (34-104); Anion Gap 5 mmol/L (2-11); BUN/Creatinine Ratio 18.3 (8-20); Blood Urea Nitrogen 31 mg/dL (6-24); CO2 Carbon Dioxide 25 mmol/L (22-32); Calcium 8.1 mg/dL (8.6-10.3); Chloride 103 mmol/L (101-111); EGFR African American 48.6 (>60); EGFR Non-African American 40.2 (>60); Globulin 1.9 g/dL (2-4); Glucose 93 mg/dL (70-100); Potassium 3.5 mmol/L (3.5-5.0); Sodium 133 mmol/L (135-145); Total Protein 4.5 g/dL (6.4-8.9)
[2019-01-05 07:38] LABS: Hematocrit 31 % (36-46); Hemoglobin 10.7 g/dL (14.0-18.0); Mean Corpuscular HGB Conc 35 g/dL (31-36); Mean Corpuscular Hemoglobin 31 pg (27-31); Mean Corpuscular Volume 88 fL (80-94); Mean Platelet Volume 9.4 fL (7.4-10.4); Platelet Count 151 10^3/uL (150-450); Red Blood Count 3.51 10^6 /uL (4.18-5.48); Red Cell Distribution Width 17 % (10.5-15); White Blood Count 6.9 10^3/uL (3.5-10.8)
[2019-01-05] MEDS: Pantoprazole TAB * 40 MG TAB PO SCH ×2 (07:43→20:21)
[2019-01-05] MEDS: Finasteride TAB* 5 MG PO SCH (07:43)
[2019-01-05] MEDS: Cetirizine* 10 MG TAB PO SCH (07:43)
[2019-01-05 08:06] LABS: Lymphocytes % 14 %; Monocytes % 7 %; Neutrophil % 77 %
[2019-01-05 08:17] LABS: ABS Eosinophils 0.1 10^3/ul (0-0.6); ABS Neutrophils 5.3 10^3/ul (1.5-7.7)
[2019-01-05 08:43] LABS: Troponin I 0.05 ng/mL (<0.04)
[2019-01-05] MEDS: NS 0.9% 1000 ML** 1,000 ML IV SCH ×2 (09:35→21:59)
--- NOTE | 2019-01-05 10:54 | PN ---
Progress Note - Progress Note Date of Service: 01/05/19 SOAP: Subjective: [Xander reported that he is feeling much better this am. No further fever or chills. RUQ pain has improved. No n/v/d.] Objective: [ Vital Signs: Temp Pulse Resp BP Pulse Ox 97.5 F 87 16 119/62 97 01/05/19 05:53 01/05/19 05:53 01/05/19 07:51 01/05/19 05:53 01/05/19 07:51 Cetirizine HCl (Zyrtec*) 10 mg PO DAILY [facility] Last Admin: 01/05/19 07:43 Dose: 10 mg Finasteride (Proscar Tab*) 5 mg PO DAILY [facility] Last Admin: 01/05/19 07:43 Dose: 5 mg Hydroxyzine HCl (Atarax Tab*) 25 mg PO QID PRN PRN Reason: ITCHING Last Admin: 01/05/19 03:47 Dose: 25 mg Sodium Chloride (Ns 0.9% 1000 Ml) 1,000 mls @ 100 mls/hr IV PER RATE [facility] Last Admin: 01/05/19 09:35 Dose: 100 mls/hr Piperacillin Sod/Tazobactam (Sod 3.375 gm/ Sodium Chloride) 100 mls @ 25 mls/ hr IVPB Q8H [facility] Last Admin: 01/05/19 05:33 Dose: 25 mls/hr Oxycodone/Acetaminophen (Percocet 5/325 Tab*) 1 tab PO Q4H PRN PRN Reason: Pain Pantoprazole Sodium (Protonix Tab*) 40 mg PO BID [facility] Last Admin: 01/05/19 07:43 Dose: 40 mg Pharmacy Consult (Zosyn Per Pharmacy*) 1 note FOLLOW UP .ZOSYN PER PHARMACY [facility] Laboratory Results - last 24 hr 01/04/19 01/04/19 01/04/19 16:05 16:05 16:05 WBC 11.5 H RBC 3.99 L Hgb 12.0 L Hct 35 L MCV 89 MCH 30 MCHC 34 RDW 17 H Plt Count 207 MPV 9.5 Neut % (Auto) Not Reportable Lymph % (Auto) Not Reportable [place] % (Auto) Not Reportable Eos % (Auto) Not Reportable Baso % (Auto) Not Reportable Absolute Neuts (auto) Not Reportable Absolute Lymphs (auto) Not Reportable Absolute Monos (auto) Not Reportable Absolute Eos (auto) Not Reportable Absolute Basos (auto) Not Reportable Absolute Nucleated RBC 0 Immature Gran % 8 Neutrophils % 80 Band Neutrophils % 8 Lymphocytes % 4 Monocytes % 6 Eosinophils % 1 Basophils % 1 Nucleated RBC % 0 Abs Neuts (Manual) 10.1 H Abs Lymphs (Manual) 0.5 L Abs Monocytes (Manual) 0.7 Absolute Eos (Manual) 0.1 Abs Basophils (Manual) 0.1 Normal RBC Morphology Not Reportable Anisocytosis 1+ INR (Anticoag Therapy) 1.29 H APTT 34.0 Sodium 130 L Potassium 3.2 L Chloride 95 L Carbon Dioxide 22 Anion Gap 13 H BUN 34 H Creatinine 1.91 H Est GFR ( Amer) 42.2 Est GFR (Non-Af Amer) 34.9 BUN/Creatinine Ratio 17.8 Glucose 116 H Lactic Acid Calcium 8.6 Total Bilirubin 23.50 H* AST 86 H ALT 77 H Alkaline Phosphatase 349 H Troponin I 0.09 H* C-Reactive Protein 137.00 H Total Protein 5.4 L Albumin 3.1 L Globulin 2.3 Albumin/Globulin Ratio 1.3 Urine Color Urine Appearance Urine pH Ur Specific [place] Urine Protein Urine Ketones Urine Blood Urine Nitrate Urine Bilirubin Urine Urobilinogen Ur Leukocyte Esterase Urine WBC (Auto) Urine RBC (Auto) Urine Bacteria Urine Glucose 01/04/19 01/04/19 01/04/19 16:05 19:25 19:26 WBC RBC Hgb Hct MCV MCH MCHC RDW Plt Count MPV Neut % (Auto) Lymph % (Auto) [place] % (Auto) Eos % (Auto) Baso % (Auto) Absolute Neuts (auto) Absolute Lymphs (auto) Absolute Monos (auto) Absolute Eos (auto) Absolute Basos (auto) Absolute Nucleated RBC Immature Gran % Neutrophils % Band Neutrophils % Lymphocytes % Monocytes % Eosinophils % Basophils % Nucleated RBC % Abs Neuts (Manual) Abs Lymphs (Manual) Abs Monocytes (Manual) Absolute Eos (Manual) Abs Basophils (Manual) Normal RBC Morphology Anisocytosis INR (Anticoag Therapy) APTT Sodium Potassium Chloride Carbon Dioxide Anion Gap BUN Creatinine Est GFR ( Amer) Est GFR (Non-Af Amer) BUN/Creatinine Ratio Glucose Lactic Acid 1.4 0.9 Calcium Total Bilirubin AST ALT Alkaline Phosphatase Troponin I C-Reactive Protein Total Protein Albumin Globulin Albumin/Globulin Ratio Urine Color Nadia Urine Appearance Cloudy Urine pH 5.0 Ur Specific [place] 1.020 Urine Protein Negative Urine Ketones Negative Urine Blood 1+ A Urine Nitrate Negative Urine Bilirubin 2+ A Urine Urobilinogen Positive A Ur Leukocyte Esterase Negative Urine WBC (Auto) 1+(6-10/hpf) A Urine RBC (Auto) Trace(0-2/hpf) Urine Bacteria Absent Urine Glucose Negative 01/05/19 01/05/19 06:41 06:41 WBC 6.9 RBC 3.51 L Hgb 10.7 L Hct 31 L MCV 88 MCH 31 MCHC 35 RDW 17 H Plt Count 151 MPV 9.4 Neut % (Auto) Not Reportable Lymph % (Auto) Not Reportable [place] % (Auto) Not Reportable Eos % (Auto) Not Reportable Baso % (Auto) Not Reportable Absolute Neuts (auto) Not Reportable Absolute Lymphs (auto) Not Reportable Absolute Monos (auto) Not Reportable Absolute Eos (auto) Not Reportable Absolute Basos (auto) Not Reportable Absolute Nucleated RBC Not Reportable Immature Gran % Neutrophils % 77 Band Neutrophils % Lymphocytes % 14 Monocytes % 7 Eosinophils % 2 Basophils % Nucleated RBC % Not Reportable Abs Neuts (Manual) 5.3 Abs Lymphs (Manual) 1.0 Abs Monocytes (Manual) 0.5 Absolute Eos (Manual) 0.1 Abs Basophils (Manual) Normal RBC Morphology Normal Anisocytosis INR (Anticoag Therapy) APTT Sodium 133 L Potassium 3.5 Chloride 103 Carbon Dioxide 25 Anion Gap 5 BUN 31 H Creatinine 1.69 H Est GFR ( Amer) 48.6 Est GFR (Non-Af Amer) 40.2 BUN/Creatinine Ratio 18.3 Glucose 93 Lactic Acid Calcium 8.1 L Total Bilirubin 19.10 H* D AST 71 H ALT 62 H Alkaline Phosphatase 253 H Troponin I 0.05 H* C-Reactive Protein Total Protein 4.5 L Albumin 2.6 L Globulin 1.9 L Albumin/Globulin Ratio 1.4 Urine Color Urine Appearance Urine pH Ur Specific [place] Urine Protein Urine Ketones Urine Blood Urine Nitrate Urine Bilirubin Urine Urobilinogen Ur Leukocyte Esterase Urine WBC (Auto) Urine RBC (Auto) Urine Bacteria Urine Glucose Exam: Gen: Mildly ill and severely jaundice 73 yo male in NAD HEENT: MMM, scleral icterus CV: RRR, no m/r/g Resp: CTA, no w/c/r Abd: soft, mild RUQ TTP Ext: no edema Skin: jaundice] Assessment: [73 yo male with new diagnosis with recurrent, now metastatic NSCLC with obstructing liver metatstasis s/p ERCP with biliary stenting with Dr Ceron at [facility] 01/02/19. Presented yesterday with c/o fever and chills. Blood cultures now growing EColi in 4/4 bottles.] Plan: [1. EColi bacteremia - likely secondary to post ERCP cholangitis - spoke with proceduralist, Dr Ceron, who recommends against manipulation of the stents at this time and to treat with antibiotics, he does recommend a CT to help r/o presence of liver abscess and help to determine if there has been some decompression of the liver since stent placement - ordered for today - cont Zosyn - requested ID consult to help guide antibiotic coverage and length given presence of biliary stents 2. Obstructive jaundice secondary to metastatic NSCLC - s/p ERCP with biliary stenting 01/02/19 - Tbili stable to improving - cont to monitor - unclear if there will be any treatment options for his metastatic disease - will wait and see if Tbili improves over the coming days to weeks Dispo: cont inpatient stay, pending ID consultation. Discharge planning will largely be based on antibiotic recommendations]
[2019-01-05] MEDS ORDERED: Iodixanol* (CONTRAST) 320 MG/ML 100 ML SDV IV ONE (11:00)
--- NOTE | 2019-01-05 13:57 | CONS ---
CONSULTATION REPORT: DATE OF CONSULT: 01/05/19 REQUESTING PROVIDER: RENETTA Osullivan. CONSULTING SERVICE: Infectious Disease. REASON FOR CONSULTATION: E. coli bacteremia. IMPRESSION: 1. Rigors with Escherichia coli in 4/4 bottles, 2 isolates of Escherichia coli. This in the setting of recent biliary stent placement for obstruction related to liver mass. He had had no constitutional symptoms before the procedure other than those that he attributes to the hyperbilirubinemia including fatigue and anorexia. He has no prosthetic material present, no urinary symptoms, and a benign urinalysis. It seems most likely related to a recent stent placement and intrabiliary guilherme. 2. Kpb-tasqr-elns lung cancer diagnosed in 2004, treated with lobectomy and chemotherapy his port is out, now a liver mass seen in the setting of abnormal liver function tests. A biopsy showed a metastatic carcinoma. RECOMMENDATIONS: 1. Continue zosyn here, will recheck his blood cultures. If he continues to improve then he can change to oral antibiotics once the sensitivity data is back. He can follow up with me in 1-2 weeks. He knows he will need to return to the hospital if return of fever or shaking chills. HISTORY OF PRESENT ILLNESS: 73 year old man with history of lung cancer and new liver mass identified on CT as part of work up for jaundice. [facility], tolerated that well. His bilirubin started coming down and on 01/03/19 developed rigors and chills. It lasted for about 12 hours, so he came to the hospital on the afternoon of 01/04/19. His bilirubin then was 23 and his white count was 11. He was started on Zosyn. Blood cultures were taken, 4/4 growing E. coli. Today, his white count is 7. His bilirubin is 19. ALT 62, down from 77. Alkaline phosphatase 253, down from 349. Creatinine 1.7, down from 1.9. He has not had further fevers, chills, or rigors. His appetite feels a little bit better today. He still has low energy and itching. He has no other prosthetic material present. PAST MEDICAL HISTORY: 1. Fue-aohmb-spvv cancer of the lung in 2004, treated with lobectomy and chemotherapy as well as radiation. 2. Recently diagnosed with liver mass with hyperbilirubinemia, status post biliary stent placement by ERCP. 3. Chronic kidney disease. 4. Degenerative disk disease of the cervical spine, treated with laminectomy. 5. Enlarged prostate. 6. Gastroesophageal reflux disease. 7. Hypertension. 8. History of prostate cancer. 9. Obstructive sleep apnea. MEDICATIONS: 1. Cetirizine. 2. Finasteride. 3. Percocet as needed. 4. Pantoprazole. 5. Zosyn 3.375 g every 8 hours by extended infusion. ALLERGIES: SULFA, caused rash. FAMILY HISTORY: No malignancy. SOCIAL HISTORY: He is a past smoker. He is retired from [employer]. Lives with his in [place]. REVIEW OF SYSTEMS: A 14-point review of systems is negative except as noted above in the history of present illness. PHYSICAL EXAM: Vital Signs: Temperature is 36.4, heart rate 80, respiratory rate 16, blood pressure 119/62, oxygen saturation 97% on room air. In general, he is awake and not in distress. Neurologic: He is oriented x3. Follows all commands. Answers questions. Moves all his extremities. HEENT: There is scleral icterus. There is no conjunctivitis. Oropharynx without lesions. Neck is supple without mass. Heart has regular rate and rhythm without murmurs, rubs , or gallops. Lungs are clear to auscultation bilaterally. Abdomen: Soft, nontender, nondistended. There are bowel sounds present. There is no right upper quadrant tenderness to palpation. Skin: There is face and arm jaundice. There is no rash. DIAGNOSTIC STUDIES/LAB DATA: Creatinine 1.7. White blood cell count 7, hemoglobin 10.7, platelets 157. Please see impressions and recommendations outlined above, which I discussed with RENETTA Osullivan. Thank you for asking me to see Mr. Pitts in consultation. [id number]/[facility] #: [id number] MEGAN
[2019-01-05] MEDS: Simethicone TAB* 80 MG TAB.CHEW PO PRN (18:59)
[2019-01-06] MEDS: hydrOXYzine HCL TAB* 25 MG PO PRN ×2 (02:06→08:00)
[2019-01-06 02:38] VITALS: BP 122/67
[2019-01-06] MEDS: Simethicone TAB* 80 MG TAB.CHEW PO PRN (03:55)
[2019-01-06] MEDS: ZOSYN 3.375 GM Q8H per EXTENDED INFUSION IVPB SCH ×2 (05:33)
[2019-01-06] MEDS: NS 0.9% 1000 ML** 1,000 ML IV SCH (07:52)
[2019-01-06] MEDS: Pantoprazole TAB * 40 MG TAB PO SCH (08:00)
[2019-01-06] MEDS: Finasteride TAB* 5 MG PO SCH (08:00)
[2019-01-06] MEDS: Cetirizine* 10 MG TAB PO SCH (08:00)
[2019-01-06 08:47] LABS: Albumin 2.6 g/dL (3.2-5.2); Calcium 8.1 mg/dL (8.6-10.3); Potassium 3.3 mmol/L (3.5-5.0)
[2019-01-06 08:49] LABS: Hematocrit 31 % (36-46); Hemoglobin 10.7 g/dL (14.0-18.0); Mean Corpuscular HGB Conc 35 g/dL (31-36); Mean Corpuscular Hemoglobin 31 pg (27-31); Mean Corpuscular Volume 90 fL (80-94); Mean Platelet Volume 9.4 fL (7.4-10.4); Platelet Count 186 10^3/uL (150-450); Red Blood Count 3.44 10^6 /uL (4.18-5.48); Red Cell Distribution Width 17 % (10.5-15); White Blood Count 7.3 10^3/uL (3.5-10.8)
[2019-01-06 08:53] LABS: Albumin/Globulin Ratio 1.5 (1-3); BUN/Creatinine Ratio 16.3 (8-20); EGFR African American 54.6 (>60); EGFR Non-African American 45.1 (>60); Globulin 1.7 g/dL (2-4); Total Protein 4.3 g/dL (6.4-8.9)
[2019-01-06 09:15] LABS: Total Bilirubin 19.9 mg/dL (0.2-1.0)
[2019-01-06 09:23] LABS: ABS Neutrophils 5.1 10^3/ul (1.5-7.7); Lymphocytes % 15 %; Monocytes % 10 %; Neutrophil % 70 %
[2019-01-06 09:24] LABS: ABS Basophils 0.2 10^3/ul (0-0.2); ABS Eosinophils 0.1 10^3/ul (0-0.6)
--- NOTE | 2019-01-06 13:32 | DS ---
CC: Mihaela Mota NP * DISCHARGE SUMMARY: DATE OF ADMISSION: 01/04/19 DATE OF DISCHARGE: 01/06/19 PRIMARY CARE PROVIDER: Mihaela Mota NP. CONSULTING INFECTIOUS DISEASE SPECIALIST: Dr. Leander Merida. PRIMARY ONCOLOGIST AND ATTENDING PHYSICIAN: Dr. Jan Ramos.* (DICTATED BY RENETTA TALLEY) DISCHARGING PROVIDER: RENETTA Talley. PRIMARY DISCHARGE DIAGNOSES: 1. Post endoscopic retrograde cholangiopancreatography cholangitis. 2. Obstructive jaundice. 3. Metastatic wra-xbmyr-qnga lung cancer. DISCHARGE MEDICATIONS: 1. Finasteride 5 mg p.o. daily. 2. Atarax 25 mg p.o. 4 times daily as needed for itching. 3. Levocetirizine 5 mg p.o. daily as needed for itching. 4. Singulair 10 mg p.o. daily. 5. Omeprazole 20 mg p.o. twice daily. 6. Cefdinir 300 mg p.o. twice daily x28 days. HOSPITAL IMAGIN. Chest x-ray, 01/04/19, shows a left lung infiltrate. Recommend followup. 2. Chest x-ray, 01/05/19, shows a persistent left lung consolidation. 3. CT abdomen and pelvis demonstrates central mass of the liver measuring up to 6.8 cm in size with biliary dilatation and pneumobilia with biliary stents in place. 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 The patient underwent ERCP at [facility] with Dr. Ceron on 01/02/19. The patient subsequently presented to the emergency department on the evening of 01/04/19 with complaints of fever and chills. There was initial concern about a possible pneumonia, although he was not complaining about a cough with the left lower lobe infiltrate. The patient has had a prior left lung lobectomy, which likely gave the appearance of an infiltrate. Blood cultures were collected and the patient was empirically treated with Zosyn. Blood cultures eventually grew E. coli in 4/4 blood culture bottles. At the time of admission, he was also complaining of right upper quadrant pain, which subsided shortly after starting antibiotics. The patient remains afebrile during his hospitalization after his initial presentation in the emergency department. Requested consultation from Infectious Disease specialist, Dr. Leander Merida, who recommended a total of 28 days of antibiotics, but could complete those orally and did not require additional IV antibiotics outside of his hospitalization. Contacted proceduralist, Dr. Ceron, at [facility] regarding the suspected complication of post-ERCP cholangitis and E. coli bacteremia. He did not suggest any manipulation of the biliary stents and agreed with the antibiotic plan. He recommended CT of the abdomen to ensure that there was no associated liver abscess. CT did demonstrate biliary stents in place and no evidence for obvious abscess. His tumor appeared unchanged. The patient's bilirubin remained relatively stable during his hospitalization. His bilirubin was 21 on the day of procedure, it was 23 at the time of admission and 19 at the time of discharge. Transaminases remained stable and the patient is asymptomatic with resolution of his prior right upper quadrant pain, but otherwise denying any nausea or vomiting. DISPOSITION AND FOLLOWUP PLAN: The patient is being discharged to home with 28 days of cefdinir, antibiotic decision was made based on sensitivity profile of his E. coli, this is a fluoroquinolone resistant organism. The patient will be seen in followup with Dr. Ramos on 01/10/19, at which point, labs will be repeated. In terms of further treatment plans for his recurrent and now metastatic squamous cell lung carcinoma will depend on whether his bilirubin normalizes following these biliary stents and will be discussed further with Dr. Ramos. The patient is being discharged to home in stable condition. RENETTA TALLEY [id number]/[facility] #: [id number] [facility] NETWORKArie
== END 2019-01-06 10:33 | disposition home or self-care (01) | DRG 919 ==
LOC: ED 15:20 → MED 19:09 → OBSVTOIN 01-05 10:24
PROVIDERS: ADMIT Internal Medicine Hematology & Oncology; ATTEND Internal Medicine Hematology & Oncology
DX: E89.89 Other postprocedural endocrine and metabolic complications and disorders (principal); K83.1 Obstruction of bile duct; K83.09 Other cholangitis; C78.7 Secondary malignant neoplasm of liver and intrahepatic bile duct; C78.00 Secondary malignant neoplasm of unspecified lung; B96.20 Unspecified Escherichia coli [E. coli] as the cause of diseases classified elsewhere; I12.9 Hypertensive chronic kidney disease with stage 1 through stage 4 chronic kidney disease, or unspecified chronic kidney disease; N18.9 Chronic kidney disease, unspecified; N40.0 Benign prostatic hyperplasia without lower urinary tract symptoms; K21.9 Gastro-esophageal reflux disease without esophagitis; G47.30 Sleep apnea, unspecified; Z85.118 Personal history of other malignant neoplasm of bronchus and lung; Z85.46 Personal history of malignant neoplasm of prostate; Z79.899 Other long term (current) drug therapy; Z88.2 Allergy status to sulfonamides; Z87.891 Personal history of nicotine dependence; Z92.21 Personal history of antineoplastic chemotherapy; Z92.3 Personal history of irradiation
CPT/HCPCS: 36415; 71045; 71046; 74177; 80053; 81003; 81015; 83605; 84484; 85025; 85610; 85730; 86140; 87040; 87077; 87086; 87186; 87205; 99284; A9270-GY; J2543; Q9967

== ENCOUNTER 2019-01-15 10:46 | Day surgery (SDC) | payer MEDICARE, BC ==
[2019-01-15] MEDS ORDERED: Lidocaine 1% INJ* 10 MG/ML 30 ML SDV ONE (11:01)
[2019-01-15] MEDS ORDERED: ceFAZolin 2 GM in NS PREMIX(*) 2 GM/100 ML BAG IVPB ONE (11:25)
[2019-01-15] MEDS ORDERED: Midazolam* 1 MG/ML 2 ML VIAL (2 MG) ONE (11:26)
[2019-01-15] MEDS ORDERED: KETAMINE HCL* 50 MG/ML 10 ML VIAL ONE (11:26)
[2019-01-15] MEDS ORDERED: Lidocaine 2% PF * 5 ML VIAL ONE (11:30)
[2019-01-15] MEDS ORDERED: Metoprolol Tartrate IV* 1 MG/ML 5 ML VIAL ONE (12:54)
[2019-01-15] MEDS ORDERED: Naloxone* 0.4 MG/ML 1 ML VIAL IV PRN (13:02)
[2019-01-15] MEDS ORDERED: Acetaminophen TAB* 325 MG PO PRN (13:02)
[2019-01-15] MEDS ORDERED: Ondansetron INJ* 2 MG/ML VIAL IV PRN (13:02)
--- NOTE | 2019-01-15 13:27 | BRIEFOPN ---
Brief Operative Note - Surgery Procedures: OPERATIVE NOTE Pre-Operative Diagnosis: Metastatic Lung cancer Post-Operative Diagnosis:same Procedure:Insertion of right chest wall 8F powerport Surgeon: Dru Webber MD Learning Developer:None Anesthesia: Local with MAC General with Dr. Tabor IVF:min EBL:min Specimen:none Drain: none Wound Class:One TO PACU
[2019-01-15 13:54] VITALS: BP 122/75
--- NOTE | 2019-01-15 23:40 | OP ---
CC: Dr. Jan Ramos * DATE OF OPERATION: 01/15/19 - [facility] DATE OF : 49 SURGEON: Joao Webber MD. ANESTHESIA: Local with monitored anesthesia care with Dr. Tabor. PRE-OP DIAGNOSIS: Metastatic lung cancer. POST-OP DIAGNOSIS: Metastatic lung cancer. OPERATIVE PROCEDURE: Insertion of a right chest wall 8-Vietnamese PowerPort, percutaneously placed. ESTIMATED BLOOD LOSS: Minimal. WOUND CLASSIFICATIONS: 1. COMPLICATIONS: None. DRAINS: None. SPECIMENS: None. DESCRIPTION OF PROCEDURE: Written informed consent was obtained, preoperative antibiotics were administered, and the right chest was marked with indelible ink. The patient was taken to the operating room and placed in the supine position. Sequential compression devices and a warming blanket were applied. The right and left neck and chest were prepped and draped in the usual sterile fashion. Time-out verification was completed. Lidocaine 1% with epinephrine was infiltrated in the right infraclavicular area on the anterior chest and an 18- gauge Cook needle was used to puncture the subclavian vein, passing this under the clavicle. The vein was punctured on the first pass with good blood return and the guidewire was inserted and confirmed to be in the superior vena cava by fluoroscopy. Next, a small transverse incision was made on the anterior chest wall just below the puncture site and a subcutaneous pocket was made inferiorly, large enough to fit the port. A catheter was then tunneled from the pocket site to the initial puncture site. Using the sheath dilator/peel-away system, the catheter was then inserted into the superior vena cava just above the right atrium and confirmed by fluoroscopy. The catheter was cut to the appropriate length and attached to the port, which was placed in the pocket. Castanon needle was used to access the port and it withdrew blood and flushed well and was subsequently flushed with a heparin solution. The port was sutured to the subcutaneous fascia with 2 separate 2-0 Prolene sutures. Hemostasis was assured. The incisions were closed with 3-0 and 4-0 Vicryl sutures. Steri-Strips and sterile dressings were applied. The patient tolerated the procedure well and was taken to the recovery room in stable condition. Post-procedure chest x-ray showed the catheter to be in good position without evidence of a pneumothorax. [id number]/[facility] #: [id number] [facility]PITALArie
== END 2019-01-15 13:58 | disposition home or self-care (01) ==
LOC: OR 10:46
PROVIDERS: ATTEND Surgery
DX: C34.32 Malignant neoplasm of lower lobe, left bronchus or lung (principal); I10 Essential (primary) hypertension; R00.0 Tachycardia, unspecified; C78.7 Secondary malignant neoplasm of liver and intrahepatic bile duct; C78.89 Secondary malignant neoplasm of other digestive organs
CPT/HCPCS: 71045; 76000; 93005; C1788; J0690; J1642; J2250; J3490

== ENCOUNTER 2019-03-11 08:10 | Emergency (ER) | payer MEDICARE, BC ==
[2019-03-11 08:25] VITALS: BP 114/73
--- NOTE | 2019-03-11 08:40 | UC ---
Skin Complaint HPI - HPI Summary HPI Summary: pt was dx w/ thrush on Tuesday, starting on nystatin. yesterday noticed a rash to his groin and sides. he wonders if it is an allergic reaction. - History of Current Complaint Chief Complaint: UCSkin Time Seen by Provider: 03/11/19 08:19 Stated Complaint: ALLERGIC REACTION Hx Obtained From: Patient Onset/Duration: Sudden Onset, Lasting Days Skin Exposure Onset/Duration: Days Ago Timing: Constant Onset Severity: Mild Current Severity: Moderate Pain Intensity: 0 Location: Diffuse Character: Pruritus, Redness Aggravating Factor(s): Other - medication Alleviating Factor(s): Antihistamines Associated Signs & Symptoms: Positive: Rash Related History: Recent change in medication - Allergy/Home Medications Allergies/Adverse Reactions: Allergies Allergy/AdvReac Type Severity Reaction Status Date / Time Sulfa (Sulfonamide Allergy Hives Verified 03/11/19 08:26 Antibiotics) Home Medications: Home Medications Fexofenadine (NF) [Princess 180 (NF)] 03/11/19 [History] Lidocaine/Nystatin/M/Ac/Banop 1 dose PO QID 03/11/19 [History Confirmed 03/11/19 ] Metoprolol Tartrate TAB* [Lopressor TAB*] 25 - 50 mg PO BID 03/11/19 [History Confirmed 03/11/19] Multivitamin [Multivitamins] 1 cap PO DAILY 03/11/19 [History Confirmed 03/11/19 ] PMH/Surg Hx/FS Hx/Imm Hx Previously Healthy: No - liver CA, lung CA - Surgical History Surgical History: Yes Surgery Procedure, Year, and Place: 2011 T1, T2 LAMINOTOMY AND EXCISION OF HERNIATED DISC, [facility]. 2016 RIGHT TOE SURGERY, [facility]. LEFT FOOT REMOVED FIBROMATOSIS TUMORS [id number]. 1/2 LEFT LUNG REMOVED 05/27/16 - Family History Known Family History: Negative: Cardiac Disease, Diabetes - Social History Alcohol Use: None Alcohol Amount: SOCIALLY Substance Use Type: None Smoking Status (MU): Former Smoker Type: Cigarettes Amount Used/How Often: 2 PPD FOR 45 YEARS Have You Smoked in the Last Year: No When Did the Patient Quit Smoking/Using Tobacco: 8 years ago - Immunization History Most Recent Influenza Vaccination: Most Recent Pneumonia Vaccination: 2017 Review of Systems All Other Systems Reviewed And Are Negative: Yes Skin: Positive: Rash Is Patient Immunocompromised?: Yes - chemotherapy Physical Exam Triage Information Reviewed: Yes Appearance: No Pain Distress, Well-Nourished, Ill-Appearing Vital Signs: Initial Vital Signs Temp 98.1 F 03/11/19 08:18 Pulse 122 03/11/19 08:18 Resp 16 03/11/19 08:18 BP 114/73 03/11/19 08:18 Pulse Ox 98 03/11/19 08:18 Vital Signs Reviewed: Yes Eye Exam: Normal ENT: Positive: Other - small white spot noted on upper gum, right side Dental Exam: Normal Neck exam: Normal Respiratory Exam: Normal Cardiovascular Exam: Normal Abdominal Exam: Normal Bowel Sounds: Positive: Present Musculoskeletal Exam: Normal Neurological Exam: Normal Psychological Exam: Normal Skin: Positive: Other - juandice Course/Dx - Course Course Of Treatment: hx obtained, exam performed ,med reviewed, advised to stop medication, gave alternative treatment, advised him to follow up as needed. - Differential Diagnoses - Skin Complaint Differential Diagnoses: Allergic Reaction, Drug Rash, Urticaria - Diagnoses Provider Diagnosis: Allergic reaction caused by a drug Discharge - Sign-Out/Discharge Documenting (check all that apply): Patient Departure All imaging exams completed and their final reports reviewed: No Studies - Discharge Plan Condition: Stable Disposition: HOME Patient Education Materials: General Allergic Reaction (ED) Referrals: Mihaela Mota NP [Primary Care Provider] - Additional Instructions: 1. Stop the mouthwash you are using 2. Use the coconut oil to swish and spit multiple times a day 3. follow up as needed. - Billing Disposition and Condition Condition: STABLE Disposition: Home - Attestation Statements Provider Attestation: I did not see or exam this patient. I was available for consult.
== END 2019-03-11 08:44 | disposition home or self-care (01) ==
LOC: UCEAST 08:10
DX: L27.1 Localized skin eruption due to drugs and medicaments taken internally (principal); T36.7X5A Adverse effect of antifungal antibiotics, systemically used, initial encounter; Y92.9 Unspecified place or not applicable; C34.32 Malignant neoplasm of lower lobe, left bronchus or lung; C78.7 Secondary malignant neoplasm of liver and intrahepatic bile duct; Z88.2 Allergy status to sulfonamides; Z87.891 Personal history of nicotine dependence
CPT/HCPCS: 99211; G0463